=== PATIENT | female | born 1985 | race Caucasian/White ===

== ENCOUNTER 2020-08-17 20:10 | Emergency (ER) | payer SELFPAY ==
[2020-08-17 22:09] LABS: Absolute Lymphocytes (CBC) 2.4 K/uL (0.7-4.9); Hematocrit 37.5 % (36.0-45.0); Lymphocytes % 22.6 % (15.3-44.8); RBC Red Blood Cell Count 4.44 M/uL (3.86-4.86)
[2020-08-17] MEDS ORDERED: MORPHINE 4 MG/ML SYR ONE (22:12)
[2020-08-17] MEDS ORDERED: ONDANSETRON 4 MG/2 ML VIAL ONE (22:12)
[2020-08-17 22:26] LABS: Potassium 3.6 mmol/L (3.5-5.1)
[2020-08-17] MEDS ORDERED: METHYLPREDNISOLONE 125 MG INJ ONE (23:39)
--- NOTE | 2020-08-18 00:02 | EDPHYS ---
Physician Documentation [facility] Name: Selena Penn Age: 35 yrs Sex: Female : 1985 Arrival Date: 08/17/2020 Time: 20:15 Bed 17 Private MD: ED Physician Sterling Mercado HPI: 08/17 23:38 This 35 yrs old Female presents to ER via Ambulatory with complaints of jr8 forearm nerve pain. 23:38 The complaints affect the dorsal aspect of left forearm. Onset: The symptoms/episode jr8 began/occurred gradually, 2 week(s) ago, and became worse. Modifying factors: The symptoms are alleviated by nothing. the symptoms are aggravated by movement. Associated signs and symptoms: Pertinent positives: erythema, pain, swelling, warmth. Severity of symptoms: At their worst the symptoms were moderate, in the emergency department the symptoms are unchanged. The patient has not experienced similar symptoms in the past. The patient has not recently seen a physician. 23:58 Patient stated that she has had on/off pain and swelling to left forearm for past two jr8 weeks. Stated that it now is getting more constant. Hypersensitive to touch and feels like pins and needles. Stated that it will get mildly red but without specific rash or lesions . 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 - Social history:: Smoking status: Patient denies any tobacco usage or history of. ROS: 23:38 Eyes: Negative for injury, pain, redness, and discharge, ENT: Negative for injury, jr8 pain, and discharge, Neck: Negative for injury, pain, and swelling, Cardiovascular: Negative for chest pain, palpitations, and edema, Respiratory: Negative for shortness of breath, cough, wheezing, and pleuritic chest pain, Abdomen/GI: Negative for abdominal pain, nausea, vomiting, diarrhea, and constipation, Back: Negative for injury and pain, MS/Extremity: Negative for injury and deformity, Neuro: Negative for headache, weakness, numbness, tingling, and seizure. 23:38 Skin: Positive for erythema, swelling, of the dorsal aspect of left forearm. Exam: 23:38 Eyes: Pupils equal round and reactive to light, extra-ocular motions intact. Lids and jr8 lashes normal. Conjunctiva and sclera are non-icteric and not injected. Cornea within normal limits. Periorbital areas with no swelling, redness, or edema. ENT: Nares patent. No nasal discharge, no septal abnormalities noted. Tympanic membranes are normal and external auditory canals are clear. Oropharynx with no redness, swelling, or masses, exudates, or evidence of obstruction, uvula midline. Mucous membranes moist. Neck: Trachea midline, no thyromegaly or masses palpated, and no cervical lymphadenopathy. Supple, full range of motion without nuchal rigidity, or vertebral point tenderness. No Meningismus. Cardiovascular: Regular rate and rhythm with a normal S1 and S2. No gallops, murmurs, or rubs. Normal PMI, no JVD. No pulse deficits. Respiratory: Lungs have equal breath sounds bilaterally, clear to auscultation and percussion. No rales, rhonchi or wheezes noted. No increased work of breathing, no retractions or nasal flaring. Abdomen/GI: Soft, non-tender, with normal bowel sounds. No distension or tympany. No guarding or rebound. No evidence of tenderness throughout. Back: No spinal tenderness. No costovertebral tenderness. Full range of motion. Skin: Warm, dry with normal turgor. Neuro: Awake and alert, GCS 15, oriented to person, place, time, and situation. Cranial nerves II-XII grossly intact. Motor strength 5/5 in all extremities. Sensory grossly intact. Cerebellar exam normal. Normal gait. 23:38 Musculoskeletal/extremity: Extremities: grossly normal except: noted in the dorsal aspect of left forearm: Patient has mild swelling noted to dorsal forearm with mild redness and moderate tenderness to the arm with both light and moderate touch , ROM: intact in all extremities, Circulation is intact in all extremities. Sensation intact. Vital Signs: 20:23 BP 158 / 109; Pulse 93; Resp 16 S; Temp 99.4(O); Pulse Ox 99% on R/A; Weight 90.72 kg jd3 (R); Height 5 ft. 0 in. (152.40 cm) (R); Pain 6/10; 22:00 BP 144 / 100; Pulse 79; Resp 18; Pulse Ox 99% on R/A; wh 23:45 BP 164 / 96; Pulse 67; Resp 18; Pulse Ox 100% on R/A; Pain 1/10; wh 20:23 Body Mass Index 39.06 (90.72 kg, 152.40 cm) jd3 MDM: 20:44 Patient medically screened. jr8 23:58 Data reviewed: vital signs, nurses notes, lab test result(s). Data interpreted: Pulse jr8 oximetry: on room air is 100 %. Interpretation: normal. Counseling: I had a detailed discussion with the patient and/or guardian regarding: the historical points, exam findings, and any diagnostic results supporting the discharge/admit diagnosis, lab results, the need for outpatient follow up, a family practitioner, to return to the emergency department if symptoms worsen or persist or if there are any questions or concerns that arise at home. Response to treatment: the patient's symptoms have markedly improved after treatment. ED course: Color and pain decreased in arm. Patient feeling better. Discussed with patient that this seems to be inflammatory in nature and not infectious at this time. Could also be atypical shingles presentation. Will treat as such. If worse or does not subside to come back or f/u with PCP. Patient good with this . 08/17 21:42 Order name: CBC with Diff; Complete Time: 22:46 jr8 08/17 21:42 Order name: Basic Metabolic Panel; Complete Time: 22:46 jr8 08/17 21:42 Order name: ESR; Complete Time: 22:46 jr8 08/17 21:42 Order name: CRP; Complete Time: 22:46 jr8 08/17 21:42 Order name: Procalcitonin; Complete Time: 23:17 jr8 08/17 21:42 Order name: Blood Culture Adult (2) jr8 08/17 21:42 Order name: IV; Complete Time: 21:57 jr8 08/17 21:42 Order name: CK; Complete Time: 22:46 jr8 Administered Medications: 22:08 Drug: morphine 4 mg {Note: RASS 0.} Route: IVP; Site: right antecubital; 23:20 Follow up: Response: No adverse reaction; Pain is decreased; RASS: Alert and Calm (0) 22:10 Drug: Zofran (Ondansetron) 4 mg Route: IVP; Site: right antecubital; 23:20 Follow up: Response: No adverse reaction; Nausea is decreased 23:36 Drug: SOLU-Medrol 125 mg Route: IVP; Site: right antecubital; 08/18 00:13 Follow up: Response: No adverse reaction 08/17 23:38 Drug: Cefepime 2 grams Route: IVPB; Rate: 200 ml/hr; Infused Over: 30 mins; Site: right antecubital; 08/18 00:13 Follow up: Response: No adverse reaction; IV Status: Completed infusion Disposition: 08/18/20 00:01 Discharged to Home. Impression: Rash and other nonspecific skin eruption, Pain in left forearm. - Condition is Stable. - Discharge Instructions: Shingles. - Prescriptions for Prednisone 20 mg Oral Tablet - take 3 tablet by ORAL route once daily for 5 days; 15 tablet. Acyclovir 800 mg Oral Tablet - take 1 tablet by ORAL route 5 times per day for 7 days; 35 tablet. - Medication Reconciliation Form, Thank You Letter, Antibiotic Education, Prescription Opioid Use form. - Follow up: Private Physician; When: 1 week; Reason: Recheck today's complaints, Continuance of care, Re-evaluation by your physician. - Problem is new. - Symptoms have improved. Addendum: 08/20/2020 01:28 Addendum: Patient called the ER and reports symptoms of body aches along with nausea as p m1 she takes each dose of acyclovir. She has taken prednisone in the past without any issues. Called in a prescription to her pharmacy [facility] in [place] for Valtrex 1 gram PO Q8 for 7 days, dispense #21. 07:10 Co-signature as Attending Physician, Sterling Mercado MD I agree with the assessment and c spencer plan of care. Signatures: Dispatcher [employer] Sterling Mccarthy MD MD cha Roszak, Josh, RAHEL PA jr8 [place], ACUTE CARE NURSE PRACTITIONER ACUTE CARE NURSE PRACTITIONER pm1 Phuc Kang Alexandr Swanson RN RN jd3 Corrections: (The following items were deleted from the chart) 08/18 00:13 00:01 08/18/2020 00:01 Discharged to Home. Impression: Rash and other nonspecific skin wh eruption; Pain in left forearm. Condition is Stable. Forms are Medication Reconciliation Form, Thank You Letter, Antibiotic Education, Prescription Opioid Use. Follow up: Private Physician; When: 1 week; Reason: Recheck today's complaints, Continuance of care, Re-evaluation by your physician. Problem is new. Symptoms have improved. jr8
--- NOTE | 2020-08-18 00:02 | ER ---
Nurse's Notes [facility] Name: Selena Penn Age: 35 yrs Sex: Female : 1985 Arrival Date: 08/17/2020 Time: 20:15 Bed 17 Private MD: Diagnosis: Rash and other nonspecific skin eruption;Pain in left forearm Presentation: 08/17 20:18 Chief complaint: Patient states: "it started accouple of weeks ago. but i have been jd3 having this on and off rash on my left forearm. regardless of the rash, i am having this burning nerve pain that is starting to spread.". Coronavirus screen: At this time, the client does not indicate any symptoms associated with coronavirus-19. Ebola Screen: Patient negative for fever greater than or equal to 101.5 degrees Fahrenheit, and additional compatible Ebola Virus Disease symptoms. Initial Sepsis Screen: Does the patient meet any 2 criteria? No. Patient's initial sepsis screen is negative. Does the patient have a suspected source of infection? No. Patient's initial sepsis screen is negative. Risk Assessment: Do you want to hurt yourself or someone else? Patient reports no desire to harm self or others. Onset of symptoms was August 17, 2020. 20:18 Method Of Arrival: Ambulatory jd3 20:18 Acuity: SAMSON 3 jd3 20:26 Note Tylenol last taken at about 1200. 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 - Social history:: Smoking status: Patient denies any tobacco usage or history of. Screenin:00 Abuse screen: Denies threats or abuse. Denies injuries from another. Nutritional wh screening: No deficits noted. Tuberculosis screening: No symptoms or risk factors identified. Fall Risk None identified. Assessment: 20:50 General: Appears in no apparent distress. Behavior is calm, cooperative, appropriate wh for age. Pain: Complains of pain in dorsal aspect of left forearm Pain does not radiate. Pain currently is 6 out of 10 on a pain scale. Quality of pain is described as tingling, stinging. Neuro: Level of Consciousness is awake, alert, obeys commands, Oriented to person, place, time, situation, Appropriate for age Reports paresthesias. Cardiovascular: Capillary refill < 3 seconds. Respiratory: Airway is patent Respiratory effort is even, unlabored, Respiratory pattern is regular, symmetrical. GI: Abdomen is flat, non-distended. : No signs and/or symptoms were reported regarding the genitourinary system. EENT: No signs and/or symptoms were reported regarding the EENT system. Derm: Skin is intact, is healthy with good turgor, Skin is pink, warm \\T\\ dry. normal. Musculoskeletal: Circulation, motion, and sensation intact. 22:30 Reassessment: Patient appears in no apparent distress at this time. No changes from previously documented assessment. Patient and/or family updated on plan of care and expected duration. Pain level reassessed. Patient is alert, oriented x 3, equal unlabored respirations, skin warm/dry/pink. 23:54 Reassessment: Patient appears in no apparent distress at this time. Patient and/or family updated on plan of care and expected duration. Pain level reassessed. Patient is alert, oriented x 3, equal unlabored respirations, skin warm/dry/pink. Patient states feeling better. Patient states symptoms have improved. Vital Signs: 20:23 BP 158 / 109; Pulse 93; Resp 16 S; Temp 99.4(O); Pulse Ox 99% on R/A; Weight 90.72 kg jd3 (R); Height 5 ft. 0 in. (152.40 cm) (R); Pain 6/10; 22:00 BP 144 / 100; Pulse 79; Resp 18; Pulse Ox 99% on R/A; wh 23:45 BP 164 / 96; Pulse 67; Resp 18; Pulse Ox 100% on R/A; Pain 1/10; wh 20:23 Body Mass Index 39.06 (90.72 kg, 152.40 cm) jd3 ED Course: 20:15 Patient arrived in ED. am2 20:20 Triage completed. jd3 20:22 Arm band placed on. jd3 20:31 Phuc Kang is Primary Nurse. 20:43 Alejandro Stover PA is PHCP. jr8 20:43 Sterling Mercado MD is Attending Physician. jr8 21:00 Patient has correct armband on for positive identification. Bed in low position. Call light in reach. Side rails up X 1. Pulse ox on. NIBP on. 21:00 Inserted saline lock: 20 gauge in right antecubital area, using aseptic technique. Blood collected. 08/18 00:12 No provider procedures requiring assistance completed. IV discontinued, intact, bleeding controlled, No redness/swelling at site. Administered Medications: 08/17 22:08 Drug: morphine 4 mg {Note: RASS 0.} Route: IVP; Site: right antecubital; 23:20 Follow up: Response: No adverse reaction; Pain is decreased; RASS: Alert and Calm (0) 22:10 Drug: Zofran (Ondansetron) 4 mg Route: IVP; Site: right antecubital; 23:20 Follow up: Response: No adverse reaction; Nausea is decreased 23:36 Drug: SOLU-Medrol 125 mg Route: IVP; Site: right antecubital; 08/18 00:13 Follow up: Response: No adverse reaction 08/17 23:38 Drug: Cefepime 2 grams Route: IVPB; Rate: 200 ml/hr; Infused Over: 30 mins; Site: right antecubital; 08/18 00:13 Follow up: Response: No adverse reaction; IV Status: Completed infusion Outcome: 00:01 Discharge ordered by . jr8 00:13 Discharged to home ambulatory. 00:13 Condition: stable 00:13 Discharge instructions given to patient, Instructed on discharge instructions, follow up and referral plans. medication usage, POC Demonstrated understanding of instructions, follow-up care, medications, POC Prescriptions given X 2. 00:13 Patient left the ED. Signatures: Alejandro Stover PA PA jr8 Meena Good Winsy Alexandr Swanson, RN RN jd3 Corrections: (The following items were deleted from the chart) 08/17 20:26 20:23 Pulse 93bpm; Resp 16bpm; Spontaneous; Pulse Ox 99% RA; Temp 99.4F Oral; 90.72 kg jd3 Reported; Height 5 ft. 0 in. Reported; BMI: 39.0; Pain 6/10; jd3 23:55 23:45 BP 164 / 96; Pulse 67bpm; Resp 18bpm; Pulse Ox 100% RA; wh wh
[2020-08-18 00:26] VITALS: TEMP 99.4
[2020-08-18 00:29] VITALS: BP 164/96; O2SAT 100
== END 2020-08-18 00:13 | disposition home or self-care (01) ==
LOC: ER 20:10
DX: R21 Rash and other nonspecific skin eruption (principal); Z91.040 Latex allergy status; Z91.013 Allergy to seafood; Z91.048 Other nonmedicinal substance allergy status
CPT/HCPCS: 36415; 80048; 82550; 84145; 85025; 85652; 86140; 87040; 96365; 96375; 99284; J2405; J2930

== ENCOUNTER 2020-11-19 12:28 | Emergency (ER) | payer OTHER, SELFPAY ==
[2020-11-19 16:42] LABS: SARS-COV-2 RT PCR NEGATIVE (NEGATIVE)
--- NOTE | 2020-11-19 16:54 | EDPHYS ---
Physician Documentation 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 0 in. (152.40 cm); 17:10 BP 130 / 78; Pulse 111; Resp 22; Pulse Ox 99% on R/A; sv 13:02 Body Mass Index 39.06 (90.72 kg, 152.40 cm) sv MDM: 16:54 Patient medically screened. snw 11/19 12:33 Order name: Strep; Complete Time: 15:49 snw 11/19 14:57 Order name: Throat Culture EDMS 11/19 16:42 Order name: COVID-19/FLU A+B; Complete Time: 16:53 EDMS 11/19 16:55 Order name: Recheck VS snw Administered Medications: No medications were administered Disposition: 11/19/20 16:54 Discharged to Home. Impression: Acute upper respiratory infection, unspecified, Acute bronchitis, Acute laryngitis. - Condition is Stable. - Discharge Instructions: Acute Bronchitis, Adult, Laryngitis, Upper Respiratory Infection, Adult. - Prescriptions for promethazine 25 mg Oral Tablet - take 1 tablet by ORAL route every 6 hours As needed; 20 tablet. Prednisone 20 mg Oral Tablet - take 2 tablet by ORAL route once daily for 5 days; 10 tablet. Albuterol Sulfate 90 mcg/actuation - inhale 1-2 puff by INHALATION route every 4-6 hours; 1 Inhaler. Zithromax 500 mg Oral Tablet - take 1 tablet by ORAL route once daily for 5 days; 5 tablet. - Work release form, Medication Reconciliation Form, Thank You Letter, Antibiotic Education, Prescription Opioid Use form. - Follow up: Emergency Department; When: As needed; Reason: Worsening of condition, Recheck today's complaints. Follow up: Private Physician; When: 2 - 3 days; Reason: Recheck today's complaints, Continuance of care, Re-evaluation by your physician. Addendum: 11/29/2020 08:38 Addendum: Pt states she has been hoarse, tired, coughing, with bilateral ear pain since s nw 11/08/20. Low grade, subjective fever. Some occasional streaks of blood with sputum. Skin w/d, afebrile. Hoarse, TM normal bilaterally, pharynx with mild erythema, nose clear. Heart with reg, rate, rhythm with mild tachycardia. Lungs with rhonchi bilaterally and wheeze on forced exhalation. Abd soft, NT, ND, BS x 4 quads positive. Pulses present and equal upper and lower. . 11/30/2020 05:43 Co-signature as Attending Physician, Sterling Mercado MD I agree with the assessment and c spencer plan of care. Signatures: Dispatcher [employer] [facility] [place] Karol Lisa, Sterling Rodríguez RN, MD MD cha Waters, Shelly, MICROFILM EQUIPMENT INSPECTOR-C MICROFILM EQUIPMENT INSPECTOR-Csnw Corrections: (The following items were deleted from the chart) 11/19 15:32 12:34 CORONAVIRUS+ ordered. [facility] 17:11 16:54 11/19/2020 16:54 Discharged to Home. Impression: Acute upper respiratory snw infection, unspecified. Condition is Stable. Forms are Medication Reconciliation Form, Thank You Letter, Antibiotic Education, Prescription Opioid Use. Follow up: Emergency Department; When: As needed; Reason: Worsening of condition, Recheck today's complaints. Follow up: Private Physician; When: 2 - 3 days; Reason: Recheck today's complaints, Continuance of care, Re-evaluation by your physician. snw 17:16 17:11 11/19/2020 16:54 Discharged to Home. Impression: Acute upper respiratory sv infection, unspecified; Acute bronchitis; Acute laryngitis. Condition is Stable. Discharge Instructions: Upper Respiratory Infection, Adult. Prescriptions for promethazine 25 mg Oral Tablet - take 1 tablet by ORAL route every 6 hours As needed; 20 tablet. and Forms are Medication Reconciliation Form, Thank You Letter, Antibiotic Education, Prescription Opioid Use. Follow up: Emergency Department; When: As needed; Reason: Worsening of condition, Recheck today's complaints. Follow up: Private Physician; When: 2 - 3 days; Reason: Recheck today's complaints, Continuance of care, Re-evaluation by your physician. snw
--- NOTE | 2020-11-19 16:54 | ER ---
Nurse's Notes [facility] Name: Selena Penn Age: 35 yrs Sex: Female : 1985 Arrival Date: 11/19/2020 Time: 12:31 Bed Waiting Private MD: Diagnosis: Acute upper respiratory infection, unspecified;Acute bronchitis;Acute laryngitis Presentation: 11/19 13:00 Chief complaint: Patient states: cough, hoarse voice, vomiting with coughing streaked sv blood, sandra ear pain, and dizziness since 11/08/20. Coronavirus screen: Client denies travel out of the [place] in the last 14 days. Client presents with at least one sign or symptom that may indicate coronavirus-19. Standard/surgical mask placed on the client. Provider contacted for isolation considerations. Ebola Screen: No symptoms or risks identified at this time. Risk Assessment: Do you want to hurt yourself or someone else? Patient reports no desire to harm self or others. Onset of symptoms was November 08, 2020. 13:00 Method Of Arrival: Ambulatory sv 13:00 Acuity: SAMSON 3 sv 13:02 Initial Sepsis Screen: Does the patient meet any 2 criteria? No. Patient's initial sv sepsis screen is negative. Does the patient have a suspected source of infection? No. Patient's initial sepsis screen is negative. Triage Assessment: 13:04 General: Appears in no apparent distress. uncomfortable, Behavior is calm, cooperative, sv appropriate for age. Neuro: Level of Consciousness is awake, alert, obeys commands, Oriented to person, place, time, situation, Gait is steady. Respiratory: Respiratory effort is even, unlabored. 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 Denies injuries from another. Nutritional sv screening: No deficits noted. Tuberculosis screening: No symptoms or risk factors identified. Fall Risk None identified. Assessment: 17:10 Reassessment: Patient appears in no apparent distress at this time. No changes from sv previously documented assessment. Patient and/or family updated on plan of care and expected duration. Pain level reassessed. Patient is alert, oriented x 3, equal unlabored respirations, skin warm/dry/pink. See triage assessment. Vital Signs: 13:02 BP 135 / 92; Pulse 108; Resp 20; Temp 98.1; Pulse Ox 98% ; Weight 90.72 kg; Height 5 sv ft. 0 in. (152.40 cm); 17:10 BP 130 / 78; Pulse 111; Resp 22; Pulse Ox 99% on R/A; sv 13:02 Body Mass Index 39.06 (90.72 kg, 152.40 cm) sv ED Course: 12:31 Patient arrived in ED. rg4 13:02 Triage completed. sv 13:02 Arm band placed on. sv 14:20 COVID swab sent to lab. Flu and/or RSV swab sent to lab. Strep swab sent to lab. sv 14:59 Throat Culture Sent. sv 15:50 Rad[facility] Dean [facility]C [facility]. snw 15:50 Sterling Mercado MD is Attending Physician. snw 17:09 Nurse Practitioner and/or Physician Kineseologist to see patient. sv 17:10 Patient has correct armband on for positive identification. sv 17:10 No provider procedures requiring assistance completed. Patient did not have IV access sv during this emergency room visit. 17:13 Karol Lisa RN is Primary Nurse. sv Administered Medications: No medications were administered Outcome: 16:54 Discharge ordered by . snw 17:15 Discharged to home ambulatory. sv 17:15 Condition: stable 17:15 Discharge instructions given to patient, Instructed on discharge instructions, follow up and referral plans. no drinking with medication, no driving heavy equipment, medication usage, Demonstrated understanding of instructions, follow-up care, medications, Prescriptions given X 4. 17:16 Patient left the ED. sv Signatures: Karol Lisa RN RN sv Radha Dean FNP-C FNP-Bcw Zakia Galan rg4 Corrections: (The following items were deleted from the chart) 13:04 13:00 Chief complaint: Patient states: cough, hoarse voice, vomiting with coughing sv streaked blood, and dizziness since 11/08/20. sv 13:05 13:02 Pulse 108bpm; Resp 20bpm; Pulse Ox 98%; Temp 98.1F; 90.72 kg; Height 5 ft. 0 in.; sv BMI: 39.0; sv 17:14 13:02 BP 151 / 123; Pulse 108bpm; Resp 20bpm; Pulse Ox 98%; Temp 98.1F; 90.72 kg; sv Height 5 ft. 0 in.; BMI: 39.0; sv 19:56 17:10 Pulse 111bpm; Resp 22bpm; Pulse Ox 99% RA; sv sv
[2020-11-19 17:40] VITALS: BP 135/92; TEMP 98.1
[2020-11-19 17:42] VITALS: O2SAT 99
== END 2020-11-19 17:16 | disposition home or self-care (01) ==
LOC: ER 12:28
DX: J20.9 Acute bronchitis, unspecified (principal); J04.0 Acute laryngitis; J06.9 Acute upper respiratory infection, unspecified; Z20.822 Contact with and (suspected) exposure to COVID-19; Z91.013 Allergy to seafood; Z91.040 Latex allergy status; Z91.048 Other nonmedicinal substance allergy status
CPT/HCPCS: 87070; 87081; 0240U; 99283

== ENCOUNTER 2021-02-04 21:37 | Emergency (ER) | payer OTHER ==
[2021-02-05] MEDS ORDERED: HYDROCODONE/APAP 10/325 TAB ONE
[2021-02-05] MEDS ORDERED: CYCLOBENZAPRINE 10 MG TAB ONE
[2021-02-05] MEDS ORDERED: LIDOCAINE 4% PATCH ONE (00:01)
[2021-02-05 00:16] LABS: Urine Blood NEGATIVE (NEG); Urine Glucose NEGATIVE (NEG); Urine Protein NEGATIVE (NEG); Urine Specific Gravity 1.025 (1.005-1.030)
--- NOTE | 2021-02-05 00:52 | EDPHYS ---
Physician Documentation [facility] Name: Selena Penn Age: 36 yrs Sex: Female : 1985 Arrival Date: 02/04/2021 Time: 21:40 Bed 17 Private MD: ED Physician Scott Soto HPI: 02/04 23:22 This 36 yrs old Female presents to ER via Ambulatory with complaints of Low pm1 Back Pain. 23:22 The patient presents with pain that is acute. The symptoms are located in the low back. pm1 The pain radiates to the right leg and left leg. The problem was sustained sitting on wooden chair for extended period of time and then when she tried to get up she started experiencing low back pain with radiation to bilateral hamstring area. Onset: The symptoms/episode began/occurred 1 week(s) ago. Modifying factors: The patient symptoms are alleviated by specific position, lying down, the patient symptoms are aggravated by movement, occasionally with walking. Associated signs and symptoms: Pertinent negatives: abdominal pain, dysuria, fever, incontinence, numbness, tingling. Severity of symptoms: in the emergency department the symptoms are actually worse, a " 8" out of "10". The patient has experienced similar episodes in the past, several times, and the symptoms today are exactly the same, to previous sciatica. The patient has not recently seen a physician. 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 - Social history:: Smoking status: Patient denies any tobacco usage or history of. ROS: 23:25 Constitutional: Negative for fever, chills, and weight loss. pm1 23:25 : Negative for injury, bleeding, discharge, and swelling, MS/Extremity: Negative for injury and deformity, Skin: Negative for injury, rash, and discoloration. 23:25 Cardiovascular: Negative for chest pain, palpitations, and edema, Respiratory: Negative for shortness of breath, cough, wheezing, and pleuritic chest pain, Abdomen/GI: Negative for abdominal pain, nausea, vomiting, diarrhea, and constipation. 23:25 Back: Positive for pain with movement, radiated pain, of the low back area, Negative for injury or acute deformity. 23:25 Neuro: Negative for numbness, tingling, weakness. Exam: 23:25 Constitutional: This is a well developed, well nourished patient who is awake, alert, pm1 and in no acute distress. Head/Face: Normocephalic, atraumatic. Neck: Trachea midline, no thyromegaly or masses palpated, and no cervical lymphadenopathy. Supple, full range of motion without nuchal rigidity, or vertebral point tenderness. No Meningismus. 23:25 Cardiovascular: Exam negative for acute changes, Rate: normal, Rhythm: regular, Pulses: no pulse deficits are appreciated. 23:25 Respiratory: Exam negative for acute changes, respiratory distress, shortness of breath. 23:25 Abdomen/GI: Inspection: obese Palpation: abdomen is soft and non-tender, in all quadrants. 23:25 Back: normal spinal alignment noted, muscle spasm, is appreciated in the left low back and right low back, Straight leg raises: right lower extremity does not illicit pain, left lower extremity illicits pain, at 30 degrees. 23:25 Skin: Warm, dry with normal turgor. Normal color with no rashes, no lesions, and no pm1 evidence of cellulitis. MS/ Extremity: Pulses equal, no cyanosis. Neurovascular intact. Full, normal range of motion. 23:25 Neuro: Orientation: is normal, Mentation: is normal, Motor: moves all fours, strength is 5/5 in all extremities, strength is 5/5 in the dorsi and plantar flexion of bilateral great toes, Sensation: is normal, no obvious gross deficits. Vital Signs: 21:47 BP 156 / 103; Pulse 96; Resp 17; Temp 98.9; Pulse Ox 99% ; Weight 92.99 kg; Height 5 ll1 ft. 0 in. (152.40 cm); Pain 9/10; 21:47 Body Mass Index 40.04 (92.99 kg, 152.40 cm) ll1 MDM: 23:10 Patient medically screened. pm1 02/05 00:43 Data reviewed: vital signs. Data interpreted: Pulse oximetry: on room air is 99 %. pm1 Interpretation: normal. Counseling: I had a detailed discussion with the patient and/or guardian regarding: the historical points, exam findings, and any diagnostic results supporting the discharge/admit diagnosis, the need for outpatient follow up, a family practitioner, a neurosurgeon, MRI, to return to the emergency department if symptoms worsen or persist or if there are any questions or concerns that arise at home. 01:09 ED course: Patient reports improvement in symptoms post massage to lower back spasms. pm1 02/04 23:45 Order name: Urine Dipstick--Ancillary (enter results) mw2 02/04 23:45 Order name: Urine --Ancillary (enter results) mw2 02/04 23:45 Order name: Urine Dipstick-Ancillary; Complete Time: 00:22 EDMS 02/04 23:45 Order name: Urine --Ancillary; Complete Time: 00:22 EDMS 02/04 23:19 Order name: Urine Dipstick-Ancillary (obtain specimen); Complete Time: 23:29 pm1 02/04 23:19 Order name: Urine Test (obtain specimen); Complete Time: 23:29 pm1 Administered Medications: 02/04 23:46 Drug: Lidoderm 5 % (700 mg/patch) 1 patches Route: Topical; Site: affected area; sf 02/05 00:53 Follow up: Response: No adverse reaction; Pain is decreased sf 02/04 23:46 Drug: [place] 10 mg-325 mg 1 tabs Route: PO; sf 02/05 00:53 Follow up: Response: No adverse reaction; Pain is decreased sf 02/04 23:46 Drug: Flexeril (cyclobenzaprine) 10 mg Route: PO; sf 02/05 00:53 Follow up: Response: No adverse reaction; Pain is decreased sf 01:00 Drug: Decadron 10 mg Route: IM; Site: left ventrogluteal; sf 01:20 Follow up: Response: No adverse reaction sf Disposition: 06:31 Co-signature as Attending Physician, Scott Soto MD. ma2 Disposition: 02/05/21 00:51 Discharged to Home. Impression: Low back pain. - Condition is Stable. - Discharge Instructions: Back Pain, Adult, Sciatica. - Prescriptions for Lidoderm 5 % Topical adhesive patch,medicated - apply 1 patch by TRANSDERMAL route once daily As needed 12 hours on and 12 hours off in a 24 hour period; 30 Transdermal Patch. Tylenol- Codeine #3 300-30 mg Oral Tablet - take 2 tablets by ORAL route every 4-6 hours As needed; 20 tablet. Cyclobenzaprine 10 mg Oral Tablet - take 1 tablet by ORAL route every 8 hours As needed; 30 tablet. Medrol (Ezra) 4 mg Oral Tablets, Dose Pack - take 1 tablet by ORAL route as directed - follow package instructions; 1 packet. - Medication Reconciliation Form, Thank You Letter, Antibiotic Education, Prescription Opioid Use form. - Follow up: Emergency Department; When: As needed; Reason: Worsening of condition. Follow up: Private Physician; When: 2 - 3 days; Reason: Recheck today's complaints, Continuance of care, Re-evaluation by your physician. - Problem is new. - Symptoms have improved. 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 Impression: Low back pain. Condition is sf Stable. Discharge Instructions: Back Pain, Adult, Sciatica. Prescriptions for Lidoderm 5 % Topical adhesive patch,medicated - apply 1 patch by TRANSDERMAL route once daily As needed 12 hours on and 12 hours off in a 24 hour period; 30 Transdermal Patch, Tylenol-Codeine #3 300-30 mg Oral Tablet - take 2 tablet by ORAL route every 4-6 hours As needed; 30 tablet, Cyclobenzaprine 10 mg Oral Tablet - take 1 tablet by ORAL route every 8 hours As needed; 30 tablet. and Forms are Medication Reconciliation Form, Thank You Letter, Antibiotic Education, Prescription Opioid Use. Follow up: Emergency Department; When: As needed; Reason: Worsening of condition. Follow up: Private Physician; When: 2 - 3 days; Reason: Recheck today's complaints, Continuance of care, Re-evaluation by your physician. Problem is new. Symptoms have improved. pm1
--- NOTE | 2021-02-05 00:52 | ER ---
Nurse's Notes [facility] Name[facility] Selena Penn Age: 36 yrs Sex: Female : 1985 Arrival Date: 02/04/2021 Time: 21:40 Bed 17 Private MD: Diagnosis: Low back pain Presentation: 02/04 21:47 Chief complaint: Patient states: Low back pain for 2 weeks. Pain radiates into both ll1 legs at times. Left lower back pain is worse than R side today. No MVC or trauma. Coronavirus screen: Client denies travel out of the [place] in the last 14 days. At this time, the client does not indicate any symptoms associated with coronavirus-19. Ebola Screen: Patient denies travel to an Ebola-affected area in the 21 days before illness onset. Initial Sepsis Screen: Does the patient meet any 2 criteria? HR > 90 bpm. No. Patient's initial sepsis screen is negative. Does the patient have a suspected source of infection? Yes: Bone or joint infection. Risk Assessment: Do you want to hurt yourself or someone else? Patient reports no desire to harm self or others. Onset of symptoms was January 21, 2021. 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 - Social history:: Smoking status: Patient denies any tobacco usage or history of. Screenin:15 Abuse screen: Denies threats or abuse. Denies injuries from another. Nutritional sf screening: No deficits noted. Tuberculosis screening: No symptoms or risk factors identified. Never had TB. Possible symptoms: None Risk factors: None. Fall Risk None identified. No fall in past 12 months (0 pts). No secondary diagnosis (0 pts). No IV (0 pts). Ambulatory Aid- None/Bed Rest/Nurse Assist (0 pts). Gait- Impaired (20 pts.). Mental Status- Oriented to own ability (0 pts). Total Hill Fall Scale indicates No Risk (0-24 pts). Assessment: 23:11 General: Appears in no apparent distress. uncomfortable, Behavior is calm, cooperative, sf appropriate for age. Pain: Complains of pain in lumbar area, left low back and right low back Pain radiates to right leg and left leg Pain currently is 9 out of 10 on a pain scale. Neuro: No deficits noted. Level of Consciousness is awake, alert, Oriented to person, place, time, situation. Cardiovascular: No deficits noted. Patient's skin is warm and dry. Respiratory: No deficits noted. Airway is patent Respiratory effort is even, unlabored, Respiratory pattern is regular, symmetrical. GI: No signs and/or symptoms were reported involving the gastrointestinal system. : No signs and/or symptoms were reported regarding the genitourinary system. EENT: No signs and/or symptoms were reported regarding the EENT system. Derm: No signs and/or symptoms reported regarding the dermatologic system. Musculoskeletal: Tenderness present in back Reports pain in back, right leg and left leg Denies weakness in right leg and left leg. Vital Signs: 21:47 BP 156 / 103; Pulse 96; Resp 17; Temp 98.9; Pulse Ox 99% ; Weight 92.99 kg; Height 5 ll1 ft. 0 in. (152.40 cm); Pain 9/10; 21:47 Body Mass Index 40.04 (92.99 kg, 152.40 cm) ll1 ED Course: 21:40 Patient arrived in ED. cl3 21:49 Triage completed. ll1 21:51 Arm band placed on. ll1 23:01 Reynold Francisco RN is Primary Nurse. sf 23:03 Can Bush NP is PHCP. pm1 23:03 Scott Soto MD is Attending Physician. pm1 23:15 Patient has correct armband on for positive identification. Placed in gown. Bed in low sf position. Call light in reach. Side rails up X 1. Door closed. Noise minimized. Visitors limited. Lights dimmed. Verbal reassurance given. 02/05 00:53 Urine --Ancillary (enter results) Sent. sf 00:53 Urine Dipstick--Ancillary (enter results) Sent. sf 01:20 No provider procedures requiring assistance completed. Patient did not have IV access sf during this emergency room visit. Administered Medications: 02/04 23:46 Drug: Lidoderm 5 % (700 mg/patch) 1 patches Route: Topical; Site: affected area; sf 02/05 00:53 Follow up: Response: No adverse reaction; Pain is decreased sf 02/04 23:46 Drug: [place] 10 mg-325 mg 1 tabs Route: PO; sf 02/05 00:53 Follow up: Response: No adverse reaction; Pain is decreased sf 02/04 23:46 Drug: Flexeril (cyclobenzaprine) 10 mg Route: PO; sf 02/05 00:53 Follow up: Response: No adverse reaction; Pain is decreased sf 01:00 Drug: Decadron 10 mg Route: IM; Site: left ventrogluteal; sf 01:20 Follow up: Response: No adverse reaction sf Outcome: 00:51 Discharge ordered by MD. pm1 01:20 Discharged to home ambulatory. sf 01:20 Condition: stable 01:20 Discharge instructions given to patient, Instructed on discharge instructions, follow up and referral plans. medication usage, Demonstrated understanding of instructions, follow-up care, medications, Prescriptions given X 4. 01:21 Patient left the ED. sf Signatures: Can Bush NP SUPERVISOR GRADING pm1 Dustin Burgess cl3 Anaya Burgess RN RN ll1 Reynold Francisco RN RN sf Corrections: (The following items were deleted from the chart) 02/04 23: 21:50 Allergies: Latex, Natural Rubber; ll1 sf 23:15 21:50 Allergies: SHELLFISH; ll1 sf
[2021-02-05] MEDS ORDERED: dexAMETHasone 10 MG/ML VIAL ONE (01:12)
[2021-02-05 01:35] VITALS: BP 156/103; TEMP 98.9; O2SAT 99
== END 2021-02-05 01:21 | disposition home or self-care (01) ==
LOC: ER 21:37
DX: M54.5 Low back pain (principal); Z91.013 Allergy to seafood; Z91.040 Latex allergy status; Z91.048 Other nonmedicinal substance allergy status
CPT/HCPCS: 81025; 81003; J1100; 96372; 99283

== ENCOUNTER 2021-03-12 19:49 | Emergency (ER) | payer OTHER ==
[2021-03-12 21:13] LABS: Urine Blood Trace-intact (Negative); Urine Glucose Negative (Negative); Urine Protein Negative (Negative); Urine Specific Gravity 1.025 (1.005-1.030)
[2021-03-12 21:42] LABS: Basophils % 0.6 % (0-1.3); Hematocrit 37.2 % (36.0-45.0); Lymphocytes % 26.1 % (15.3-44.8); MPV 8.3 fL (7.6-11.3); RBC Red Blood Cell Count 4.45 M/uL (3.86-4.86)
[2021-03-12 21:58] LABS: Urine Specific Gravity/Preg 1.025 (1.005-1.030)
[2021-03-12 22:00] LABS: Albumin 3.6 g/dL (3.4-5.0); Bilirubin Direct 0.2 mg/dL (0-0.2); Bilirubin Total 0.8 mg/dL (0.2-1.0); Potassium 3.4 mmol/L (3.5-5.1); Protein, Total 7.8 g/dL (6.4-8.2)
[2021-03-12] MEDS ORDERED: MAGNES/ALUMIN/SIMET 30ML UCUP ONE (22:07)
[2021-03-12] MEDS ORDERED: ONDANSETRON 4 MG/2 ML VIAL ONE (22:07)
[2021-03-12] MEDS ORDERED: LIDOCAINE VISCOUS 2% SOLN 15 ML UDC ONE (22:07)
--- NOTE | 2021-03-12 23:00 | ER ---
Nurse's Notes [facility] Name: Selena Penn Age: 36 yrs Sex: Female : 1985 Arrival Date: 03/12/2021 Time: 20:02 Bed 17 Private MD: Diagnosis: Gastritis, unspecified Presentation: 03/12 20:28 Chief complaint: Patient states: Epigastric pain x 3 x 4 days, aggravated with eating ca1 and drinking fluids. +nausea. Coronavirus screen: Client denies travel out of the [place] in the last 14 days. nausea, Client presents with at least one sign or symptom that may indicate coronavirus-19. Standard/surgical mask placed on the client. Provider contacted for isolation considerations. Ebola Screen: Patient negative for fever greater than or equal to 101.5 degrees Fahrenheit, and additional compatible Ebola Virus Disease symptoms Patient denies exposure to infectious person. Patient denies travel to an Ebola-affected area in the 21 days before illness onset. No symptoms or risks identified at this time. Initial Sepsis Screen: Does the patient meet any 2 criteria? No. Patient's initial sepsis screen is negative. Does the patient have a suspected source of infection? No. Patient's initial sepsis screen is negative. Risk Assessment: Do you want to hurt yourself or someone else? Patient reports no desire to harm self or others. Onset of symptoms was March 12, 2021. 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 - Social history:: Smoking status: Patient denies any tobacco usage or history of. Screenin:00 Abuse screen: Denies threats or abuse. Denies injuries from another. Nutritional rr5 screening: No deficits noted. Tuberculosis screening: No symptoms or risk factors identified. Fall Risk IV access (20 points). Total Hill Fall Scale indicates No Risk (0-24 pts). Assessment: 21:00 General: Appears in no apparent distress. uncomfortable, Behavior is calm, cooperative, rr5 appropriate for age. 21:00 Pain: Complains of pain in epigastric area Pain currently is 6 out of 10 on a pain rr5 scale. Quality of pain is described as aching, Pain began gradually, Is intermittent. Neuro: Level of Consciousness is awake, alert, obeys commands, Oriented to person, place, time, situation. Cardiovascular: Capillary refill < 3 seconds Patient's skin is warm and dry. Respiratory: Airway is patent Respiratory effort is even, unlabored, Respiratory pattern is regular, symmetrical. GI: Abdomen is round obese, Abd is soft and non tender X 4 quads. Reports upper abdominal pain, nausea. : No signs and/or symptoms were reported regarding the genitourinary system. EENT: No signs and/or symptoms were reported regarding the EENT system. Derm: No signs and/or symptoms reported regarding the dermatologic system. Musculoskeletal: Capillary refill < 3 seconds. 22:10 Reassessment: Patient appears in no apparent distress at this time. Patient is alert, rr5 oriented x 3, equal unlabored respirations, skin warm/dry/pink. awaiting for results. 23:21 Reassessment: Patient appears in no apparent distress at this time. Patient is alert, rr5 oriented x 3, equal unlabored respirations, skin warm/dry/pink. discharge instruction given and explained without complaints made. Vital Signs: 20:28 Pulse 100; Resp 18 S; Temp 98.2(O); Pulse Ox 100% on R/A; Weight 90.72 kg (R); Height 5 ca1 ft. 0 in. (152.40 cm) (R); Pain 6/10; 20:32 BP 152 / 93; ca1 22:20 BP 155 / 107; Pulse 95; Resp 16; Pulse Ox 99% ; rr5 23:22 BP 147 / 99; Pulse 85; Resp 17; Pulse Ox 99% ; rr5 20:28 Body Mass Index 39.06 (90.72 kg, 152.40 cm) ca1 ED Course: 20:02 Patient arrived in ED. ag3 20:32 Triage completed. ca1 20:32 Arm band placed on right wrist. ca1 21:00 Patient has correct armband on for positive identification. Placed in gown. Bed in low rr5 position. Call light in reach. Pulse ox on. NIBP on. 21:03 Alejandro Stover PA is PHCP. jr8 21:03 Reinier Arreola MD is Attending Physician. jr8 21:07 Vitaly Monroy, RN is Primary Nurse. rr5 21:27 Inserted saline lock: 20 gauge in right forearm, using aseptic technique. Blood rr5 collected. 22:58 Wily Chacon MD is Referral Physician. jr8 23:21 No provider procedures requiring assistance completed. IV discontinued, intact, rr5 bleeding controlled, No redness/swelling at site. Pressure dressing applied. Administered Medications: 21:53 Drug: Zofran (Ondansetron) 4 mg Route: IVP; Site: right forearm; rr5 23:24 Follow up: Response: No adverse reaction rr5 22:21 Drug: GI Cocktail without - (Maalox Suspension 30 ml, Lidocaine Liquid 2 % 15 rr5 ml) Route: PO; 23:24 Follow up: Response: No adverse reaction; Pain is decreased rr5 Outcome: 22:59 Discharge ordered by . jr8 23:21 Discharged to home ambulatory. rr5 23:21 Condition: stable 23:21 Discharge instructions given to patient, Instructed on discharge instructions, follow up and referral plans. medication usage, Demonstrated understanding of instructions, follow-up care, medications, Prescriptions given X 2. 23:25 Patient left the ED. rr5 Signatures: Alejandro Stover PA PA jr8 Che Dorman ag3 Vitaly oMnroy, RASHAAD RN rr5 Sona Merino RN RN ca1
--- NOTE | 2021-03-12 23:00 | EDPHYS ---
Physician Documentation [facility] Name: Selena Penn Age: 36 yrs Sex: Female : 1985 Arrival Date: 03/12/2021 Time: 20:02 Bed 17 Private MD: ED Physician Reinier Arreola HPI: 03/12 21:53 This 36 yrs old Female presents to ER via Ambulatory with complaints of Abd jr8 Pain > 50 y/o. 21:53 The patient presents with abdominal pain in the epigastric area. Onset: The jr8 symptoms/episode began/occurred gradually, 3 day(s) ago. The symptoms do not radiate. Associated signs and symptoms: Pertinent positives: nausea. The symptoms are described as crampy, sharp. Modifying factors: The symptoms are alleviated by nothing, the symptoms are aggravated by food, certain liquids. Severity of pain: At its worst the pain was moderate in the emergency department the pain is unchanged. The patient has not experienced similar symptoms in the past. The patient has not recently seen a physician. 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 - Social history:: Smoking status: Patient denies any tobacco usage or history of. ROS: 21:53 Eyes: Negative for injury, pain, redness, and discharge, ENT: Negative for injury, jr8 pain, and discharge, Neck: Negative for injury, pain, and swelling, Cardiovascular: Negative for chest pain, palpitations, and edema, Respiratory: Negative for shortness of breath, cough, wheezing, and pleuritic chest pain, Back: Negative for injury and pain, MS/Extremity: Negative for injury and deformity, Skin: Negative for injury, rash, and discoloration, Neuro: Negative for headache, weakness, numbness, tingling, and seizure. 21:53 Abdomen/GI: Positive for abdominal pain, nausea, Negative for vomiting, constipation, abdominal distension, hematemesis. Exam: 21:53 Constitutional: This is a well developed, well nourished patient who is awake, alert, jr8 and in no acute distress. Cardiovascular: Regular rate and rhythm with a normal S1 and S2. No gallops, murmurs, or rubs. Normal PMI, no JVD. No pulse deficits. Respiratory: Lungs have equal breath sounds bilaterally, clear to auscultation and percussion. No rales, rhonchi or wheezes noted. No increased work of breathing, no retractions or nasal flaring. Back: No spinal tenderness. No costovertebral tenderness. Full range of motion. Skin: Warm, dry with normal turgor. Normal color with no rashes, no lesions, and no evidence of cellulitis. MS/ Extremity: Pulses equal, no cyanosis. Neurovascular intact. Full, normal range of motion. Neuro: Awake and alert, GCS 15, oriented to person, place, time, and situation. Cranial nerves II-XII grossly intact. Motor strength 5/5 in all extremities. Sensory grossly intact. Cerebellar exam normal. Normal gait. 21:53 Abdomen/GI: Inspection: obese Bowel sounds: active, all quadrants, Palpation: soft, in all quadrants, moderate abdominal tenderness, in the epigastric area, mass, is not appreciated, rebound tenderness, is not appreciated, voluntary guarding, is not appreciated, involuntary guarding, is not appreciated, no appreciated organomegaly, Indicators: McBurney's point is not tender, Blackman's sign is negative, Rovsing's sign is negative, Liver: tenderness, is not appreciated. Vital Signs: 20:28 Pulse 100; Resp 18 S; Temp 98.2(O); Pulse Ox 100% on R/A; Weight 90.72 kg (R); Height 5 ca1 ft. 0 in. (152.40 cm) (R); Pain 6/10; 20:32 BP 152 / 93; ca1 22:20 BP 155 / 107; Pulse 95; Resp 16; Pulse Ox 99% ; rr5 23:22 BP 147 / 99; Pulse 85; Resp 17; Pulse Ox 99% ; rr5 20:28 Body Mass Index 39.06 (90.72 kg, 152.40 cm) ca1 MDM: 21:12 Patient medically screened. jr8 22:57 Data reviewed: vital signs, nurses notes, lab test result(s), and as a result, I will jr8 discharge patient. Data interpreted: Pulse oximetry: on room air is 100 %. Interpretation: normal. 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 Response to treatment: the patient's symptoms have markedly improved after treatment. ED course: Discussed with patient that she needs endoscopy. Differential would be stricture vs PUD vs gastritis and esophagitis. Will start on meds as well. Knows to come back if symptoms were to worsen or new symptoms were to arise. Patient pleased with disposition . 03/12 21:14 Order name: Urine Dipstick-Ancillary; Complete Time: 21:15 EDMS 03/12 21:18 Order name: Urine --Ancillary (enter results) mw2 03/12 21:19 Order name: Urine --Ancillary; Complete Time: 22:00 EDMS 03/12 21:20 Order name: Basic Metabolic Panel rr5 03/12 21:20 Order name: CBC with Diff rr5 03/12 21:20 Order name: Hepatic Function rr5 03/12 21:20 Order name: Lipase; Complete Time: 22:02 rr5 03/12 21:20 Order name: IV Saline Lock; Complete Time: 21:27 rr5 03/12 21:20 Order name: Labs collected and sent; Complete Time: 21:27 rr5 03/12 21:20 Order name: Basic Metabolic Panel; Complete Time: 22:02 EDMS 03/12 21:20 Order name: CBC with Automated Diff; Complete Time: 21:55 EDMS 03/12 21:20 Order name: Liver (Hepatic) Function; Complete Time: 22:02 EDMS Administered Medications: 21:53 Drug: Zofran (Ondansetron) 4 mg Route: IVP; Site: right forearm; rr5 23:24 Follow up: Response: No adverse reaction rr5 22:21 Drug: GI Cocktail without - (Maalox Suspension 30 ml, Lidocaine Liquid 2 % 15 rr5 ml) Route: PO; 23:24 Follow up: Response: No adverse reaction; Pain is decreased rr5 Disposition: 03/13 01:07 Co-signature as Attending Physician, Reinier Arreola MD. rn Disposition: 03/12/21 22:59 Discharged to Home. Impression: Gastritis, unspecified. - Condition is Stable. - Discharge Instructions: Gastritis, Adult. - Prescriptions for omeprazole 40 mg Oral capsule,delayed release(DR/EC) - take 1 capsule by ORAL route once daily before a meal; 30 capsule. sucralfate 1 gram Oral tablet - take 1 tablet by ORAL route 4 times per day on an empty stomach 1 hour before meals and at bedtime; 120 tablet. - Medication Reconciliation Form, Thank You Letter, Antibiotic Education, Prescription Opioid Use form. - Follow up: Wily Chacon MD; When: 2 - 3 days; Reason: Recheck today's complaints, Continuance of care, Re-evaluation by your physician. - Problem is new. - Symptoms have improved. Signatures: Dispatcher [employer] EDMS Reinier Arreola MD MD rn Roszak, Josh, PA PA jr8 Vitaly Monroy RN RN rr5 Sona Merino RN RN ca1 Corrections: (The following items were deleted from the chart) 03/12 23:25 22:59 03/12/2021 22:59 Discharged to Home. Impression: Gastritis, unspecified. rr5 Condition is Stable. Forms are Medication Reconciliation Form, Thank You Letter, Antibiotic Education, Prescription Opioid Use. Follow up: Wily Chacon; When: 2 - 3 days; Reason: Recheck today's complaints, Continuance of care, Re-evaluation by your physician. Problem is new. Symptoms have improved. jr8
[2021-03-12 23:37] VITALS: TEMP 98.2
[2021-03-12 23:40] VITALS: O2SAT 99
[2021-03-12 23:41] VITALS: BP 147/99
== END 2021-03-12 23:25 | disposition home or self-care (01) ==
LOC: ER 19:49
DX: K29.70 Gastritis, unspecified, without bleeding (principal); K21.9 Gastro-esophageal reflux disease without esophagitis
CPT/HCPCS: 85025; 80048; 36415; 81025; 80076; 81003; 83690; 96374; 99284; J2405

== ENCOUNTER 2021-06-20 12:24 | Emergency (ER) | payer OTHER ==
--- NOTE | 2021-06-20 13:03 | ER ---
Nurse's Notes [facility] Name: Selena Penn Age: 36 yrs Sex: Female : 1985 Arrival Date: 06/20/2021 Time: 12:26 Bed Waiting Private MD: Diagnosis: Presentation: 06/20 13:02 Note Pt states, "I got an appointment. I am just going, I know y'all are busy and I ca1 don't want to waste your time". ED Course: 12:26 Patient arrived in ED. rg4 Administered Medications: No medications were administered Outcome: 13:03 Patient left the ED. ca1 Signatures: Zakia Galan rg4 Sona Merino RN RN ca1
== END 2021-06-20 13:03 | disposition left against medical advice (07) ==
LOC: ER 12:24
DX: Z02.9 Encounter for administrative examinations, unspecified (principal)

== ENCOUNTER 2021-09-17 19:30 | Emergency (ER) | payer OTHER ==
--- NOTE | 2021-09-17 21:01 | RAD REPORT ---
EXAM DESCRIPTION: RAD - Chest Single View - 09/17/2021 8:50 pm CLINICAL HISTORY: COUGH Chest pain. COMPARISON: No comparisons FINDINGS: Portable technique limits examination quality. Prominent interstitial lung markings are present which may represent a viral infection. The heart is normal in size. No displaced fractures.
[2021-09-17 22:18] LABS: SARS-COV-2 RT PCR NEGATIVE (NEGATIVE)
--- NOTE | 2021-09-17 22:26 | ER ---
Nurse's Notes [facility] Name: Selena Penn Age: 36 yrs Sex: Female : 1985 Arrival Date: 09/17/2021 Time: 19:35 Bed 9 Private MD: Diagnosis: Allergic rhinitis, unspecified Presentation: 09/17 19:56 Chief complaint: Patient states: I have been coughing up green sputum \T\ my throat is ld1 sore for four days. My muscles are sore from coughing so much. Denies SOB or Chest pain. Coronavirus screen: Client presents with at least one sign or symptom that may indicate coronavirus-19. Coronavirus screen: Client presents with at least one sign or symptom that may indicate coronavirus-19. Standard/surgical mask placed on the client. Ebola Screen: No symptoms or risks identified at this time. Initial Sepsis Screen: Does the patient meet any 2 criteria? No. Patient's initial sepsis screen is negative. Does the patient have a suspected source of infection? No. Patient's initial sepsis screen is negative. Risk Assessment: Do you want to hurt yourself or someone else? Patient reports no desire to harm self or others. Onset of symptoms was September 17, 2021. 19:56 Method Of Arrival: Ambulatory ld1 19:56 Acuity: SAMSON 4 ld1 Triage Assessment: 19:59 General: Appears in no apparent distress. comfortable, Behavior is calm, cooperative, ld1 appropriate for age. Pain: Denies pain. Neuro: Level of Consciousness is awake, alert, obeys commands, Oriented to person, place, time, situation. Cardiovascular: Capillary refill < 3 seconds Patient's skin is warm and dry. Cardiovascular:. Respiratory: Reports cough that is productive, Airway is patent Respiratory effort is even, unlabored, Respiratory pattern is regular, symmetrical, Breath sounds are clear bilaterally. GI: Abdomen is round non-distended. Musculoskeletal:. 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 Patient/guardian denies using alcohol. Screenin:15 Abuse screen: Denies threats or abuse. Nutritional screening: No deficits noted. ja3 Tuberculosis screening: No symptoms or risk factors identified. Fall Risk None identified. Assessment: 21:13 General: Appears in no apparent distress. Behavior is calm, cooperative, appropriate ja3 for age. Pain: Complains of pain in throat Pain does not radiate. Pain currently is 3 out of 10 on a pain scale. Cardiovascular: Denies chest pain, shortness of breath. Respiratory: Reports cough that is productive, Respiratory effort is even, unlabored, Respiratory pattern is regular. GI: No signs and/or symptoms were reported involving the gastrointestinal system. : No signs and/or symptoms were reported regarding the genitourinary system. EENT: Reports pain in throat hoarseness of voice. 21:18 Reassessment: No changes from previously documented assessment. Patient is alert, ja3 oriented x 3, equal unlabored respirations, skin warm/dry/pink. 22:48 Reassessment: Provider notified on patient high blood pressure. Patient instructed to fu go her PCP. Vital Signs: 19:56 BP 171 / 101; Pulse 107; Resp 18; Temp 98.7(TE); Pulse Ox 98% on R/A; Weight 97.52 kg; ld1 Height 5 ft. 0 in. (152.40 cm); Pain 0/10; 22:35 BP 176 / 96; Pulse 72; Resp 19; Temp 98.4(O); Pulse Ox 99% on R/A; Pain 0/10; fu 19:56 Body Mass Index 41.99 (97.52 kg, 152.40 cm) ld1 ED Course: 19:35 Patient arrived in ED. ja2 19:59 Triage completed. ld1 19:59 Arm band placed on right wrist. ld1 20:19 Dara Llamas FNP-C is PHCP. kb 20:19 Parrish Perkins MD is Attending Physician. kb 20:50 Chest Single View XRAY In Process Unspecified. EDMS 21:00 Vicente Gilbert RN is Primary Nurse. ja3 21:15 No provider procedures requiring assistance completed. ja3 21:17 COVID swab sent to lab. Strep swab sent to lab. 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 ja3 22:45 Patient has correct armband on for positive identification. Bed in low position. Call fu light in reach. 22:49 Patient did not have IV access during this emergency room visit. fu Administered Medications: No medications were administered Outcome: 22:25 Discharge ordered by . john 22:49 Discharged to home ambulatory. fu 22:49 Condition: good 22:49 Discharge instructions given to patient, Instructed on discharge instructions, follow up and referral plans. Demonstrated understanding of instructions, follow-up care, Prescriptions given X 0 22:50 Patient left the ED. fu Signatures: Dispatcher [employer] EDMS Dara Llamas, WEI-[place] CARVAJAL-Josué Metcalf RN RN Angela Keenan RN RN ld1 Fabiola Gonzalez ja2 Vicente Gilbert RN RN ja3 Corrections: (The following items were deleted from the chart) 21:17 21:13 EENT: Reports pain in throat ja3 ja3
--- NOTE | 2021-09-17 22:26 | EDPHYS ---
Physician Documentation [facility] Name: Selena Penn Age: 36 yrs Sex: Female : 1985 Arrival Date: 09/17/2021 Time: 19:35 Bed 9 Private MD: ED Physician Parrish Perkins HPI: 09/17 22:24 This 36 yrs old Female presents to ER via Ambulatory with complaints of kb Cough, Congestion, Sore Throat. 22:24 The patient or guardian reports cough, that is intermittent, described as moderate, kb hoarse voice. Onset: The symptoms/episode began/occurred 1 week(s) ago. Severity of symptoms: At their worst the symptoms were moderate, in the emergency department the symptoms are unchanged. Modifying factors: The symptoms are alleviated by nothing, the symptoms are aggravated by nothing. Associated signs and symptoms: Pertinent positives: rhinorrhea, sore throat, Pertinent negatives: chest pain, diarrhea, ear ache, fever, nausea, vomiting. The patient has not experienced similar symptoms in the past. The patient has not recently seen a physician. Pt reports sore throat, cough and congestion for a week. Today was coughing up green mucous so she came to get evaluated. 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 Patient/guardian denies using alcohol. ROS: 22:24 Constitutional: Negative for fever, chills, and weight loss. kb 22:24 ENT: Positive for rhinorrhea, sinus congestion, sore throat. 22:24 Respiratory: Positive for cough, Negative for dyspnea on exertion, hemoptysis, orthopnea, pleurisy, shortness of breath, sputum production, wheezing. 22:24 All other systems are negative. Exam: 22:24 Constitutional: This is a well developed, well nourished patient who is awake, alert, kb and in no acute distress. Head/Face: Normocephalic, atraumatic. ENT: Moist Mucous membranes Cardiovascular: Regular rate and rhythm with a normal S1 and S2. No gallops, murmurs, or rubs. No pulse deficits. Respiratory: Respirations even and unlabored. No increased work of breathing, no retractions or nasal flaring. Skin: Warm, dry with normal turgor. Normal color. MS/ Extremity: Pulses equal, no cyanosis. Neurovascular intact. Full, normal range of motion. Neuro: Awake and alert, GCS 15, oriented to person, place, time, and situation. Moves all extremities. Normal gait. Psych: Awake, alert, with orientation to person, place and time. Behavior, mood, and affect are within normal limits. Vital Signs: 19:56 BP 171 / 101; Pulse 107; Resp 18; Temp 98.7(TE); Pulse Ox 98% on R/A; Weight 97.52 kg; ld1 Height 5 ft. 0 in. (152.40 cm); Pain 0/10; 22:35 BP 176 / 96; Pulse 72; Resp 19; Temp 98.4(O); Pulse Ox 99% on R/A; Pain 0/10; fu 19:56 Body Mass Index 41.99 (97.52 kg, 152.40 cm) ld1 MDM: 20:27 Patient medically screened. kb 22:23 Data reviewed: vital signs, nurses notes. Data interpreted: Pulse oximetry: on room air kb is 98 %. Interpretation: normal. Counseling: I had a detailed discussion with the patient and/or guardian regarding: the historical points, exam findings, and any diagnostic results supporting the discharge/admit diagnosis, lab results, radiology results, the need for outpatient follow up, a family practitioner, to return to the emergency department if symptoms worsen or persist or if there are any questions or concerns that arise at home. 22:46 ED course: Pt asymptomatic of bp. . kb 09/17 20:19 Order name: Strep; Complete Time: 22:02 kb 09/17 20:19 Order name: Chest Single View XRAY; Complete Time: 21:05 kb 09/17 21:15 Order name: COVID-19/FLU A+B; Complete Time: 22:19 EDMS 09/17 22:00 Order name: Throat Culture EDMS Administered Medications: No medications were administered Disposition: 23:23 Co-signature as Attending Physician, Parrish Perkins MD. [email or web address] Disposition Summary: 09/17/21 22:25 Discharge Ordered Location: Home kb Condition: Stable kb Diagnosis - Allergic rhinitis, unspecified kb Followup: kb - With: Emergency Department - When: As needed - Reason: Worsening of condition Followup: kb - With: Private Physician - When: 2 - 3 days - Reason: Recheck today's complaints, Continuance of care, Re-evaluation by your physician Discharge Instructions: - Discharge Summary Sheet kb - Allergic Rhinitis, Adult, [id number] kb Forms: - Medication Reconciliation Form kb - Thank You Letter kb - Antibiotic Education kb - Prescription Opioid Use kb Signatures: Dispatcher [employer] EDMS Dara Llamas, MERCHANDISE STOCKER-C MERCHANDISE STOCKER-Parrish Marie MD MD [email or web address] Angela Patrick RN RN ld1 Corrections: (The following items were deleted from the chart) 21:15 20:20 SARS-COV-2 RT PCR+MOL.LAB.BRZ ordered. EDMS EDMS 21:16 20:20 Influenza Screen (A \T\ B)+BA.LAB.BRZ ordered. EDMS EDMS
[2021-09-18 00:35] VITALS: BP 176/96; TEMP 98.4; O2SAT 99
== END 2021-09-17 22:50 | disposition home or self-care (01) ==
LOC: ER 19:30
DX: J30.9 Allergic rhinitis, unspecified (principal); Z91.013 Allergy to seafood; Z91.040 Latex allergy status; Z91.048 Other nonmedicinal substance allergy status
CPT/HCPCS: 87070; 87081; 0240U; 71045; 99283

== ENCOUNTER 2021-10-30 19:58 | Emergency (ER) | payer OTHER ==
[2021-10-30 21:47] LABS: SARS-COV-2 RT PCR NEGATIVE (NEGATIVE)
--- NOTE | 2021-10-30 21:59 | ER ---
Nurse's Notes [facility] Name: Selena Penn Age: 36 yrs Sex: Female : 1985 Arrival Date: 10/30/2021 Time: 20:03 Bed 19 Private MD: Diagnosis: Acute pharyngitis, unspecified-Bacterial Presentation: 10/30 20:12 Chief complaint: Patient states: body aches, sore throat since yesterday. Coronavirus [facility] screen: Vaccine status: Patient reports being unvaccinated. Client denies travel out of the [place] in the last 14 days. Ebola Screen: Patient negative for fever greater than or equal to 101.5 degrees Fahrenheit, and additional compatible Ebola Virus Disease symptoms Patient denies exposure to infectious person. Patient denies travel to an Ebola-affected area in the 21 days before illness onset. Initial Sepsis Screen: Does the patient meet any 2 criteria? No. Patient's initial sepsis screen is negative. Does the patient have a suspected source of infection? No. Patient's initial sepsis screen is negative. Risk Assessment: Do you want to hurt yourself or someone else? Patient reports no desire to harm self or others. Onset of symptoms was October 29, 2021. 20:12 Method Of Arrival: Ambulatory [facility] 20:12 Acuity: SAMSON 4 5 Triage Assessment: 20:17 General: Appears in no apparent distress. uncomfortable, well developed, well jh5 nourished, Behavior is calm, cooperative, appropriate for age. Pain: Complains of pain in head. EENT: Reports nasal congestion nasal discharge pain in throat. Historical: - Allergies: 20:17 Latex, Natural Rubber (Hives); 5 20:17 SHELLFISH (Anaphylaxis); jh5 - PMHx: 20:17 ectopic ; Gastric Reflux; Migraines; sciatica; UTI; 5 - PSHx: 20:17 section; 5 - Immunization history:: Adult Immunizations up to date. - Social history:: Smoking status: Patient denies any tobacco usage or history of. Vital Signs: 20:12 BP 149 / 110; Pulse 113; Resp 16; Temp 98.7; Pulse Ox 100% ; Weight 90.72 kg; Height 5 5 ft. 0 in. (152.40 cm); 20:12 Body Mass Index 39.06 (90.72 kg, 152.40 cm) 5 ED Course: 20:03 Patient arrived in ED. ja2 20:17 Triage completed. jh5 21:29 Alejandro Stover PA is PHCP. jr8 21:29 Tenzin Isaacs MD is Attending Physician. jr8 22:15 Angela Patrick, RN is Primary Nurse. ld1 22:15 No provider procedures requiring assistance completed. Patient did not have IV access ld1 during this emergency room visit. Administered Medications: No medications were administered Outcome: 21:58 Discharge ordered by . jr8 22:15 Discharged to home ambulatory. ld1 22:15 Condition: stable 22:15 Discharge instructions given to patient, Instructed on discharge instructions, follow up and referral plans. medication usage, Demonstrated understanding of instructions, follow-up care, medications, Prescriptions given X 1. 22:16 Patient left the ED. ld1 Signatures: Alejandro Stover PA PA 8 Angela Patrick, RN RN ld1 Fabiola Gonzalez 2 Fabiola Wheatley, RN RN 5
--- NOTE | 2021-10-30 21:59 | EDPHYS ---
Physician Documentation [facility] Name: Selena Penn Age: 36 yrs Sex: Female : 1985 Arrival Date: 10/30/2021 Time: 20:03 Bed 19 Private MD: ED Physician Tenzin Isaacs HPI: 10/30 21:55 This 36 yrs old Female presents to ER via Ambulatory with complaints of Sore Throat, jr8 Fever, Cough, BODY ACHES. 21:55 Severity of symptoms: At their worst the symptoms were mild, in the emergency jr8 department the symptoms are unchanged. The patient has not experienced similar symptoms in the past. The patient has not recently seen a physician. 36-year-old female presents with headache sore throat and body aches onset yesterday. Patient denies chest pain or shortness of breath.. Historical: - Allergies: 20:17 Latex, Natural Rubber (Hives); 5 20:17 SHELLFISH (Anaphylaxis); 5 - PMHx: 20:17 ectopic ; Gastric Reflux; Migraines; sciatica; UTI; 5 - PSHx: 20:17 section; 5 - Immunization history:: Adult Immunizations up to date. - Social history:: Smoking status: Patient denies any tobacco usage or history of. ROS: 21:55 Eyes: Negative for injury, pain, redness, and discharge, Neck: Negative for injury, jr8 pain, and swelling, Cardiovascular: Negative for chest pain, palpitations, and edema, Respiratory: Negative for shortness of breath, cough, wheezing, and pleuritic chest pain, Abdomen/GI: Negative for abdominal pain, nausea, vomiting, diarrhea, and constipation, Back: Negative for injury and pain, MS/Extremity: Negative for injury and deformity, Skin: Negative for injury, rash, and discoloration, Neuro: Negative for weakness, numbness, tingling, and seizure. Positive for headache 21:55 Constitutional: Positive for fever. 21:55 ENT: Positive for sore throat. Exam: 21:55 Eyes: Pupils equal round and reactive to light, extra-ocular motions intact. Lids and jr8 lashes normal. Conjunctiva and sclera are non-icteric and not injected. Cornea within normal limits. Periorbital areas with no swelling, redness, or edema. 21:55 Cardiovascular: Regular rate and rhythm with a normal S1 and S2. No gallops, murmurs, or rubs. Normal PMI, no JVD. No pulse deficits. Respiratory: Lungs have equal breath sounds bilaterally, clear to auscultation and percussion. No rales, rhonchi or wheezes noted. No increased work of breathing, no retractions or nasal flaring. Abdomen/GI: Soft, non-tender, with normal bowel sounds. No distension or tympany. No guarding or rebound. No evidence of tenderness throughout. Skin: Warm, dry with normal turgor. Normal color with no rashes, no lesions, and no evidence of cellulitis. MS/ Extremity: Pulses equal, no cyanosis. Neurovascular intact. Full, normal range of motion. Neuro: Awake and alert, GCS 15, oriented to person, place, time, and situation. Cranial nerves II-XII grossly intact. Motor strength 5/5 in all extremities. Sensory grossly intact. 21:55 ENT: Exam is negative for earache, ear discharge, TM abnormalities, nasal discharge, Posterior pharynx: Airway: patent, Tonsils: with erythema, with exudate, no ulcerations, Uvula: midline, non-edematous, no erythema, swelling, is not appreciated, erythema, that is mild. 21:55 Neck: External neck: is normal, Thyroid: appears normal, Trachea: is midline with no obvious abnormalities, ROM/movement: is normal, Lymph nodes: lymphadenopathy is appreciated, anterior cervical nodes. Vital Signs: 20:12 BP 149 / 110; Pulse 113; Resp 16; Temp 98.7; Pulse Ox 100% ; Weight 90.72 kg; Height 5 5 ft. 0 in. (152.40 cm); 20:12 Body Mass Index 39.06 (90.72 kg, 152.40 cm) [facility] MDM: 21:29 Patient medically screened. [facility] 21:55 Data reviewed: vital signs, nurses notes, lab test result(s). Data interpreted: Pulse [facility] oximetry: on room air is 100 %. Interpretation: normal. Counseling: I had a detailed discussion with the patient and/or guardian regarding: the historical points, exam findings, and any diagnostic results supporting the discharge/admit diagnosis, lab results, the need for outpatient follow up, a family practitioner, to return to the emergency department if symptoms worsen or persist or if there are any questions or concerns that arise at home. 10/30 20:25 Order name: Strep; Complete Time: 21:55 jr8 10/30 20:26 Order name: Group A Streptococcus Rapid Sc; Complete Time: 21:58 EDMS 10/30 21:57 Order name: Throat Culture EDMS Administered Medications: No medications were administered Disposition: 10/31 19:43 Co-signature as Attending Physician, Tenzin Isaacs MD I agree with the assessment and sp3 plan of care. Disposition Summary: 10/30/21 21:58 Discharge Ordered Location: Home jr8 Problem: new jr8 Symptoms: have improved jr8 Condition: Stable jr8 Diagnosis - Acute pharyngitis, unspecified - Bacterial jr8 Followup: jr8 - With: Private Physician - When: 1 week - Reason: Recheck today's complaints, Continuance of care, Re-evaluation by your physician Discharge Instructions: - Discharge Summary Sheet jr8 - Pharyngitis jr8 Forms: - Medication Reconciliation Form jr8 - Thank You Letter jr8 - Antibiotic Education jr8 - Prescription Opioid Use jr8 Prescriptions: - Augmentin 875-125 mg Oral Tablet - take 1 tablet by ORAL route every 12 hours for 10 days; 20 tablet; Refills: 0, jr8 Product Selection Permitted Signatures: Dispatcher [employer] EDMS Alejandro Stover PA PA jr8 Tenzin Isaacs MD MD sp3 Fabiola Wheatley, RN RN jh5
[2021-10-30 22:28] VITALS: BP 149/110; TEMP 98.7; O2SAT 100
== END 2021-10-30 22:16 | disposition home or self-care (01) ==
LOC: ER 19:58
DX: J02.9 Acute pharyngitis, unspecified (principal); N39.0 Urinary tract infection, site not specified; K21.9 Gastro-esophageal reflux disease without esophagitis; G43.909 Migraine, unspecified, not intractable, without status migrainosus; M54.30 Sciatica, unspecified side
CPT/HCPCS: 87070; 87081; 0240U; 99282

== ENCOUNTER 2022-10-07 19:23 | Emergency (ER) | payer OTHER, SELFPAY ==
--- OUTSIDE RECORDS SUMMARY | 2022-10-07 19:27 | XMS REPORT | Continuity of Care Document ---
:1985 Author Organization [facility] t Address [address] [place] [address] Care Team Providers Name Role Phone Magy Hendrickson MD Primary Care Physician Magy Hendrickson Attending Clinician Unavailable LYNDA BONE Attending Clinician Unavailable Lynda Bone DO Attending Clinician Doctor Unassigned, [place] Attending Clinician Unavailable HALEIGH STOKES Attending Clinician Unavailable Haleigh Kiser Attending Clinician Jovana Rogers Attending Clinician Unavailable ANIBAL PARSONS Attending Clinician Unavailable Anibal Aponte Attending Clinician KHURRAM RED Admitting Clinician Unavailable Payers Payer Name Policy Type Policy Number Effective Date Expiration Date S derek LOPEZ FROM [id number] 2021 [facility][NOTE 3] 00:00:00 Problems Condition Condition Condition Status Onset Resolution Last Treating Co mments Source Name Details Category Date Date Treatment Clinician Date No known No known Disease Unive rs active active ity of problems problems [facility] [id number] Migraine Problem Comm on without Spirit aura and - [facility] migrainosu Medica l s, not Center intractabl e [id number] Essential Problem Comm on (primary) Spirit hypertensi - [facility] on [facility] [id number] Mild major Problem Com mon depression Spirit - [facility] [id number] Mixed Problem Common hyperlipid Spirit emia - [facility] [id number] Body mass Problem Com mon index Spirit [BMI] - [facility] 40.0-44.9, [facility] [id number] Morbid Problem Commo n 9104 (severe) [facility] obesity - [facility] due to [facility] Allergies, Adverse Reactions, Alerts Allergy Allergy Status Severity Reaction(s) Onset Inactive Treating Comm ents Source Name Type Date Date Clinician LATEX DRUG Active Rash Univers INGREDI - ity of 00:00: [place] [facility] SHELLFIS DRUG Active SOB Univers H INGREDI 05-22 ity of DERIVED 00:00: [place] [facility] Latex Propensi Active Rash Univers ty to 707 ity of adverse 00:00: [place] reaction [facility] Shellfis Propensi Active Shortness of Univers h ty to Breath 05-22 ity of Derived adverse 00:00: [place] reaction 00 [facility] Shellfis Shellfis Active Unknown Commo n h h Spirit - [facility] Latex Latex Active Unknown Common [facility] NO KNOWN Drug Active Univers ALLERGIE Class ity of [facility] Social History Social Habit Start Date Stop Date Quantity Comments Source History of Tobacco Common [facility] - [facility] Use [facility] Exposure to 2022-06-25 2022-07-05 Not sure [facility] SARS-CoV-2 (event) 00:00:00 20:02:00 Medica l Branch Sex Assigned At [birth year] [facility] Medical 00:00:00 00:00:00 Center Smoking Status Start Date Stop Date Source Tobacco smoking consumption [facility] Never Smoker Common [facility] Medications Ordered Filled Start Stop Current Ordering Indication Dosage Frequency Signature Comments Components Source Medication Medication Date Date Medication? Clinician (SIG) Name Name diazePAM 5mg 5 mg, Univers (VALIUM) 07-06 Oral, ity of tablet 5 mg 01:15[place] 01[place]12 [place] On Medical Sat Branch 07/05/22 at 2014, DARIAN dexamethaso 2021- No 10mg 10 mg, Uni vers ne sod phos 07-06 Oral, ity of PF 01:15: 01:11 ONCE, 1 [place] injection 00 :00 dose, On Medica l 10 mg Sat Branch 07/05/22 at 2014, 1 mL HYDROcodone 2021- No 1{tbl} 1 tablet, Univers -acetaminop 07-06 Oral, ity of hen (NORCO 01:15: 01:12 ONCE, 1 [place] 5) 5-325 mg 00 :00 dose, On Medi mike tablet 1 Sat Branch tablet 07/05/22 at 2014, DARIAN Gabapentin Gabapentin 2021-0 No 1{capsu BID Gabapentin 100 MG 100 MG 06-05 le} 100 MG 00:00: 00 Gabapentin Gabapentin 2021-0 No 1{capsu BID Gabapentin 100 MG 100 MG 06-05 le} 100 MG 00:00: 00 Gabapentin Gabapentin 2021-0 No 1{capsu BID Gabapentin 100 MG 100 MG 06-05 le} 100 MG 00:00: 00 Gabapentin Gabapentin 2021-0 No 1{capsu BID Gabapentin 100 MG 100 MG 06-05 le} 100 MG 00:00: 00 Methocarbam Methocarbam 2021- No 1{table Methocarba ol 500 MG ol 500 MG 06-05 t} mol 500 MG 00:00: 00:00 00 :00 diazePAM 2021-0 2021- No 5mg 5 mg, Univers (VALIUM) 05-22 Oral, ity of tablet 5 mg 23:45: 00:03 [place] dose, On Medical Naomi 05/22/22 Branch at 1845, DARIAN ketorolac 0 2021- No 30mg 30 mg, Unive rs (TORADOL) 05-22- Intramuscu ity of injection 23:45: 00:05 lar, ONCE, [place] 30 mg 00 :00 1 dose, On Medical Naomi 05/22/22 Branch at 1845, DARIAN naproxen 2021-0 Yes [id number] 500mg Take 1 U nivers 500 mg 05-22 tablet by ity of tablet 00:00: mouth 2 [place] 00 (two) Medical times Branch daily with meals. methocarbam 2022-0 Yes [id number] 500mg Take 1 Univers oL 500 mg 7-07 tablet by ity o f tablet 00:00: mouth (four) Medical times Branch daily as needed (muscle pain). naproxen 2-0 Yes [id number] 500mg Take 1 U nivers 500 mg 7-07 tablet by ity of tablet 00:00: mouth (two) Medical times Branch daily with meals. methocarbam 2-0 Yes [id number] 500mg Take 1 Univers oL 500 mg 7-07 tablet by ity o f tablet 00:00: mouth (four) Medical times Branch daily as needed (muscle pain). naproxen 2021-0 Yes [id number] 500mg Take 1 U nivers 500 mg 7-07 tablet by ity of tablet 00:00: mouth (two) Medical times Branch daily with meals. methocarbam 2021-0 Yes [id number] 500mg Take 1 Univers oL 500 mg 7-07 tablet by ity o f tablet 00:00: mouth (four) Medical times Branch daily as needed (muscle pain). traMADoL 50 2021-0 2021- No [id number] 50mg Take 1 Uni vers mg tablet 05-22-15 tablet by ity of 00:00: 04:59 mouth [place] 00 :00 every 6 Medical (six) Branch hours as needed for Pain (scale 7-10) for up to 7 days. Indication s: acute pain predniSONE 2-0 2- No [id number] 20mg Take 1 Univers 20 mg 05-22-12 tablet by ity of tablet 00:00: 04:59 mouth 2 [place] 00 :00 (two) Medical times Branch daily for 4 days. Ondansetron Ondansetron 2021-0 No 1{table Ondansetro HCl 4 MG HCl 4 MG 5-25 t} n HCl 4 MG 00:00: 00 Ondansetron Ondansetron 2021-0 No 1{table Ondansetro HCl 4 MG HCl 4 MG 5-25 t} n HCl 4 MG 00:00: 00 Ondansetron Ondansetron 2021-0 No 1{table Ondansetro HCl 4 MG HCl 4 MG 5-25 t} n HCl 4 MG 00:00: 00 Ondansetron Ondansetron 2-0 No 1{table Ondansetro HCl 4 MG HCl 4 MG 5-25 t} n HCl 4 MG 00:00: 00 Ondansetron Ondansetron 2-0 No 1{table Ondansetro HCl 4 MG HCl 4 MG 5-25 t} n HCl 4 MG 00:00: 00 Ondansetron Ondansetron 2-0 No 1{table Ondansetro HCl 4 MG HCl 4 MG 5-25 t} n HCl 4 MG 00:00: 00 Ondansetron Ondansetron 2-0 No 1{table Ondansetro HCl 4 MG HCl 4 MG 5-25 t} n HCl 4 MG 00:00: 00 DULoxetine DULoxetine 2-0 No 1{capsu QD DULoxetine HCl 40 MG HCl 40 MG 4-27 le} HCl 40 MG 00:00: 00 SUMAtriptan SUMAtriptan 2-0 No BID SUMAtripta Succinate Succinate 4-04 n 50 MG 50 MG 00:00: Succinate 00 50 MG SUMAtriptan SUMAtriptan 2-0 No BID SUMAtripta Succinate Succinate 4-04 n 50 MG 50 MG 00:00: Succinate 00 50 MG SUMAtriptan SUMAtriptan 2-0 No BID SUMAtripta Succinate Succinate 4-04 n 50 MG 50 MG 00:00: Succinate 00 50 MG SUMAtriptan SUMAtriptan 2-0 No BID SUMAtripta Succinate Succinate 4-04 n 50 MG 50 MG 00:00: Succinate 00 50 MG Lisinopril Lisinopril 2-0 No 1{table QD Lisinopril 5 MG 5 MG 4-04 t} 5 MG 00:00: 00 SUMAtriptan SUMAtriptan 2-0 No BID SUMAtripta Succinate Succinate 4-04 n 50 MG 50 MG 00:00: Succinate 00 50 MG Lisinopril Lisinopril 2-0 No 1{table QD Lisinopril 5 MG 5 MG 4-04 t} 5 MG 00:00: 00 SUMAtriptan SUMAtriptan 2-0 No BID SUMAtripta Succinate Succinate 4-04 n 50 MG 50 MG 00:00: Succinate 00 50 MG SUMAtriptan SUMAtriptan No BID SUMAtripta Succinate Succinate 4-04 n 50 MG 50 MG 00:00: Succinate 00 50 MG SUMAtriptan SUMAtriptan 0 No BID SUMAtripta Succinate Succinate 4-04 n 50 MG 50 MG 00:00: Succinate 00 50 MG SUMAtriptan SUMAtriptan 0 No BID SUMAtripta Succinate Succinate 4-04 n 50 MG 50 MG 00:00: Succinate 00 50 MG HYDROcodone 2021- No 1{tbl} 1 tablet, Univers -acetaminop 12-08 Oral, ity of hen (NORCO 23:15: 22:11 ONCE, 1 [place] 5) 5-325 mg 00 :00 dose, On Medi mike tablet 1 Sun Branch tablet 12/08/21 at 1715, DARIAN naproxen No 500mg 500 mg, Univ ers (NAPROSYN) 12-08 Oral, ity of tablet 500 23:15: 22:12 ONCE, 1 [place] mg 00 :00 dose, On Medical Sun Branch 12/08/21 at 1715, Routine traMADoL 50 0 Yes [id number] 50mg Take 1 Univ ers mg tablet 12-08 tablet by ity o f 00:00: mouth [place] 00 every 6 Medical (six) Branch hours as needed for Pain (scale 7-10). Indication s: acute pain naproxen Yes [id number] 500mg Take 1 Univers (NAPROSYN) 12-08 [id number] tablet by it y of 500 mg 00:00: mouth 2 [place] tablet 00 (two) Medical times Branch daily with meals. traMADoL 50 2021-0 Yes [id number] 50mg Take 1 Univ ers mg tablet 12-08 tablet by ity o f 00:00: mouth [place] 00 every 6 Medical (six) Branch hours as needed for Pain (scale 7-10). Indication s: acute pain naproxen 2021-0 Yes [id number] 500mg Take 1 Univers (NAPROSYN) 12-08 [id number] tablet by it y of 500 mg 00:00: mouth 2 [place] tablet 00 (two) Medical times Branch daily with meals. traMADoL 50 2021-0 Yes [id number] 50mg Take 1 Univ ers mg tablet 1-23 tablet by ity o f 00:00: mouth [place] 00 every 6 Medical (six) Branch hours as needed for Pain (scale 7-10). Indication s: acute pain naproxen Yes [id number] 500mg Take 1 Univers (NAPROSYN) 12-08 [id number] tablet by it y of 500 mg 00:00: mouth 2 [place] tablet 00 (two) Medical times Branch daily with meals. traMADoL 50 Yes [id number] 50mg Take 1 Univ ers mg tablet -23 tablet by ity o f 00:00: mouth [place] 00 every 6 Medical (six) Branch hours as needed for Pain (scale 7-10). Indication s: acute pain naproxen Yes [id number] 500mg Take 1 Univers (NAPROSYN) 12-08 [id number] tablet by it y of 500 mg 00:00: mouth 2 [place] tablet 00 (two) Medical times Branch daily with meals. DULoxetine DULoxetine No 1{capsu QD DULoxetine HCl 40 MG HCl 40 MG le} HCl 40 MG Lisinopril Lisinopril No 1{table QD Lisinopril 5 MG 5 MG t} 5 MG Lisinopril Lisinopril No 1{table QD Lisinopril 5 MG 5 MG t} 5 MG DULoxetine DULoxetine No 1{capsu QD DULoxetine HCl 40 MG HCl 40 MG le} HCl 40 MG Methocarbam Methocarbam No 1.5{tab TID Methocarba ol 500 MG ol 500 MG lets} mol 500 MG DULoxetine DULoxetine No 1{capsu QD DULoxetine HCl 40 MG HCl 40 MG le} HCl 40 MG Lisinopril Lisinopril No 1{table QD Lisinopril 5 MG 5 MG t} 5 MG DULoxetine DULoxetine No 1{capsu QD DULoxetine HCl 40 MG HCl 40 MG le} HCl 40 MG Methocarbam Methocarbam No 1.5{tab TID Methocarba ol 500 MG ol 500 MG lets} mol 500 MG Lisinopril Lisinopril No 1{table QD Lisinopril 5 MG 5 MG t} 5 MG DULoxetine DULoxetine No 1{capsu QD DULoxetine HCl 20 MG HCl 20 MG le} HCl 20 MG DULoxetine DULoxetine No 1{capsu QD DULoxetine HCl 40 MG HCl 40 MG le} HCl 40 MG Lisinopril Lisinopril No 1{table QD Lisinopril 5 MG 5 MG t} 5 MG DULoxetine DULoxetine No 1{capsu QD DULoxetine HCl 40 MG HCl 40 MG le} HCl 40 MG Lisinopril Lisinopril No 1{table QD Lisinopril 5 MG 5 MG t} 5 MG DULoxetine DULoxetine No 1{capsu QD DULoxetine HCl 40 MG HCl 40 MG le} HCl 40 MG Lisinopril Lisinopril No 1{table QD Lisinopril 5 MG 5 MG t} 5 MG Vital Signs Vital Name Observation Time Observation Value Comments Source height 2022-07-10 11:20:00 60 [in_i] [facility] weight 2022-07-10 11:20:00 233.6 [lb_av] [facility] temperature 2022-07-10 11:20:00 97.8 [degF] [facility] bmi 2022-07-10 11:20:00 45.62 kg/m2 [facility] oximetry 2022-07-10 11:20:00 99 % [facility] respiratory rate 2022-07-10 11:20:00 17 /min Comm on [facility] blood pressure 2022-07-10 11:20:00 132 mm[Hg] [facility] - systolic [facility] blood pressure 2022-07-10 11:20:00 84 mm[Hg] [facility] - diastolic [facility] Systolic blood 2022-07-06 00:59:00 129 mm[Hg] Univer [facility] Diastolic blood 2022-07-06 00:59:00 83 mm[Hg] Unive [facility] Heart rate 2022-07-06 00:59:00 116 /min [facility] Body temperature 2022-07-06 00:59:[address] Respiratory rate 2022-07-06 00:59:00 16 /min [facility] Body height 2022-07-06 00:59:00 152.4 cm [facility] Body weight 2022-07-06 00:59:00 99.791 kg Universi ty of [facility] BMI 2022-07-06 00:59:00 42.97 kg/m2 Universi ty [facility] Oxygen saturation in 2022-07-06 00:59:00 99 /min University of Arterial blood by [place] [facility] Pulse oximetry Branch height 2022-06-05 09:40:00 60 [in_i] [facility] weight 2022-06-05 09:40:00 227 [lb_av] [facility] temperature 2022-06-05 09:40:00 98.5 [degF] [facility] bmi 2022-06-05 09:40:00 44.33 kg/m2 [facility] oximetry 2022-06-05 09:40:00 98 % [facility] respiratory rate 2022-06-05 09:40:00 17 /min Comm on [facility] blood pressure 2022-06-05 09:40:00 134 mm[Hg] [facility] - systolic [facility] blood pressure 2022-06-05 09:40:00 76 mm[Hg] [facility] - diastolic [facility] Systolic blood 2022-05-23 00:00:00 142 mm[Hg] Univer [facility] Diastolic blood 2022-05-23 00:00:00 107 mm[Hg] Unive rsity [facility] [place] [facility] Heart rate 2022-05-23 00:00:00 99 /min Universi ty of [facility] Body temperature 2022-05-23 00:00:00 36.56 Neeru Univ ersity [facility] Respiratory rate 2022-05-23 00:00:00 16 /min [facility] Oxygen saturation in 2022-05-23 00:00:00 99 /min University of Arterial blood by [place] [facility] Pulse oximetry Branch Body height 2022-05-22 22:49:00 152.4 cm Universi ty of [facility] Body weight 2022-05-22 22:49:00 99.791 kg [facility] BMI 2022-05-22 22:49:00 42.97 kg/m2 [facility] height 2022-04-09 16:20:00 60 [in_i] Common [facility] weight 2022-04-09 16:20:00 222.8 [lb_av] Common [facility] temperature 2022-04-09 16:20:00 97.9 [degF] Common [facility] bmi 2022-04-09 16:20:00 43.51 kg/m2 Common [facility] oximetry 2022-04-09 16:20:00 98 % Common [facility] respiratory rate 2022-04-09 16:20:00 18 /min Comm on [facility] blood pressure 2022-04-09 16:20:00 136 mm[Hg] Common [facility] - systolic [facility] blood pressure 2022-04-09 16:20:00 84 mm[Hg] Common [facility] - diastolic [facility] height 2022-03-12 14:40:00 60 [in_i] Common [facility] weight 2022-03-12 14:40:00 222.2 [lb_av] [facility] temperature 2022-03-12 14:40:00 97.5 [degF] Common [facility] bmi 2022-03-12 14:40:00 43.39 kg/m2 Common [facility] oximetry 2022-03-12 14:40:00 99 % Common [facility] respiratory rate 2022-03-12 14:40:00 18 /min Comm on [facility] blood pressure 2022-03-12 14:40:00 128 mm[Hg] Common [facility] - systolic [facility] blood pressure 2022-03-12 14:40:00 74 mm[Hg] Common [facility] - diastolic [facility] height 2022-02-17 09:00:00 60 [in_i] [facility] weight 2022-02-17 09:00:00 224.6 [lb_av] [facility] temperature 2022-02-17 09:00:00 98.3 [degF] [facility] bmi 2022-02-17 09:00:00 43.86 kg/m2 [facility] oximetry 2022-02-17 09:00:00 100 % [facility] respiratory rate 2022-02-17 09:00:00 18 /min Comm on [facility] blood pressure 2022-02-17 09:00:00 140 mm[Hg] [facility] systolic [facility] blood pressure 2022-02-17 09:00:00 80 mm[Hg] [facility] diastolic [facility] Systolic blood 2021-12-08 20:05:00 149 mm[Hg] Univer sity [facility] [place] [facility] Diastolic blood 2021-12-08 20:05:00 107 mm[Hg] Unive rsity [facility] [place] [facility] Heart rate 2021-12-08 20:05:00 103 /min [facility] Body temperature 2021-12-08 20:05:00 36.72 Neeru [facility] Respiratory rate 2021-12-08 20:05:00 18 /min [facility] Body weight 2021-12-08 20:05:00 97.523 kg [facility] Oxygen saturation in 2021-12-08 20:05:00 98 /min [facility] Arterial blood by [place] [facility] Pulse oximetry Branch Procedures Procedure Date / Time Performed Performing Clinician [facility] e CONSENT/REFUSAL FOR 2022-07-06 00:52:30 Doctor Unassigned, [facility] AND Name [facility] TREATMENT REFERRAL- 2022-06-05 05:01:00 [facility] Name [facility] POCT TEST 2022-05-23 00:04:00 Haleigh Stokes [facility] XR KNEE 3 VW RIGHT 2021-12-08 20:55:[address] [facility] NOTICE OF PRIVACY 2021-12-08 19:59:53 Doctor Unassigned, No Univ [facility] [place] [facility] Name [facility] CONSENT/REFUSAL FOR 2021-12-08 19:59:39 Doctor Unassigned, No [facility] DIAGNOSIS AND Name [facility] TREATMENT Plan of Care Planned Activity Planned Date Details Comments Source Future Scheduled 2022-07-[address] [facility] Test 00:00:00 (#1) [code = Medical Center INFLUENZA VACCINE (#1)] Future Scheduled 2021-11-[address] [facility] Test 00:00:00 (12+) [code = Medical Center DEPRESSION SCREENING (12+)] Future Scheduled [address] [facility] Test 00:00:00 malignant neoplasm of Medica Center cervix (procedure) [code = 893234356] Future Scheduled 2004 DTAP/TDAP/TD VACCINES [facility] Test 00:00:00 (1 - Tdap) [code = Medical C enter DTAP/TDAP/TD VACCINES (1 - Tdap)] Future Scheduled 2003 HEPATITIS C SCREENING [facility] Test 00:00:00 [code = HEPATITIS C Medical Center SCREENING] Future Scheduled [address] [facility] Test 00:00:00 Counseling and Medical Cente r Screening (12+) [code = Tobacco Cessation Counseling and Screening (12+)] Future Scheduled 1985 COVID-19 VACCINE (#1) [facility] Test 00:00:00 [code = COVID-[address] VACCINE (#1)] Encounters Start End Encounter Admission Attending Care Care Encounter Source Date/Time Date/Time Type Type Clinicians Facility Department ID 2022-07-14 Out[facility] [id number] Common 10:34:02 Magy [facility] 2022-07-[address] [facility] [id number] Common 14:03:03 Magy [facility] 2022-06-03 [facility] [id number] Common 15:09:02 Magy [facility] 2022-02-17 Outpatient Hendrickson, STLMLC STLMLC [id number] Common 08:48:03 Magy [facility] 2022-09-09 2022-09-09 (TEL) STLMLC STLMLC [id number] Co mmon 00:00:00 00:00:00 [facility] 2022-07-10 2022-07-10 OFFICE STLMLC STLMLC [id number] Co mmon 00:00:00 00:00:00 VISIT EST Spir it PT LEVEL 3 [facility] 2022-07-05 2022-07-05 Emergency X [facility] ERT [id number] Univers 19:58:00 21:17:00 LYNDA kramer [facility] 2022-07-05 2022-07-05 Emergency [facility] [id number] Univers 19:58:00 21:17:00 Lynda MCCULLOUGH [id number] ity [facility] [id number] [facility] [id number] [facility] 084 Branch 2022-07-02 2022-07-02 (TEL) STLMLC STLMLC [id number] Co mmon 00:00:00 00:00:00 [facility] 2022-06-05 2022-06-05 OFFICE STLMLC STLMLC [id number] Co mmon 00:00:00 00:00:00 VISIT EST Spir it PT LEVEL 3 [facility] 2022-06-05 2022-06-05 Orders Doctor RAMOS [id number] Univers 00:00:00 00:00:00 Only Unassigned, ОЛЬГА [id number] ity of [facility] [id number] [facility] [id number] [facility] 009 Branch 2022-05-22 2022-05-[address] [facility] ERT [id number] Univers 17:51:00 19:27:00 HALEIGH kramer [facility] 2022-05-22 2022-05-22 Emergency [facility] [id number] Univers 17:51:00 19:27:00 Haleigh Zavala JAMEL [id number] i ty of [place] [id number] [facility] [id number] [place] [address] Branch 2022-04-18 2022-04-18 Telephone Ken [facility] [id number] 00:[facility]00 00:00:00 [facility] 2022-04-16 2022-04-16 (TEL) STLMLC STLMLC [id number] Co mmon 00:00:00 00:00:00 [facility] 2022-04-15 2022-04-15 (TEL) STLMLC STLMLC [id number] Co mmon 00:00:00 00:00:[address] [facility] 2022-04-09 2022-04-09 OFFICE STLMLC STLMLC [id number] Co mmon 00:00:00 00:00:00 VISIT Spirit ESTAB PT - CHI LEVEL 4 [facility] 2022-03-12 2022-03-12 OFFICE STLMLC STLMLC [id number] Co mmon 00:00:00 00:00:00 VISIT Spirit ESTAB PT - CHI LEVEL 4 [facility] 2022-02-17 2022-02-17 OFFICE STLMLC STLMLC [id number] Co mmon 00:00:00 00:00:00 VISIT NEW Spir it PT LEVEL 4 - CHI [facility] 2021-12-08 2021-12-08 [facility] [id number] Univers 14:10:00 16:49:00 ANIBAL ity of [facility] 2021-12-08 2021-12-08 Emergency [facility] [id number] Univers 14:10:00 16:49:00 Anibal Long ANDREEAKENRICK [id number] i ty of [place] [id number] [facility] [id number] [address] Results Test Description Test Time Test Comments Results Result Comments Source POCT TEST 2022-05-23 00:04:00 Test Item Value Reference Range Interpretation Comme nts POCT PREG (test code = 1605) Negative On board controls acceptable with C Line (test code = 3574) Positiv e POCT PREG LOT # (test code = 3575) [id number] POCT PREG TEST DATE (test code = 3576) 09/15/2023 Lab Interpretation (test code = 29207-7) [facility] 11:39:27SPECIMEN NUMBER: [id number] CULTURE, URINE SPECIMEN NUMBER: [id number] SPECIMEN COMMENT: URINE SOURCE: URINE REPORT STATUS: FINAL ISOLATE NUMBER 1: ORGANISM: 01/25/2022 <10,000 CFU/ML YEAST UNLESS OTHERWISE INDICATED, ALL TESTING PERFORMED [facility] [address] [place] [address] [id number] MILKING SYSTEM INSTALLER: VICTORINO SPIVEY M.D. CLIA NUMBER [id number] [place] [id number]
--- NOTE | 2022-10-07 20:49 | RAD REPORT ---
EXAM DESCRIPTION: US - Abdomen Exam Limited - 10/07/2022 8:34 pm CLINICAL HISTORY: ABD PAIN COMPARISON: No comparisons FINDINGS: The gallbladder demonstrates no gallstones. No pericholecystic fluid or gallbladder wall t hickening. The common bile duct is normal measuring 3 mm. The liver demonstrates increased echogenicity consistent hepatic steatosis . IMPRESSION: Negative for cholelithiasis or acute cholecystitis. Hepatic steatosis .
[2022-10-07 21:05] LABS: Urine Blood 2+ (Negative); Urine Glucose Negative (Negative); Urine Protein Trace (Negative); Urine Specific Gravity 1.025 (1.005-1.030)
[2022-10-07 21:17] LABS: Urine Crystals Unidentified Few /HPF (None Seen); Urine Mucus 1+ /HPF (None Seen)
[2022-10-07 21:24] LABS: Absolute Lymphocytes (CBC) 2.1 K/uL (0.7-4.9); Hematocrit 37.4 % (36.0-45.0); Lymphocytes % 16.3 % (15.3-44.8); MCV 82.5 fL (80-100); RBC Red Blood Cell Count 4.53 M/uL (3.86-4.86)
[2022-10-07 21:31] LABS: Albumin 3.6 g/dL (3.4-5.0); Bilirubin Total 0.9 mg/dL (0.2-1.0); Magnesium 2.1 mg/dL (1.8-2.4); Potassium 3.9 mmol/L (3.5-5.1); Protein, Total 8.5 g/dL (6.4-8.2)
[2022-10-07 22:01] LABS: SARS-COV-2 RT PCR NEGATIVE (NEGATIVE)
--- NOTE | 2022-10-07 22:29 | RAD REPORT ---
EXAM DESCRIPTION: CTAbdomen Pelvis W Contrast - 10/07/2022 10:13 pm CLINICAL HISTORY: upper abdomen pain COMPARISON: No comparisons TECHNIQUE: CT of the abdomen and pelvis was performed. All CT scans are performed using dose optimization technique as appropriate and may include automated exposure control or mA/KV adjustment according to patient size. FINDINGS: Lower chest: No acute abnormality. Liver: Hepatic steatosis . Biliary: No biliary ductal dilatation. Stomach: No significant focal abnormality. Duodenum: No significant focal abnormality. Pancreas: No significant abnormality. Spleen: No significant abnormality. Adrenal: No suspicious lesions. Kidney/ureter: No hydronephrosis. No renal calculi. Retroperitoneum: No retroperitoneal adenopathy. Vascular: No aneurysm. Bowel: Small air-fluid levels in the ascending colon. Mild wall thickening and mesenteric edema invol ving the distal and terminal ileum. No bowel obstruction. No appendicitis.. Peritoneum: No ascites or free air. Tiny fat containing umbilical hernia. Bladder: Grossly unremarkable. Reproductive: No adnexal masses. Bones: No acute fracture. Other: n/a IMPRESSION: Question mild enteritis. No other acute abnormality identified.
[2022-10-07] MEDS ORDERED: KETOROLAC 30 MG/ML INJ ONE (22:55)
[2022-10-07] MEDS ORDERED: DICYCLOMINE HCL 20 MG/2 ML AMP IM ONE (22:56)
[2022-10-07] MEDS ORDERED: NA CHLORIDE 0.9% 1,000 ML ONE (22:56)
[2022-10-07] MEDS ORDERED: Levofloxacin 750mg IV 750 MG/150 ML BAG IV ONE (22:56)
--- NOTE | 2022-10-07 23:36 | ER ---
Nurse's Notes [facility] Name: Selena Penn Age: 37 yrs Sex: Female : 1985 Arrival Date: 10/07/2022 Time: 19:27 Bed 23 Private MD: Diagnosis: Nausea with vomiting, unspecified;Diarrhea, unspecified Presentation: 10/07 19:30 Chief complaint: Patient states: Abdominal pain, nausea, dizziness X 2 days. ld1 Coronavirus screen: At this time, the client does not indicate any symptoms associated with coronavirus-19. Ebola Screen: No symptoms or risks identified at this time. Initial Sepsis Screen: Does the patient meet any 2 criteria? No. Patient's initial sepsis screen is negative. Does the patient have a suspected source of infection? No. Patient's initial sepsis screen is negative. Risk Assessment: Do you want to hurt yourself or someone else? Patient reports no desire to harm self or others. Onset of symptoms was October 07, 2022. 19:30 Method Of Arrival: Ambulatory ld1 19:30 Acuity: SAMSON 3 ld1 Triage Assessment: 19:30 General: Appears in no apparent distress. comfortable, Behavior is calm, cooperative, ld1 appropriate for age. Pain: Complains of pain in abdomen Pain does not radiate. Pain currently is 8 out of 10 on a pain scale. EENT: No signs and/or symptoms were reported regarding the EENT system. Neuro: Level of Consciousness is awake, alert, obeys commands, Oriented to person, place, time, situation. Cardiovascular: Capillary refill < 3 seconds Patient's skin is warm and dry. Respiratory: Airway is patent Respiratory effort is even, unlabored. GI: Abdomen is round non-distended. : No signs and/or symptoms were reported regarding the genitourinary system. Derm: No signs and/or symptoms reported regarding the dermatologic system. Musculoskeletal: No signs and/or symptoms reported regarding the musculoskeletal system. 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 - Social history:: Smoking status: Patient denies any tobacco usage or history of. Patient/guardian denies using alcohol. Screenin:33 Abuse screen: Denies threats or abuse. Denies injuries from another. Nutritional eh3 screening: No deficits noted. Tuberculosis screening: No symptoms or risk factors identified. Fall Risk None identified. Assessment: 19:33 General: Appears in no apparent distress. uncomfortable, Behavior is calm, cooperative, eh3 appropriate for age. Pain: Complains of pain in epigastric area Pain radiates to right upper quadrant and left upper quadrant Pain currently is 8 out of 10 on a pain scale. Quality of pain is described as burning, sharp, Pain began 2-3 days ago. Is continuous, Alleviated by nothing. Aggravated by eating, drinking, Noted to be guarding. Neuro: Level of Consciousness is awake, alert, obeys commands, Oriented to person, place, time, situation. Cardiovascular: Capillary refill < 3 seconds Patient's skin is warm and dry. Respiratory: Airway is patent Respiratory effort is even, unlabored, Respiratory pattern is regular, symmetrical. GI: Abdomen is round non-distended, Bowel sounds present X 4 quads. Abdomen is tender to palpation in right upper quadrant and left upper quadrant Reports upper abdominal pain, diarrhea, intolerance of fluids, intolerance of food, nausea. : No signs and/or symptoms were reported regarding the genitourinary system. EENT: No signs and/or symptoms were reported regarding the EENT system. Derm: No signs and/or symptoms reported regarding the dermatologic system. Musculoskeletal: No signs and/or symptoms reported regarding the musculoskeletal system. Circulation, motion, and sensation intact. Range of motion: intact in all extremities. 20:30 Reassessment: Patient appears in no apparent distress at this time. Patient and/or eh3 family updated on plan of care and expected duration. Pain level reassessed. Patient is alert, oriented x 3, equal unlabored respirations, skin warm/dry/pink. 21:30 Reassessment: Patient appears in no apparent distress at this time. Patient and/or eh3 family updated on plan of care and expected duration. Pain level reassessed. Patient is alert, oriented x 3, equal unlabored respirations, skin warm/dry/pink. 22:30 Reassessment: Patient appears in no apparent distress at this time. Patient and/or 3 family updated on plan of care and expected duration. Pain level reassessed. Patient is alert, oriented x 3, equal unlabored respirations, skin warm/dry/pink. 23:30 Reassessment: Patient appears in no apparent distress at this time. Patient and/or eh3 family updated on plan of care and expected duration. Pain level reassessed. Patient is alert, oriented x 3, equal unlabored respirations, skin warm/dry/pink. Patient states symptoms have improved. Vital Signs: 19:30 BP 112 / 87; Pulse 128; Resp 20; Temp 99.7(O); Pulse Ox 98% on R/A; eh3 20:30 BP 107 / 76; Pulse 115; Resp 18; Pulse Ox 98% on R/A; eh3 21:30 BP 120 / 87; Pulse 111; Resp 18; Pulse Ox 99% on R/A; eh3 22:30 BP 104 / 66; Pulse 114; Resp 18; Pulse Ox 99% on R/A; eh3 23:30 BP 137 / 89; Pulse 102; Resp 14; Pulse Ox 99% on R/A; eh3 ED Course: 19:27 Patient arrived in ED. ag3 19:30 Triage completed. ld1 19:30 Arm band placed on right wrist. ld1 19:31 Sterling Ortiz PA is PHCP. cp 19:31 Sterling Mercado MD is Attending Physician. cp 19:33 Patient has correct armband on for positive identification. Bed in low position. Call eh3 light in reach. Side rails up X2. Pulse ox on. NIBP on. Door closed. Noise minimized. Lights dimmed. Warm blanket given. 19:45 Rosa Maria Cisse, RN is Primary Nurse. eh3 20:35 US Abdomen Limited In Process Unspecified. EDMS 22:15 CT Abd/Pelvis - IV Contrast Only In Process Unspecified. EDMS 23:32 Diet: Patient given water. Tolerated well. eh3 23:34 No provider procedures requiring assistance completed. eh3 23:59 IV discontinued, intact, bleeding controlled, No redness/swelling at site. Pressure eh3 dressing applied. Administered Medications: 20:20 Drug: Zofran (Ondansetron) 4 mg Route: IVP; Site: right antecubital; eh3 21:49 Follow up: Response: Nausea unchanged eh3 20:22 Drug: Pepcid (famotidine) 20 mg Route: IVP; Site: right antecubital; eh3 21:49 Follow up: Response: No adverse reaction eh3 20:24 Drug: NS 0.9% 1000 ml Route: IV; Rate: 1 bolus; Site: right antecubital; eh3 20:24 Drug: morphine 4 mg Route: IVP; Infused Over: 4 mins; Site: right antecubital; eh3 21:49 Follow up: Response: Pain is unchanged, physician notified eh3 23:00 Drug: Dicyclomine 20 mg Route: IM; Site: left ventrogluteal; 3 23:33 Follow up: Response: No adverse reaction eh3 23:00 Drug: Ketorolac 15 mg Route: IVP; Site: right antecubital; eh3 23:33 Follow up: Response: Pain is decreased eh3 23:00 Drug: NS 0.9% 1000 ml Route: IV; Rate: 1 bolus; Site: right antecubital; eh3 10/08 00:22 Follow up: IV Status: IV converted to saline lock; IV Intake: 500ml eh3 Medication: 10/07 23:33 VIS not applicable for this client. eh3 Intake: 10/08 00:22 IV: 500ml; Total: 500ml. eh3 Outcome: 10/07 23:36 Discharge ordered by . brendon 10/08 00:21 Discharged to home ambulatory, with family. eh3 Condition: stable Discharge instructions given to patient, Instructed on discharge instructions, follow up and referral plans. medication usage, Demonstrated understanding of instructions, follow-up care, medications, Prescriptions given X 2. 00:21 Patient left the ED. eh3 Signatures: Dispatcher [employer] EDMS Sterling Ortiz PA PA cp Gomez, Alice 3 Angela Patrick RN RN ld1 Rosa Maria Cisse RN RN eh3 Corrections: (The following items were deleted from the chart) 10/07 19:58 19:30 BP 112 / 87; Pulse 128bpm; Resp 20bpm; Pulse Ox 98% RA; eh3 eh3
--- NOTE | 2022-10-07 23:36 | EDPHYS ---
Physician Documentation [facility] Name: Selena Penn Age: 37 yrs Sex: Female : 1985 Arrival Date: 10/07/2022 Time: 19:27 Bed 23 Private MD: ED Physician Sterling Mercado HPI: 10/07 20:05 This 37 yrs old Female presents to ER via Ambulatory with complaints of Abdominal Pain, cp Nausea, Dizziness. 20:05 The patient presents with abdominal pain in the epigastric area, in the upper abdomen. cp 20:05 Onset: The symptoms/episode began/occurred 2 day(s) ago. cp 20:05 Associated signs and symptoms: Pertinent positives: diarrhea, dizziness, Pertinent cp negatives: blood in stools, constipation, dysuria, fever, headache, vomiting. 20:05 Severity of pain: in the emergency department the pain is unchanged despite home cp interventions. 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 - Social history:: Smoking status: Patient denies any tobacco usage or history of. Patient/guardian denies using alcohol. ROS: 20:10 Constitutional: Positive for poor PO intake, Negative for fever. cp 20:10 Eyes: Negative for injury, pain, redness, and discharge. cp 20:10 ENT: Negative for drainage from ear(s), ear pain, sore throat, difficulty swallowing, difficulty handling secretions. 20:10 Cardiovascular: Negative for chest pain. 20:10 Respiratory: Negative for cough, shortness of breath, wheezing. 20:10 Abdomen/GI: Positive for abdominal pain, nausea, diarrhea, Negative for constipation, black/tarry stool, rectal bleeding. 20:10 Back: Negative for radiated pain. 20:10 Neuro: Positive for dizziness, Negative for altered mental status, headache, weakness. 20:10 All other systems are negative. Exam: 20:15 Constitutional: The patient appears in no acute distress, alert, awake, cp non-diaphoretic, non-toxic, well developed, well nourished, obese, uncomfortable. 20:15 Head/Face: Normocephalic, atraumatic. cp 20:15 Eyes: Periorbital structures: appear normal, Conjunctiva: normal, no exudate, no injection, Sclera: no appreciated abnormality, Lids and lashes: appear normal, bilaterally. 20:15 ENT: External ear(s): are unremarkable, Nose: is normal, Mouth: Lips: moist, Oral mucosa: pink and intact, moist, Posterior pharynx: Airway: no evidence of obstruction, patent, Tonsils: are normal in appearance, erythema, is not appreciated, exudate, is not appreciated. 20:15 Chest/axilla: Inspection: normal. 20:15 Cardiovascular: Rate: tachycardic, Rhythm: regular, Edema: is not appreciated, JVD: is not appreciated. 20:15 Respiratory: the patient does not display signs of respiratory distress, Respirations: normal, no use of accessory muscles, no retractions, labored breathing, is not present, Breath sounds: are clear throughout, no decreased breath sounds, no stridor, no wheezing. 20:15 Abdomen/GI: Inspection: obese Bowel sounds: active, all quadrants, Palpation: soft, in all quadrants, moderate abdominal tenderness, in the epigastric area, right upper quadrant and left upper quadrant, rebound tenderness, is not appreciated, involuntary guarding, is not appreciated. 20:15 Back: pain, is absent, ROM is normal. 20:15 Neuro: Orientation: to person, place \T\ time. Mentation: is normal, Motor: moves all fours, strength is normal, Sensation: is normal. 20:22 ECG was reviewed by the Attending Physician. cp Vital Signs: 19:30 BP 112 / 87; Pulse 128; Resp 20; Temp 99.7(O); Pulse Ox 98% on R/A; eh3 20:30 BP 107 / 76; Pulse 115; Resp 18; Pulse Ox 98% on R/A; eh3 21:30 BP 120 / 87; Pulse 111; Resp 18; Pulse Ox 99% on R/A; eh3 22:30 BP 104 / 66; Pulse 114; Resp 18; Pulse Ox 99% on R/A; eh3 23:30 BP 137 / 89; Pulse 102; Resp 14; Pulse Ox 99% on R/A; eh3 MDM: 19:42 Patient medically screened. omar 20:30 Differential diagnosis: bowel obstruction, cholecystitis, Cholelithiasis, gastritis, cp non-specific abd pain, pancreatitis, Peptic Ulcer Disease, Perf. Duodenal Ulcer, Perf. Gastric Ulcer, Pyelonephritis, Ureterolithiasis, urinary tract infection. 23:35 Data reviewed: vital signs, nurses notes, lab test result(s), EKG, radiologic studies, cp CT scan, ultrasound. 23:35 Test interpretation: by ED physician or midlevel provider: ECG. Counseling: I had a cp detailed discussion with the patient and/or guardian regarding: the historical points, exam findings, and any diagnostic results supporting the discharge/admit diagnosis, lab results, radiology results, to return to the emergency department if symptoms worsen or persist or if there are any questions or concerns that arise at home. Response to treatment: the patient's symptoms have markedly improved after treatment, patient is well hydrated. Pain and nausea improved. Will discharge to home for continued monitoring. Special discussion: Based on the patient's Hx, exam, and Dx evaluation, there is no indication for emergent surgery or inpatient Tx. It is understood by the patient/guardian that if the Sx's persist or worsen they need to return immediately for re-evaluation. 10/07 19:59 Order name: CBC with Diff; Complete Time: 22:38 10/07 22:38 Interpretation: Normal except: WBC 12.70; PLT 450; BRAYDON% 77.5; NEUT A 9.8. 10/07 19:59 Order name: CMP; Complete Time: 22:38 10/07 22:38 Interpretation: Normal except: NA 135; GLUC 112; GFR 84; AST 14; TP 8.5; GLOB 4.9; A/G cp 0.7. 10/07 19:59 Order name: Lipase; Complete Time: 22:38 10/07 19:59 Order name: Urine Microscopic Only; Complete Time: 22:38 cp 10/07 22:38 Interpretation: Normal except: URBC 5-10; SQEPI >50. 10/07 19:59 Order name: COVID-19/FLU A+B; Complete Time: 22:38 10/07 22:38 Interpretation: Reviewed. 10/07 19:59 Order name: Magnesium; Complete Time: 22:38 cp 10/07 19:59 Order name: US Abdomen Limited; Complete Time: 21:06 cp 10/07 22:40 Interpretation: Report reviewed. 10/07 20:35 Order name: CT Abd/Pelvis - IV Contrast Only; Complete Time: 22:38 cp 10/07 23:11 Interpretation: Report reviewed. 10/07 21:06 Order name: Urine Dipstick-Ancillary; Complete Time: 21:06 EDMS 10/07 21:06 Interpretation: Normal except: UBLD 2+; UPROT Trace. 10/07 21:10 Order name: Urine --Ancillary (enter results) bb 10/07 19:59 Order name: IV Saline Lock; Complete Time: 20:57 cp 10/07 19:59 Order name: Labs collected and sent; Complete Time: 20:58 cp 10/07 19:59 Order name: Urine Dipstick-Ancillary (obtain specimen); Complete Time: 21:48 cp 10/07 19:59 Order name: Urine Test (obtain specimen); Complete Time: 21:48 cp 10/07 19:59 Order name: NPO; Complete Time: 20:07 cp 10/07 19:59 Order name: EKG - Nurse/Tech; Complete Time: 20:22 cp 10/07 23:12 Order name: PO challenge; Complete Time: 23:32 cp EC: Rate is 114 beats/min. Rhythm is regular. ID interval is normal. QRS interval is cp normal. QT interval is normal. T waves are Inverted in lead aVR. Interpreted by me. Reviewed by me. Administered Medications: 20:20 Drug: Zofran (Ondansetron) 4 mg Route: IVP; Site: right antecubital; eh3 21:49 Follow up: Response: Nausea unchanged eh3 20:22 Drug: Pepcid (famotidine) 20 mg Route: IVP; Site: right antecubital; eh3 21:49 Follow up: Response: No adverse reaction eh3 20:24 Drug: NS 0.9% 1000 ml Route: IV; Rate: 1 bolus; Site: right antecubital; eh3 20:24 Drug: morphine 4 mg Route: IVP; Infused Over: 4 mins; Site: right antecubital; eh3 21:49 Follow up: Response: Pain is unchanged, physician notified 3 23:00 Drug: Dicyclomine 20 mg Route: IM; Site: left ventrogluteal; 3 23:33 Follow up: Response: No adverse reaction 3 23:00 Drug: Ketorolac 15 mg Route: IVP; Site: right antecubital; 3 23:33 Follow up: Response: Pain is decreased 3 23:00 Drug: NS 0.9% 1000 ml Route: IV; Rate: 1 bolus; Site: right antecubital; [facility] 10/08 00:22 Follow up: IV Status: IV converted to saline lock; IV Intake: 500ml [facility] Disposition Summary: 10/07/22 23:36 Discharge Ordered Location: Home cp Problem: new cp Symptoms: have improved cp Condition: Stable cp Diagnosis - Nausea with vomiting, unspecified cp - Diarrhea, unspecified cp Followup: cp - With: Private Physician - When: 1 - 2 days - Reason: Worsening of condition Discharge Instructions: - Discharge Summary Sheet cp - Diarrhea, Adult cp - Nausea and Vomiting, Adult cp - Viral Gastroenteritis, Adult cp Forms: - Medication Reconciliation Form cp - Thank You Letter cp - Antibiotic Education cp - Prescription Opioid Use cp Prescriptions: - Zofran 4 mg Oral Tablet - take 1 tablet by ORAL route every 12 hours As needed; 20 tablet; Refills: 0, cp Product Selection Permitted - dicyclomine 20 mg Oral Tablet - take 1 tablet by ORAL route 4 times per day; 30 tablet; Refills: 0, Product cp Selection Permitted Signatures: Dispatcher [employer] Sterling Mccarthy MD MD cha Page, Corey, PA PA cp Angela Patrick, RASHAAD RN ld1 Rosa Maria Cisse RN RN eh3
[2022-10-08 00:26] VITALS: TEMP 99.7
[2022-10-08 00:29] VITALS: O2SAT 99
[2022-10-08 00:31] VITALS: BP 137/89
[2022-10-08 00:41] LABS: Urine Specific Gravity/Preg 1.025 (1.005-1.030)
--- NOTE | 2022-10-13 13:01 | EKG ---
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
== END 2022-10-08 00:21 | disposition home or self-care (01) ==
LOC: ER 19:23
DX: R11.2 Nausea with vomiting, unspecified (principal); R19.7 Diarrhea, unspecified; Z20.822 Contact with and (suspected) exposure to COVID-19
CPT/HCPCS: 0240U; 36415; 74177; 76705; 80053; 81003; 81015; 81025; 83690; 83735; 85025; 93005; 96361; 96372; 96374; 96375; 99284; J0500; J7030; Q9967

== ENCOUNTER 2022-10-13 19:08 | Emergency (ER) | payer SELFPAY ==
--- OUTSIDE RECORDS SUMMARY | 2022-10-13 19:13 | XMS REPORT | Continuity of Care Document ---
:1985 Author Organization [facility] t Address [address] [place] [address] [address] [place] [address] Care Team Providers Name Role Phone Magy Hendrickson Primary Care Physician Unavailable Magy Hendrickson Attending Clinician Unavailable LYNDA BONE Attending Clinician Unavailable Lynda Bone DO Attending Clinician Doctor Unassigned, [place] Attending Clinician Unavailable HALEIGH STOKES Attending Clinician Unavailable Haleigh Kiser Attending Clinician Jovana Rogers Attending Clinician Unavailable ANIBAL PARSONS Attending Clinician Unavailable Anibal Aponte Attending Clinician KHURRAM RED Admitting Clinician Unavailable Payers Payer Name Policy Type Policy Number Effective Date Expiration Date S derek LOPEZ FROM [id number] [address] [facility] 00:00:00 Problems Condition Condition Condition Status Onset Resolution Last Treating Co mments Source Name Details Category Date Date Treatment Clinician Date No known No known Disease Unive rs active active ity of problems problems [facility] [id number] Migraine Problem Comm on without Spirit aura and - [facility] without [facility] status Luchi [facility] migrainosu Medica l s, not Center intractabl e [id number] Essential Problem Comm on (primary) Spirit hypertensi - [facility] on [facility] [id number] Mild major Problem Com mon depression Spirit - [facility] [id number] Mixed Problem Common hyperlipid Spirit emia [facility] [id number] Body mass Problem Com mon index [facility] [BMI] - [facility] 40.0-44.9, [facility] [id number] Morbid Problem Commo n 9104 (severe) [facility] obesity - [facility] due to [facility] Allergies, Adverse Reactions, Alerts Allergy Allergy Status Severity Reaction(s) Onset Inactive Treating Comm ents Source Name Type Date Date Clinician LATEX DRUG Active Rash Univers INGREDI 05-22 ity of 00:00: [place] [facility] [place] SHELLFIS DRUG Active SOB Univers H INGREDI 05-22 ity of DERIVED 00:00: Medical [place] Latex Propensi Active Rash Univers ty to 7 ity of adverse 00:00: [place] reaction [facility] Shellfis Propensi Active Shortness of Univers h ty to Breath 05-22 ity of Derived adverse 00:00: [place] reaction 00 [facility] s [place] NO KNOWN Drug Active Univers ALLERGIE Class ity of S [facility] Shellfis Shellfis Active Unknown Commo n h h Spirit [facility] Latex Latex Active Unknown Common [facility] Social History Social Habit Start Date Stop Date Quantity Comments Source History of Tobacco Common [facility] Use [facility] Exposure to 2022-06-25 2022-07-05 Not sure [facility] SARS-CoV-2 (event) 00:00:00 20:02:00 Medica l Branch Sex Assigned At [address] [facility] Medical 00:00:00 00:00:00 Center Smoking Status Start Date Stop Date Source Tobacco smoking consumption Univ [facility] unknown [place] Never Smoker Common [facility] Medications Ordered Filled Start Stop Current Ordering Indication Dosage Frequency Signature Comments Components Source Medication Medication Date Date Medication? Clinician (SIG) Name Name diazePAM 5mg 5 mg, Univers (VALIUM) 07-06 Oral, ity of tablet 5 mg 01:15[place] 01[place]12 [place] On Medical Sat Branch 07/05/22 at 2015, DARIAN dexamethaso 2021- No 10mg 10 mg, Uni vers ne sod phos 07-06 Oral, ity of PF 01:15: 01:11 ONCE, 1 [place] injection 00 :00 dose, On Medica l 10 mg Sat Branch 07/05/22 at 2014, 1 mL HYDROcodone 2021-0 2021- No 1{tbl} 1 tablet, Univers -acetaminop [...] 2021- No 5mg 5 mg, Univers (VALIUM) 05-22- Oral, ity of tablet 5 mg 23:45: 00:03 [place] dose, On Medical Naomi 05/22/22 Branch at 1845, DARIAN ketorolac 2021-0 2021- No 30mg 30 mg, Unive rs (TORADOL) 05-22- Intramuscu ity of injection 23:45: 00:05 lar, ONCE, [place] 30 mg 00 :00 1 dose, On Medical Naomi 05/22/22 Branch at 1845, DARIAN naproxen 2021-0 Yes [id number] 500mg Take 1 U nivers 500 mg 05-22 tablet by ity of tablet 00:00: mouth 2 [place] 00 (two) Medical times Branch daily with meals. methocarbam 2022-0 Yes [id number] 500mg Take 1 Univers oL 500 mg 7-07 tablet by ity o f tablet 00:00: mouth 4 (four) Medical times Branch daily as needed (muscle pain). naproxen 2-0 Yes [id number] 500mg Take 1 U nivers 500 mg 7-07 tablet by ity of tablet 00:00: mouth 2 (two) Medical times Branch daily with meals. methocarbam 2-0 Yes [id number] 500mg Take 1 Univers oL 500 mg 7-07 tablet by ity o f tablet 00:00: mouth 4 (four) Medical times Branch daily as needed (muscle pain). naproxen 2021-0 Yes [id number] 500mg Take 1 U nivers 500 mg 7-07 tablet by ity of tablet 00:00: mouth 2 (two) Medical times Branch daily with meals. methocarbam 2021-0 Yes [id number] 500mg Take 1 Univers oL 500 mg 7-07 tablet by ity o f tablet 00:00: mouth 4 (four) Medical times Branch daily as needed (muscle pain). traMADoL 50 2021-0 2021- No [id number] 50mg Take 1 Uni vers mg tablet 05-22-15 tablet by ity of 00:00: 04:59 mouth [place] 00 :00 every 6 Medical (six) Branch hours as needed for Pain (scale 7-10) for up to 7 days. Indication s: acute pain predniSONE 2021-0 2- No [id number] 20mg Take 1 Univers 20 mg 05-22-12 tablet by ity of tablet 00:00: 04:59 mouth 2 [place] 00 :00 (two) Medical times Branch daily [...] 7-10). Indication s: acute pain naproxen Yes [id number] 500mg Take 1 Univers (NAPROSYN) 12-08 [id number] tablet by it y of 500 mg 00:00: mouth 2 [place] tablet 00 (two) Medical times Branch daily with meals. traMADoL 50 2021-0 Yes [id number] 50mg Take 1 Univ ers mg tablet 12-08 tablet by ity o f 00:00: mouth [place] 00 every 6 Medical (six) Branch hours as needed for Pain (scale 7-10). Indication s: acute pain naproxen Yes [id number] 500mg Take 1 Univers (NAPROSYN) 12-08 [id number] tablet by it y of 500 mg 00:00: mouth 2 [place] tablet 00 (two) Medical times Branch daily with meals. traMADoL 50 2021-0 Yes [id number] 50mg Take 1 Univ ers mg tablet -23 tablet by ity o f 00:00: mouth [place] 00 every 6 Medical (six) Branch hours as needed for Pain (scale 7-10). Indication s: acute pain naproxen Yes [id number] 500mg Take 1 Univers (NAPROSYN) 12-08 [id number] tablet by it y of 500 mg 00:00: mouth 2 [place] tablet 00 (two) Medical times Branch daily with meals. traMADoL 50 Yes [id number] 50mg Take 1 Univ ers mg tablet 23 tablet by ity o f 00:00: mouth [place] 00 every 6 Medical (six) Branch hours as needed for Pain (scale 7-10). Indication s: acute pain naproxen Yes [id number] 500mg Take 1 Univers (NAPROSYN) 12-08 [id number] tablet by it y of 500 mg [...] Comments Source height 2022-07-10 11:20:00 60 [in_i] [facility] weight 2022-07-10 11:20:00 233.6 [lb_av] [facility] temperature 2022-07-10 11:20:00 97.8 [degF] [facility] bmi 2022-07-10 11:20:00 45.62 kg/m2 [facility] oximetry 2022-07-10 11:20:00 99 % [facility] respiratory rate 2022-07-10 11:20:00 17 /min Comm on [facility] blood pressure 2022-07-10 11:20:00 132 mm[Hg] [facility] - systolic [facility] blood pressure 2022-07-10 11:20:00 84 mm[Hg] [facility] - diastolic [facility] Systolic blood 2022-07-06 00:59:00 129 mm[Hg] Univer sity [facility] Diastolic blood 2022-07-06 00:59:00 83 mm[facility]Hg[facility] 2022-07-06 00:59:00 116 /min [facility] Body temperature 2022-07-06 00:59:00 36.89 Neeru [facility] rate 2022-07-06 00:59:00 16 /min [facility] Body height 2022-07-06 00:59:00 152.4 cm [facility] Body weight 2022-07-06 00:59:00 99.791 kg Universi ty [facility] BMI 2022-07-06 00:59:00 42.97 kg/m2 Universi ty [facility] Oxygen saturation in 2022-07-06 00:59:00 99 /min University of Arterial blood by [place] [facility] Pulse oximetry Branch height 2022-06-05 09:40:00 60 [in_i] [facility] weight 2022-06-05 09:40:00 227 [lb_av] [facility] temperature 2022-06-05 09:40:00 98.5 [degF] [facility] bmi 2022-06-05 09:40:00 44.33 kg/m2 [facility] oximetry 2022-06-05 09:40:00 98 % [facility] respiratory rate 2022-06-05 09:40:00 17 /min Comm on [facility] blood pressure 2022-06-05 09:40:00 134 mm[Hg] Common [facility] - systolic [facility] blood pressure 2022-06-05 09:40:00 76 mm[Hg] Common [facility] - diastolic [facility] Systolic blood 2022-05-23 00:00:00 142 mm[Hg] Univer sity [facility] Diastolic blood 2022-05-23 00:00:00 107 mm[Hg] Unive rsity [facility] Heart rate 2022-05-23 00:00:00 99 /min Universi ty [facility] Body temperature 2022-05-23 00:00:00 36.56 Neeru Univ ersity [facility] Respiratory rate 2022-05-23 00:00:00 16 /min [facility] O[facility] in 2022-05-23 00:00:00 99 /min University of Arterial blood by [place] [facility] Pulse oximetry Branch Body height 2022-05-22 22:49:00 152.4 cm Universi ty [facility] Body weight 2022-05-22 22:49:00 99.791 kg [facility] BMI 2022-05-22 22:49:00 42.97 kg/m2 [facility] height 2022-04-09 16:20:00 60 [in_i] Common S [facility] weight 2022-04-09 16:20:00 222.8 [lb_av] [facility] temperature 2022-04-09 16:20:00 97.9 [degF] Common S pirit [facility] bmi 2022-04-09 16:20:00 43.51 kg/m2 Common S [facility] oximetry 2022-04-09 16:20:00 98 % Common S [facility] respiratory rate 2022-04-09 16:20:00 18 /min Comm on [facility] blood pressure 2022-04-09 16:20:00 136 mm[Hg] Common [facility] - systolic [facility] blood pressure 2022-04-09 16:20:00 84 mm[Hg] Common Spirit - diastolic [facility] height 2022-03-12 14:40:00 60 [in_i] Common S [facility] weight 2022-03-12 14:40:00 222.2 [lb_av] [facility] temperature 2022-03-12 14:40:00 97.5 [degF] Common S pirit [facility] bmi 2022-03-12 14:40:00 43.39 kg/m2 Common S pirit [facility] oximetry 2022-03-12 14:40:00 99 % Common S [facility] respiratory rate 2022-03-12 14:40:00 18 /min Comm on [facility] blood pressure 2022-03-12 14:40:00 128 mm[Hg] Common Spirit - systolic [facility] blood pressure 2022-03-12 14:40:00 74 mm[Hg] Common Spirit - diastolic [facility] height 2022-02-17 09:00:00 60 [in_i] [facility] weight 2022-02-17 09:00:00 224.6 [lb_av] [facility] temperature 2022-02-17 09:00:00 98.3 [degF] [facility] bmi 2022-02-17 09:00:00 43.86 kg/m2 [facility] oximetry 2022-02-17 09:00:00 100 % [facility] respiratory rate 2022-02-17 09:00:00 18 /min Comm on [facility] blood pressure 2022-02-17 09:00:00 140 mm[Hg] [facility] systolic [facility] blood pressure 2022-02-17 09:00:00 80 mm[Hg] [facility] diastolic [facility] Systolic blood 2021-12-08 20:05:00 149 mm[Hg] Univer sity [facility] Diastolic blood 2021-12-08 20:05:00 107 mm[Hg] Unive rsity [facility] Heart rate 2021-12-08 20:05:00 103 /min [facility] Body temperature 2021-12-08 20:05:00 36.72 Neeru [facility] Respiratory rate 2021-12-08 20:05:00 18 /min [facility] Body weight 2021-12-08 20:05:00 97.523 kg [facility] Oxygen saturation in 2021-12-08 20:05:00 98 /min [facility] Arterial blood by [facility] Pulse oximetry Branch Procedures Procedure Date / Time Performed Performing Clinician [facility] e CONSENT/REFUSAL FOR 2022-07-06 00:52:30 Doctor Unassigned, [facility] AND Name [facility] TREATMENT REFERRAL- 2022-06-05 05:01:00 Doctor Unassigned, No Univer sity [facility] REQUEST/RESPONSE Name [facility] POCT TEST 2022-05-23 00:04:00 Haleigh Stokes [facility] XR KNEE 3 VW RIGHT 2021-12-08 20:55:09 Khurram Red [facility] NOTICE OF PRIVACY 2021-12-08 19:59:53 Doctor Unassigned, No Univ ersity [facility] PRACTICES Name Medical Branch CONSENT/REFUSAL FOR 2021-12-08 19:59:39 Doctor Unassigned, No [facility] AND Name Medical Branch TREATMENT Plan of Care Planned Activity Planned Date Details Comments Source Future Scheduled 2022-07-[address] [facility] Test 00:00:00 (#1) [code = Medical Center INFLUENZA VACCINE (#1)] Future Scheduled 2022-07-[address] [facility] Test 00:00:00 (#1) [code = Medical Center INFLUENZA VACCINE (#1)] Future Scheduled 2021-11-[address] [facility] Test 00:00:00 (12+) [code = Medical Center DEPRESSION SCREENING (12+)] Future Scheduled 2021-11-[address] [facility] Test 00:00:00 (12+) [code = Medical Center DEPRESSION SCREENING (12+)] Future Scheduled [address] [facility] Test 00:00:00 malignant neoplasm of Medica l Center cervix (procedure) [code = 104925699] Future Scheduled [address] [facility] Test 00:00:00 malignant neoplasm of Medica l Center cervix (procedure) [code = 741658331] Future Scheduled 2004 DTAP/TDAP/TD VACCINES [facility] Test 00:00:00 (1 - Tdap) [code = Medical C enter DTAP/TDAP/TD VACCINES (1 - Tdap)] Future Scheduled 2004 DTAP/TDAP/TD VACCINES [facility] Test 00:00:00 (1 - Tdap) [code = Medical C enter DTAP/TDAP/TD VACCINES (1 - Tdap)] Future Scheduled 2003 HEPATITIS C SCREENING [facility] Test 00:00:00 [code = HEPATITIS C Medical Center SCREENING] Future Scheduled 2003 HEPATITIS C [facility]CRE[facility]ING [facility] Test 00:00:00 [code = HEPATITIS C Medical Center SCREENING] Future Scheduled [address] [facility] Test 00:00:00 Counseling and Medical Cente r Screening (12+) [code = Tobacco Cessation Counseling and Screening (12+)] Future Scheduled [address] [facility] Test 00:00:00 Counseling and Medical Cente r Screening (12+) [code = Tobacco Cessation Counseling and Screening (12+)] Future Scheduled 1985 COVID-19 VACCINE (#1) [facility] Test 00:00:00 [code = COVID-[address] VACCINE (#1)] Future Scheduled 1985 COVID-19 VACCINE (#1) [facility] Test 00:00:00 [code = COVID-[address] VACCINE (#1)] Encounters Start End Encounter Admission Attending Care Care Encounter Source Date/Time Date/Time Type Type Clinicians Facility Department ID 2022-07-14 Outpatient Hendrickson, STLMLC STLMLC [id number] Common 10:34:02 Magy [facility] 2022-07-08 Outpatient Hendrickson, STLMLC STLMLC [id number] Common 14:03:03 Magy [id number] [facility] 2022-06-03 Outpatient Hendrickson, STLMLC STLMLC [id number] Common 15:09:02 Magy [facility] 2022-02-17 Outpatient Hendrickson, STLMLC STLMLC [id number] Common 08:48:03 Magy [id number] [facility] 2022-09-09 2022-09-09 (TEL) STLMLC STLMLC [id number] Co mmon 00:00:00 00:00:00 [facility] 2022-07-10 2022-07-10 OFFICE STLMLC STLMLC [id number] Co mmon 00:00:00 00:00:00 VISIT EST Spir it PT LEVEL 3 [facility] 2022-07-05 2022-07-05 Emergency X MCKAY BONE ERT [id number] Univers 19:58:00 21:17:00 LYNDA kramer [facility] 2022-07-05 2022-07-05 Emergency MCKAY Bone [id number] Univers 19:58:00 21:17:00 Lynda MCCULLOUGH [id number] ity of [place] 4.2.7.2.686 [facility] [id number] [place] [address] Branch 2022-07-02 2022-07-02 (TEL) STLMLC STLMLC [id number] Co mmon 00:00:00 00:00:00 [facility] - [facility] 2022-06-05 2022-06-05 Orders Doctor RACHEL [id number] Univers 00:00:00 00:00:00 Only Unassigned, ОЛЬГА 350.1.13.10 [facility] 4.2.7.2.686 Ji [id number] [place] [address] Branch 2022-06-05 2022-06-05 OFFICE STLC STLMLC [id number] Co mmon 00:00:00 00:00:00 VISIT EST Spir it PT LEVEL 3 - [facility] 2022-05-22 2022-05-22 Emergency X [facility] ERT [id number] Univers 17:51:00 19:27:00 HALEIGH ity of [facility] 2022-05-22 2022-05-22 Emergency [facility] [id number] Univers 17:51:00 19:27:00 Haleigh MCCULLOUGH [id number] i ty of [place] 4.2.7.2.686 [facility] [id number] [place] [address] Branch 2022-04-18 2022-04-18 Telephone SHEILA Rogers [id number] 00:[facility] 00:00[facility]00 [facility] 2022-04-18 2022-04-18 Telephone SHEILA Rogers [id number] 00:00[facility]00 00:00:00 [facility] 2022-04-16 2022-04-16 (TEL) STLMLC STLMLC [id number] Co mmon 00:00:00 00:00:00 [facility] 2022-04-15 2022-04-15 (TEL) STLMLC STLMLC [id number] Co mmon 00:00:00 00:00:00 Spirit - [facility] 2022-04-09 2022-04-09 OFFICE STLMLC STLMLC [id number] Co mmon 00:00:00 00:00:00 VISIT Spirit ESTAB PT - CHI LEVEL 4 [facility] 2022-03-12 2022-03-12 OFFICE STLMLC STLMLC [id number] Co mmon 00:00:00 00:00:00 VISIT Spirit ESTAB PT - CHI LEVEL 4 [facility] 2022-02-17 2022-02-17 OFFICE STLMLC STLMLC [id number] Co mmon 00:00:00 00:00:00 VISIT NEW Spir it PT LEVEL 4 - CHI [facility] 2021-12-08 2021-12-08 Emergency X MCKAY PARSONS ERT [id number] Univers 14:10:00 16:49:00 ANIBAL kramer [facility] 2021-12-08 2021-12-08 Emergency Gualberto [facility] [id number] Univers 14:10:00 16:49:00 Anibal Long [place] 350.1.13.10 i [facility] 4.2.7.2.686 [facility] [id number] [address] Results Test Description Test Time Test Comments Results Result Comments Source POCT TEST 2022-05-23 00:04:00 Test Item Value Reference Range Interpretation Comme nts POCT PREG (test code = 1605) Negative On board controls acceptable with C Line (test code = 3574) Positiv e POCT PREG LOT # (test code = 3575) [id number] POCT PREG TEST DATE (test code = 3576) 09/15/2023 Lab Interpretation (test code = 53151-8) Normal [facility] [id number] 11:39:27SPECIMEN NUMBER: [id number] CULTURE, URINE SPECIMEN NUMBER: [id number] SPECIMEN COMMENT: URINE SOURCE: URINE REPORT STATUS: FINAL ISOLATE NUMBER 1: ORGANISM: 01/25/2022 <10,000 CFU/ML YEAST UNLESS OTHERWISE INDICATED, ALL TESTING PERFORMED [facility] [address] [place], [place] [address] CLOD PULLER: VICTORINO SPIVEY M.D. [place] NUMBER [id number] [facility] ACCREDITATION NO. 2 [id number]
[2022-10-13] MEDS ORDERED: KETOROLAC 30 MG/ML INJ ONE (22:02)
[2022-10-13] MEDS ORDERED: ONDANSETRON 4 MG/2 ML VIAL ONE (22:02)
[2022-10-13] MEDS ORDERED: MAGNES/ALUMIN/SIMET 30ML UCUP ONE (22:02)
[2022-10-13] MEDS ORDERED: NA CHLORIDE 0.9% 1,000 ML ONE (22:03)
[2022-10-13] MEDS ORDERED: DICYCLOMINE HCL 20 MG/2 ML AMP IM ONE (22:03)
[2022-10-13] MEDS ORDERED: LIDOCAINE VISCOUS 2% SOLN 15 ML UDC ONE (22:03)
[2022-10-13 22:39] LABS: Albumin 3.5 g/dL (3.4-5.0); Bilirubin Total 0.7 mg/dL (0.2-1.0); Potassium 3.9 mmol/L (3.5-5.1)
[2022-10-13 22:55] LABS: Absolute Lymphocytes (CBC) 2.5 K/uL (0.7-4.9); Hematocrit 36.4 % (36.0-45.0); Lymphocytes % 21.5 % (15.3-44.8); MCV 83.7 fL (80-100); MPV 7.9 fL (7.6-11.3); RBC Red Blood Cell Count 4.35 M/uL (3.86-4.86)
--- NOTE | 2022-10-13 23:23 | ER ---
Nurse's Notes [facility] Name: Selena Penn Age: 37 yrs Sex: Female : 1985 Arrival Date: 10/13/2022 Time: 19:14 Bed 6 Private MD: Diagnosis: Other viral enteritis Presentation: 10/13 19:40 Chief complaint: Patient states: "I came here the other day and I have some pain in my tw5 stomach. I had some scans and they told me if it got worse to come back. Everything I eat I am throwing up. It hits me like heart lal, then it comes back up.". Coronavirus screen: Vaccine status: Patient reports being unvaccinated. Ebola Screen: Patient negative for fever greater than or equal to 101.5 degrees Fahrenheit, and additional compatible Ebola Virus Disease symptoms Patient denies exposure to infectious person. Patient denies travel to an Ebola-affected area in the 21 days before illness onset. Initial Sepsis Screen: Does the patient meet any 2 criteria? HR > 90 bpm. Does the patient have a suspected source of infection? Yes: Acute abdominal pain. Risk Assessment: Do you want to hurt yourself or someone else? Patient reports no desire to harm self or others. Onset of symptoms is unknown. 19:40 Method Of Arrival: Ambulatory tw5 19:40 Acuity: SAMSON 3 tw5 Triage Assessment: 19:42 General: Appears uncomfortable, obese, Behavior is calm, cooperative, appropriate for tw5 age. Pain: Pain currently is 6 out of 10 on a pain scale. at worst was 10 out of 10 on a pain scale. GI: Reports nausea, vomiting. LEAD BURNER: 19:42 LMP 09/16/2022 tw5 Historical: - Allergies: 19:42 Latex, Natural Rubber (Hives); tw5 19:42 SHELLFISH (Anaphylaxis); tw5 - PMHx: 19:42 ectopic ; Gastric Reflux; Migraines; sciatica; UTI; tw5 - PSHx: 19:42 section; tw5 - Immunization history:: Flu vaccine is not up to date. - Social history:: Smoking status: Patient denies any tobacco usage or history of. - Family history:: not pertinent. Screenin:43 Abuse screen: Denies threats or abuse. Denies injuries from another. Nutritional tw5 screening: No deficits noted. Tuberculosis screening: No symptoms or risk factors identified. Fall Risk None identified. Assessment: 22:14 General: Appears uncomfortable, Behavior is calm, cooperative. Pain: Complains of pain as6 in epigastric area and right upper quadrant Quality of pain is described as crampy, sharp. Neuro: Level of Consciousness is awake, alert, obeys commands, Oriented to person, place, time, situation. Cardiovascular: Capillary refill < 3 seconds JVD is absent. Respiratory: Respiratory effort is even, unlabored. GI: Reports upper abdominal pain, intolerance of food, nausea. Vital Signs: 19:40 BP 128 / 67; Pulse 117; Resp 18; Temp 98.1; Pulse Ox 98% ; Weight 99.79 kg; Height 5 tw5 ft. 0 in. (152.40 cm); Pain 6/10; 22:14 BP 133 / 87; Pulse 88; Resp 18 S; Pulse Ox 98% on R/A; as6 23:35 BP 121 / 60; Pulse 87; Resp 16 S; Pulse Ox 96% on R/A; as6 19:40 Body Mass Index 42.97 (99.79 kg, 152.40 cm) tw5 ED Course: 19:14 Patient arrived in ED. ja2 19:42 Triage completed. tw5 19:42 Arm band placed on right wrist. tw5 19:43 No provider procedures requiring assistance completed. tw5 19:51 Rick Pearce MD is Attending Physician. rt 20:51 Paul Leonardo, RASHAAD is Primary Nurse. as6 22:14 Placed in gown. Bed in low position. Call light in reach. Side rails up X2. as6 22:14 Inserted saline lock: 20 gauge in right antecubital area, using aseptic technique. as6 Blood collected. 23:47 IV discontinued, intact, bleeding controlled, No redness/swelling at site. Pressure as6 dressing applied. Administered Medications: 22:13 Drug: NS 0.9% 1000 ml Route: IV; Rate: 1 bolus; Site: right antecubital; as6 23:46 Follow up: Response: No adverse reaction; IV Status: Completed infusion; IV Intake: as6 1000ml 22:13 Drug: Zofran (Ondansetron) 4 mg Route: IVP; Site: right antecubital; as6 23:46 Follow up: Response: No adverse reaction as6 22:13 Drug: TORadol (ketorolac) 30 mg Route: IVP; Site: right antecubital; as6 23:46 Follow up: Response: No adverse reaction as6 22:13 Drug: Bentyl (dicyclomine) 20 mg Route: IM; Site: right ventrogluteal; as6 23:47 Follow up: Response: No adverse reaction as6 22:13 Drug: GI Cocktail without - (Maalox Suspension 30 ml, Lidocaine Liquid 2 % 15 as6 ml) Route: PO; 23:46 Follow up: Response: No adverse reaction as6 Medication: 22:13 VIS not applicable for this client. as6 Intake: 23:46 IV: 1000ml; Total: 1000ml. as6 Outcome: 23:22 Discharge ordered by . rt 23:35 Condition: stable as6 23:47 Discharged to home ambulatory. as6 23:47 Discharge instructions given to patient, Instructed on discharge instructions, follow up and referral plans. medication usage, Demonstrated understanding of instructions, follow-up care, medications, Prescriptions given X 1. 23:47 Patient left the ED. as6 Signatures: Fabiola Gnozalez Tiffany tw5 Paul Leonardo, RASHAAD RN as6 Rick Pearce MD MD rt
--- NOTE | 2022-10-13 23:23 | EDPHYS ---
Physician Documentation [facility] Name: Selena Penn Age: 37 yrs Sex: Female : 1985 Arrival Date: 10/13/2022 Time: 19:14 Bed 6 Private MD: ED Physician Rick Pearce HPI: 10/13 19:56 This 37 yrs old Female presents to ER via Ambulatory with complaints of Abdominal Pain, rt Nausea. 19:56 The patient presents to the emergency department with nausea, vomiting. Onset: The rt symptoms/episode began/occurred 1 week(s) ago. The symptoms are aggravated by food , The symptoms are alleviated by. Associated signs and symptoms: Pertinent positives: abdominal pain, Pertinent negatives: dysuria. Severity of symptoms: At their worst the symptoms were moderate. Patient was seen in the ED last week for nausea, vomiting. CT scan, ultrasound showed an enteritis, patient had improvement with Zofran. Was discharged on Zofran and Bentyl. Over the past 3 days, the patient has had worsening of her symptoms including nausea, vomiting as well as a crampy left upper abdominal pain. The patient denies other acute complaints at this time, symptoms are moderate severity, no other aggravating or alleviating factors. 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 - Social history:: Smoking status: Patient denies any tobacco usage or history of. - Family history:: not pertinent. ROS: 19:56 Constitutional: Negative for fever, chills, and weight loss, Eyes: Negative for injury, rt pain, redness, and discharge, Neck: Negative for injury, pain, and swelling, Cardiovascular: Negative for chest pain, palpitations, and edema, Respiratory: Negative for shortness of breath, cough, wheezing, and pleuritic chest pain, Back: Negative for injury and pain, MS/Extremity: Negative for injury and deformity, Skin: Negative for injury, rash, and discoloration, Neuro: Negative for headache, weakness, numbness, tingling, and seizure, Psych: Negative for depression, anxiety, suicide ideation, homicidal ideation, and hallucinations. 19:56 Abdomen/GI: Positive for abdominal pain, nausea and vomiting. Exam: 19:56 Constitutional: This is a well developed, well nourished patient who is awake, alert, rt and in no acute distress. Head/Face: Normocephalic, atraumatic. Eyes: Pupils equal round and reactive to light, extra-ocular motions intact. Lids and lashes normal. Conjunctiva and sclera are non-icteric and not injected. Cornea within normal limits. Periorbital areas with no swelling, redness, or edema. ENT: Nares patent. No nasal discharge, no septal abnormalities noted. Tympanic membranes are normal and external auditory canals are clear. Oropharynx with no redness, swelling, or masses, exudates, or evidence of obstruction, uvula midline. Mucous membranes moist. Neck: Trachea midline, no thyromegaly or masses palpated, and no cervical lymphadenopathy. Supple, full range of motion without nuchal rigidity, or vertebral point tenderness. No Meningismus. Chest/axilla: Normal chest wall appearance and motion. Nontender with no deformity. No lesions are appreciated. Cardiovascular: Regular rate and rhythm with a normal S1 and S2. No gallops, murmurs, or rubs. Normal PMI, no JVD. No pulse deficits. Respiratory: Lungs have equal breath sounds bilaterally, clear to auscultation and percussion. No rales, rhonchi or wheezes noted. No increased work of breathing, no retractions or nasal flaring. Skin: Warm, dry with normal turgor. Normal color with no rashes, no lesions, and no evidence of cellulitis. MS/ Extremity: Pulses equal, no cyanosis. Neurovascular intact. Full, normal range of motion. Neuro: Awake and alert, GCS 15, oriented to person, place, time, and situation. Cranial nerves II-XII grossly intact. Motor strength 5/5 in all extremities. Sensory grossly intact. Cerebellar exam normal. Normal gait. Psych: Awake, alert, with orientation to person, place and time. Behavior, mood, and affect are within normal limits. 19:56 Abdomen/GI: Minimal left upper quadrant tenderness without rebound, guarding, distention. Vital Signs: 19:40 BP 128 / 67; Pulse 117; Resp 18; Temp 98.1; Pulse Ox 98% ; Weight 99.79 kg; Height 5 tw5 ft. 0 in. (152.40 cm); Pain 6/10; 22:14 BP 133 / 87; Pulse 88; Resp 18 S; Pulse Ox 98% on R/A; as6 23:35 BP 121 / 60; Pulse 87; Resp 16 S; Pulse Ox 96% on R/A; as6 19:40 Body Mass Index 42.97 (99.79 kg, 152.40 cm) tw5 MDM: 19:55 Patient medically screened. rt 23:24 Differential diagnosis: pancreatitis, appendicitis, viral gastroenteritis, rt gastroenteritis. Data reviewed: vital signs, nurses notes, old medical records, lab test result(s). ED course: Patient was seen in the ED recently, diagnosed with enteritis on CT scan. Her symptoms had improved with Zofran, however, have returned. She has a benign abdominal examination, do not believe that she requires repeat imaging to rule out acute surgical pathology. Her labs are benign, WBCs are improving. Symptoms are improving with treatment in the ED, will prescribe patient Phenergan. Patient to follow-up as an outpatient, return precautions discussed.. 10/13 19:56 Order name: CBC with Diff; Complete Time: 23:12 rt 10/13 19:56 Order name: CMP; Complete Time: 22:50 rt 10/13 19:56 Order name: Lipase; Complete Time: 22:50 rt 10/13 20:00 Order name: Test, Serum; Complete Time: 23:12 rt Administered Medications: 22:13 Drug: NS 0.9% 1000 ml Route: IV; Rate: 1 bolus; Site: right antecubital; as6 23:46 Follow up: Response: No adverse reaction; IV Status: Completed infusion; IV Intake: as6 1000ml 22:13 Drug: Zofran (Ondansetron) 4 mg Route: IVP; Site: right antecubital; as6 23:46 Follow up: Response: No adverse reaction as6 22:13 Drug: TORadol (ketorolac) 30 mg Route: IVP; Site: right antecubital; as6 23:46 Follow up: Response: No adverse reaction as6 22:13 Drug: Bentyl (dicyclomine) 20 mg Route: IM; Site: right ventrogluteal; as6 23:47 Follow up: Response: No adverse reaction as6 22:13 Drug: GI Cocktail without - (Maalox Suspension 30 ml, Lidocaine Liquid 2 % 15 as6 ml) Route: PO; 23:46 Follow up: Response: No adverse reaction as6 Disposition Summary: 10/13/22 23:22 Discharge Ordered Location: Home rt Problem: an ongoing problem rt Symptoms: have improved rt Condition: Stable rt Diagnosis - Other viral enteritis rt Followup: rt - With: Private Physician - When: 2 - 3 days - Reason: Discharge Instructions: - Discharge Summary Sheet rt - Viral Gastroenteritis, Adult rt Forms: - Medication Reconciliation Form rt - Thank You Letter rt - Work release form as6 - Antibiotic Education rt - Prescription Opioid Use rt Prescriptions: - promethazine 25 mg Oral Tablet - take 1 tablet by ORAL route every 6 hours As needed; 20 tablet; Refills: 0, rt Product Selection Permitted Signatures: Dispatcher [employer] Jossy Edwards tw5 Paul Leonardo RN RN as6 Rick Pearce MD MD rt
[2022-10-13 23:59] VITALS: TEMP 98.1
[2022-10-14 00:11] VITALS: BP 121/60; O2SAT 96
== END 2022-10-13 23:47 | disposition home or self-care (01) ==
LOC: ER 19:08
DX: A08.39 Other viral enteritis (principal); Z91.013 Allergy to seafood; Z91.040 Latex allergy status; Z91.048 Other nonmedicinal substance allergy status
CPT/HCPCS: 36415; 80053; 83690; 84703; 85025; 96361; 96372; 96374; 96375; 99284; J0500; J2405; J7030

== ENCOUNTER 2023-04-29 22:43 | Emergency (ER) | payer OTHER, SELFPAY ==
--- OUTSIDE RECORDS SUMMARY | 2023-04-29 22:58 | XMS REPORT | Continuity of Care Document ---
:1985 Author Organization [facility] t Address [address] [place] [address] Care Team Providers Name Role Phone Magy Hendrickson Primary Care Physician Unavailable Mayg Hendrickson Attending Clinician Unavailable LYNDA BONE Attending Clinician Unavailable Lynda Bone DO Attending Clinician Doctor Unassigned, [employer] Attending Clinician Unavailable HALEIGH STOKES Attending Clinician Unavailable Haleigh Kiser Attending Clinician Jovana Rogers Attending Clinician Unavailable ANIBAL PARSONS Attending Clinician Unavailable Anibal Aponte Attending Clinician KHURRAM RED Admitting Clinician Unavailable Payers Payer Name Policy Type Policy Number Effective Date Expiration Date S derek LOPEZ FROM [id number] 2021 [facility] 00:00:00 Problems Condition Condition Condition Status Onset Resolution Last Treating Co mments Source Name Details Category Date Date Treatment Clinician Date No known No known Disease Unive rs active active ity of problems problems [facility] [id number] Migraine Problem Comm on without Spirit aura and - [facility] not Center intractabl e [id number] Essential Problem Comm on (primary) Spirit hypertensi - [facility] on [facility] [id number] Mild major Problem Com mon depression Spirit - [facility] [id number] Mixed Problem Common hyperlipid Spirit emia - [facility] [id number] Body mass Problem Com mon index [facility] [BMI] - [facility] 40.0-44.9, [facility] [id number] Morbid Problem Commo n 9104 (severe) [facility] obesity - [facility] due to [facility] Allergies, Adverse Reactions, Alerts Allergy Allergy Status Severity Reaction(s) Onset Inactive Treating Comm ents Source Name Type Date Date Clinician LATEX DRUG Active Rash Univers INGREDI 05-22 ity of 00:00: [place] [facility] [employer] SHELLFIS DRUG Active SOB Univers H INGREDI 05-22 ity of DERIVED 00:00: [place] [employer] Latex Propensi Active Rash Univers ty to 7 ity of adverse 00:00: [place] reaction [facility] Shellfis Propensi Active Shortness of Univers h ty to Breath 05-22 ity of Derived adverse 00:00: [place] reaction 00 [facility] NO KNOWN Drug Active Univers ALLERGIE Class ity of S [facility] Shellfis Shellfis Active Unknown Commo n h h [facility] Latex Latex Active Unknown Common [facility] Social History Social Habit Start Date Stop Date Quantity Comments Source History of Tobacco Common [facility] Use [facility] Exposure to 2022-06-25 2022-07-05 Not sure [facility] SARS-CoV-2 (event) 00:00:00 20:02:00 Medica l Branch Sex Ass[birth year] At [birth year] [facility] Medical 00:00:00 00:00:00 Center Smoking Status Start Date Stop Date Source Tobacco smoking consumption [facility] Never Smoker Common [facility] Medications Ordered Filled Start Stop Current Ordering Indication Dosage Frequency Signature Comments Components Source Medication Medication Date Date Medication? Clinician (SIG) Name Name diazePAM No 5mg 5 mg, Univers (VALIUM) 07-06 Oral, [...] :00 dose, On Medi mike tablet 1 [facility] Branch tablet 07/05/22 at 2014, DARIAN Gabapentin Gabapentin No 1{capsu BID Gabapentin 100 MG 100 [...] Methocarba ol 500 MG ol 500 MG 06-0531 t} mol 500 MG 00:00: 00:00 00 :00 diazePAM 2021-2021- No 5mg 5 mg, Univers (VALIUM) 05-22 Oral, ity of tablet 5 mg 23:45: 00:03 [place] dose, On Medical Naomi 05/22/22 Branch at 1845, DARIAN ketorolac 2021- No 30mg 30 mg, Unive rs (TORADOL) 05-22- Intramuscu ity of injection 23:45: 00:05 lar, ONCE, [place] 30 mg 00 :00 1 dose, On Medical Naomi 05/22/22 Branch at 1845, DARIAN naproxen 2021-0 Yes [id number] 500mg Take 1 U nivers 500 mg 7-07 tablet by ity of tablet 00:00: mouth 2 (two) Medical times Branch daily with meals. methocarbam 2021-0 Yes [id number] 500mg Take 1 Univers oL 500 mg 7-07 tablet by ity o f tablet 00:00: mouth 4 (four) Medical times Branch daily as needed (muscle pain). naproxen 2021-0 Yes [id number] 500mg Take 1 U nivers 500 mg 7-07 tablet by ity of tablet 00:00: mouth 2 00 (two) Medical times Branch daily with meals. methocarbam 2021-0 Yes [id number] 500mg Take 1 Univers oL 500 mg 7-07 tablet by ity o f tablet 00:00: mouth 4 (four) Medical times Branch daily as needed (muscle pain). naproxen 2021-0 Yes [id number] 500mg Take 1 U nivers 500 mg 7-07 tablet by ity of tablet 00:00: mouth (two) Medical times Branch daily with meals. methocarbam 2021-0 Yes [id number] 500mg Take 1 Univers oL 500 mg [...] days. Indication s: acute pain predniSONE 2021-0 2021- No [id number] 20mg Take 1 Univers 20 mg 7-05 22-12 tablet by ity of tablet 00:00: 04:59 mouth 2 [place] 00 :00 (two) Medical times Branch daily for 4 days. Ondansetron Ondansetron 0 No 1{table Ondansetro HCl 4 MG HCl 4 MG 5-25 t} n HCl 4 MG 00:00: 00 Ondansetron Ondansetron 2021-0 No 1{table Ondansetro HCl 4 MG HCl 4 MG 5-25 t} n HCl 4 MG 00:00: 00 Ondansetron Ondansetron 2022-0 No 1{table Ondansetro HCl 4 MG HCl [...] t} 5 MG 00:00: 00 SUMAtriptan SUMAtriptan No BID SUMAtripta Succinate Succinate 4-04 n 50 MG 50 MG 00:00: Succinate 00 50 MG Lisinopril Lisinopril No 1{table QD Lisinopril 5 MG 5 MG 4-04 t} 5 MG 00:00: 00 SUMAtriptan SUMAtriptan 0 No BID SUMAtripta Succinate [...] Branch 12/08/21 at 1715, Routine traMADoL 50 Yes [id number] 50mg Take 1 Univ ers mg tablet 12-08 tablet by ity o f 00:00: mouth [place] 00 every 6 Medical (six) Branch hours as needed for Pain (scale 7-10). Indication s: acute pain naproxen Yes [id number] 500mg Take 1 Univers (NAPROSYN) 12-08 [id number] tablet by it y of 500 mg 00:00: mouth 2 [place] tablet 00 (two) Medical times Branch daily with meals. traMADoL 50 2021-0 Yes [id number] 50mg Take 1 Univ ers mg tablet 12-08 tablet by ity o f 00:00: mouth [place] 00 every 6 Medical (six) Branch hours as needed for Pain (scale 7-10). Indication s: acute pain naproxen 2021-0 Yes [id number] 500mg Take 1 Univers (NAPROSYN) 1- [id number] tablet by it y of 500 mg 00:00: mouth 2 [place] tablet 00 (two) Medical times Branch daily with meals. traMADoL 50 2021-0 Yes [id number] 50mg Take 1 Univ ers mg tablet 1-23 tablet by ity o f 00:00: mouth [place] 00 every 6 Medical (six) Branch hours as needed for Pain (scale 7-10). Indication s: acute pain naproxen 2021-0 Yes [id number] 500mg Take 1 Univers (NAPROSYN) 1- [id number] tablet by it y of 500 mg 00:00: mouth 2 [place] tablet 00 (two) Medical times Branch daily with meals. traMADoL 50 2021-0 Yes [id number] 50mg Take 1 Univ ers mg tablet 1-23 tablet by ity o f 00:00: mouth [place] 00 every 6 Medical (six) Branch hours as needed for Pain (scale 7-10). Indication s: acute pain naproxen 2021-0 Yes [id number] 500mg Take 1 Univers (NAPROSYN) 1- [id number] tablet by it y of 500 mg [...] Source height 2022-07-10 11:20:00 60 [in_i] [facility] weight 2022-07-10 11:20:00 233.6 [lb_av] Common [facility] temperature 2022-07-10 11:20:00 97.8 [degF] Common [facility] bmi 2022-07-10 11:20:00 45.62 kg/m2 [facility] oximetry 2022-07-10 11:20:00 99 % [facility] respiratory rate 2022-07-10 11:20:00 17 /min Comm on [facility] blood pressure 2022-07-10 11:20:00 132 mm[Hg] Common [facility] blood pressure 2022-07-10 11:20:00 84 mm[Hg] Common Spirit - diastolic [facility] Systolic blood 2022-07-06 00:59:00 129 mm[Hg] Univer sity [facility] Diastolic blood 2022-07-06 00:59:00 83 mm[Hg] [facility] Heart rate 2022-07-06 00:59:00 116 /min [facility] Body temperature 2022-07-06 00:59:00 36.89 Ne[facility]u [facility] Res[facility] rate 2022-07-06 00:59:00 16 /min [facility] Body height 2022-07-06 00:59:00 152.4 cm [facility] Body weight 2022-07-06 00:59:00 99.791 kg [facility] BMI 2022-07-06 00:59:00 42.97 kg/m2 [facility] Oxygen saturation in 2022-07-06 00:59:00 99 /min [facility] blood by [facility] Pulse oximetry Branch height 2022-06-05 09:40:00 60 [in_i] [facility] weight 2022-06-05 09:40:00 227 [lb_av] [facility] temperature 2022-06-05 09:40:00 98.5 [degF] [facility] bmi 2022-06-05 09:40:00 44.33 kg/m2 [facility] oximetry 2022-06-05 09:40:00 98 % [facility] respiratory rate 2022-06-05 09:40:00 17 /min Comm on [facility] blood pressure 2022-06-05 09:40:00 134 mm[Hg] Common [facility] - systolic [facility] blood pressure 2022-06-05 09:40:00 76 mm[Hg] Common [facility] - diastolic [facility] Systolic blood 2022-05-23 00:00:00 142 mm[Hg] Univer sity of [facility] Diastolic blood 2022-05-23 00:00:00 107 mm[Hg] Unive rsity of [facility] Heart rate 2022-05-23 00:00:00 99 /min [facility] Body temperature 2022-05-23 00:00:00 36.56 Neeru [facility] Respiratory rate 2022-05-23 00:00:00 16 /min [facility] Oxygen saturation in 2022-05-23 00:00:00 99 /min [facility] Arterial blood by [facility] Pulse oximetry [facility] Body height 2022-05-22 22:49:00 152.4 cm [facility] Body weight 2022-05-22 22:49:00 99.791 kg [facility] BMI 2022-05-22 22:49:00 42.97 kg/m2 [facility] height 2022-04-09 16:20:00 60 [in_i] Common [facility] weight 2022-04-09 16:20:00 222.8 [lb_av] [facility] temperature 2022-04-09 16:20:00 97.9 [degF] Common [facility] bmi 2022-04-09 16:20:00 43.51 kg/m2 [facility] oximetry 2022-04-09 16:20:00 98 % [facility] respiratory rate 2022-04-09 16:20:00 18 /min Comm on [facility] blood pressure 2022-04-09 16:20:00 136 mm[Hg] Common [facility] - systolic [facility] blood pressure 2022-04-09 16:20:00 84 mm[Hg] Common [facility] - diastolic [facility] height 2022-03-12 14:40:00 60 [in_i] Common [facility] weight 2022-03-12 14:40:00 222.2 [lb_av] Common [facility] temperature 2022-03-12 14:40:00 97.5 [degF] [facility] bmi 2022-03-12 14:40:00 43.39 kg/m2 [facility] oximetry 2022-03-12 14:40:00 99 % [facility] respiratory rate 2022-03-12 14:40:00 18 /min Comm on [facility] blood pressure 2022-03-12 14:40:00 128 mm[Hg] Common [facility] - systolic [facility] blood pressure 2022-03-12 14:40:00 74 mm[Hg] Common [facility] - diastolic [facility] height 2022-02-17 09:00:00 60 [in_i] [facility] weight 2022-02-17 09:00:00 224.6 [lb_av] [facility] temperature 2022-02-17 09:00:00 98.3 [degF] [facility] bmi 2022-02-17 09:00:00 43.86 kg/m2 [facility] oximetry 2022-02-17 09:00:00 100 % [facility] respiratory rate 2022-02-17 09:00:00 18 /min Comm on [facility] blood pressure 2022-02-17 09:00:00 140 mm[Hg] Common [facility] - systolic [facility] blood pressure 2022-02-17 09:00:00 80 mm[Hg] Common [facility] diastolic [facility] Systolic blood 2021-12-08 20:05:00 149 mm[Hg] Univer sity of pressure [facility] Diastolic blood 2021-12-08 20:05:00 107 mm[Hg] Unive rsity of pressure [facility] Heart rate 2021-12-08 20:05:00 103 /min Universi ty [facility] Body temperature 2021-12-08 20:05:00 36.72 Neeru Univ ersity [facility] Respiratory rate 2021-12-08 20:05:00 18 /min [facility] Body weight 2021-12-08 20:05:00 97.523 kg [facility] Oxygen saturation in 2021-12-08 20:05:00 98 /min [facility] Arterial blood by [place] [facility] Pulse oximetry Branch Procedures Procedure Date / Time Performed Performing Clinician Sour e CONSENT/REFUSAL FOR 2022-07-06 00:52:30 Doctor Unassigned, No [facility] DIAGNOSIS AND Name [facility] TREATMENT REFERRAL- 2022-06-05 05:01:00 Doctor Unassigned, No Univer [facility] REQUEST/RESPONSE [facility] POCT TEST 2022-05-23 00:04:00 Haleigh Stokes [facility] XR KNEE 3 VW RIGHT 2021-12-08 20:55:09 Khurarm Red [facility] NOTICE OF PRIVACY 2021-12-08 19:59:53 Doctor Unassigned, No [facility] PRACTICES [facility] CONSENT/REFUSAL FOR 2021-12-08 19:59:39 Doctor Unassigned, [facility] Name [facility] TREATMENT Plan of Care Planned Activity Planned Date Details Comments Source Future Scheduled 2023-07-[address] [facility] Test 00:00:00 (Season Ended) [code Medical Center = Influenza Vaccine (Season Ended)] Future Scheduled 2022-11-[address] [facility] Test 00:00:00 (12+) [code = Medical Center DEPRESSION SCREENING (12+)] Future Scheduled 2022-11-[address] [facility] Test 00:00:00 (12+) [code = Medical Center DEPRESSION SCREENING (12+)] Future Scheduled 2022-11-[address] [facility] Test 00:00:00 (12+) [code = Medical Center DEPRESSION SCREENING (12+)] Future Scheduled 2022-07-[address] [facility] Test 00:00:00 (#1) [code = Medical Center INFLUENZA VACCINE (#1)] Future Scheduled 2022-07-[address] [facility] Test 00:00:00 (#1) [code = Medical Center INFLUENZA VACCINE (#1)] Future Scheduled 2022-07-[address] [facility] Test 00:00:00 (#1) [code = [facility] Center INFLUENZA VACCINE (#1)] Future Scheduled 2022-07-[address] [facility] Test 00:00:00 (#1) [code = [facility] Center INFLUENZA VACCINE (#1)] Future Scheduled 2021-11-[address] [facility] Test 00:00:00 (12+) [code = [facility] Center DEPRESSION SCREENING (12+)] Future Scheduled 2021-11-[address] [facility] Test 00:00:00 (12+) [code = [facility] Center DEPRESSION SCREENING (12+)] Future Scheduled [address] [facility] Test 00:00:00 malignant neoplasm of Medica l Center cervix (procedure) [code = 084410742] Future Scheduled [address] [facility] Test 00:00:00 malignant neoplasm of Medica l Center cervix (procedure) [code = 233540726] Future Scheduled [address] [facility] Test 00:00:00 malignant neoplasm of Medica l Center cervix (procedure) [code = 893231352] Future Scheduled [address] [facility] Test 00:00:00 malignant neoplasm of Medica l Center cervix (procedure) [code = 162642676] Future Scheduled [address] [facility] Test 00:00:00 malignant neoplasm of Medica l Center cervix (procedure) [code = 175126388] Future Scheduled 2004 DTAP/TDAP/TD VACCINES CH I [...] Date/Time Type Type Clinicians Facility Department ID 2023-04-27 Outpatient Hendrickson, STLMLC STLMLC [id number] Common 11:48:00 Magy 23404 [facility] 2023-02-10 Outpatient Hendrickson, STLMLC STLMLC [id number] Common 16:35:05 Magy 11658 [facility] 2023-01-06 Outpatient Hendrickson, STLMLC STLMLC [id number] Common 15:13:02 Magy [facility] 2023-01-05 Outpatient Hendrickson, STLMLC STLMLC [id number] Common 13:10:01 Magy [facility] 2022-12-31 Outpatient Hendrickson, STLMLC STLMLC [id number] Common 13:53:01 Magy [facility] 2022-07-14 Outpatient Hendrickson, STLMLC STLMLC [id number] Common 10:34:02 Magy [facility] 2022-07-08 Outpatient Hendrickson, STLMLC STLMLC [id number] Common 14:03:03 Magy [facility] 2022-06-03 Outpatient Hendrickson, STLMLC STLMLC [id number] Common 15:09:02 Magy [facility] 2022-02-17 Outpatient Hendrickson, STLMLC STLMLC [id number] Common 08:48:03 Magy 89608 [facility] 2022-11-13 2022-11-13 (TEL) STLMLC STLMLC [id number] Co mmon 00:00:00 00:00:00 [facility] 2022-09-09 2022-09-09 (TEL) STLMLC STLMLC [id number] Co mmon 00:00:00 00:00:00 [facility] 2022-07-10 2022-07-10 OFFICE STLMLC STLMLC [id number] Co mmon 00:00:00 00:00:00 VISIT EST Spir it PT LEVEL 3 [facility] 2022-07-05 2022-07-05 Emergency X SMITHA [facility] ERT [id number] Univers 19:58:00 21:17:00 LYNDA kramer of [facility] 2022-07-05 2022-07-05 Emergency [facility] [id number] Univers 19:58:00 21:17:00 Lynda MCCULLOUGH [id number] ity [facility] [id number] [facility] [id number] [facility] 084 Branch 2022-07-02 2022-07-02 (TEL) STLMLC STLMLC [id number] Co mmon 00:00:00 00:00:00 [facility] 2022-06-05 2022-06-05 OFFICE STLMLC STLMLC [id number] Co mmon 00:00:00 00:00:00 VISIT EST Spir it PT LEVEL 3 [facility] 2022-06-05 2022-06-05 Orders Doctor RAMOS [id number] Univers 00:00:00 00:00:00 Only Unassigned, ОЛЬГА [id number] [facility] [id number] [facility] [id number] [facility] 009 Branch 2022-05-22 2022-05-22 Emergency [facility] [id number] Univers 17:51:00 19:27:00 HALEIGH kramer [facility] 2022-05-22 2022-05-22 Emergency [facility] [id number] Univers 17:51:00 19:27:00 Haleigh MCCULLOUGH [id number] i ty of [place] 4.2.7.2.686 [facility] [id number] [place] [address] Branch 2022-04-18 2022-04-[address] [facility] [id number] 00:[facility] 00:00:00 [facility] 2022-04-16 2022-04-16 (TEL) STLC STLMLC [id number] Co mmon 00:00:00 00:00:00 [facility] 2022-04-15 2022-04-15 (TEL) STLMLC STLMLC [id number] Co mmon 00:00:00 00:00:00 Spirit - [facility] 2022-04-09 2022-04-09 OFFICE STLMLC STLMLC [id number] Co mmon 00:00:00 00:00:00 VISIT Spirit ESTAB PT - CHI LEVEL 4 [facility] 2022-03-12 2022-03-12 OFFICE STLMLC STLMLC [id number] Co mmon 00:00:00 00:00:00 VISIT Spirit ESTAB PT - CHI LEVEL 4 [facility] 2022-02-17 2022-02-17 OFFICE STLMLC STLMLC [id number] Co mmon 00:00:00 00:00:00 VISIT NEW [facility] it PT LEVEL 4 - [facility] 2021-12-08 2021-12-08 Emergency [facility] [id number] Univers 14:10:00 16:49:00 ANIBAL kramer [facility] 2021-12-08 2021-12-08 Emergency [facility] [id number] Univers 14:10:00 16:49:00 Anibal MCCULLOUGH [id number] i ty [facility] [id number] [facility] [id number] [facility] 084 Branch Results Test Description Test Time Test Comments Results Result Comments Source POCT TEST 2022-05-23 00:04:00 Test Item Value Reference Range Interpretation Comme nts POCT PREG (test code = 1605) Negative On board controls acceptable with C Line (test code = 3574) Positiv e POCT PREG LOT # (test code = 3575) [id number] POCT PREG TEST DATE (test code = 3576) 09/15/2023 Lab Interpretation (test code = 77966-5) [id number] 11:39:27SPECIMEN NUMBER: [id number] CULTURE, URINE SPECIMEN NUMBER: [id number] SPECIMEN COMMENT: URINE SOURCE:URINE REPORT STATUS: FINAL ISOLATE NUMBER 1: ORGANISM: 01/25/2022 <10,000 CFU/ML YEAST UNLESS OTHERWISE INDICATED, ALL TESTING PERFORMED [facility] [address] [place] [id number] AUTOMATIC PATTERN EDGER: VICTORINO SPIVEY M.D. CLIA NUMBER [id number] [place]. [id number]
--- NOTE | 2023-04-29 23:45 | EDPHYS ---
Physician Documentation [facility] Name: Selena Penn Age: 38 yrs Sex: Female : 1985 Arrival Date: 04/29/2023 Time: 22:43 Bed 19 Private MD: NOEL HICKEY ED Physician Rick Pearce HPI: 04/30 00:37 This 38 yrs old Female presents to ER via Ambulatory with complaints of Knee Pain, rt Bumps behind knee. 00:37 Patient with history of chronic kidney pain presents to the ED with worsening of the rt knee pain for 1 week. The patient noticed today that she had some red bumps at the back of her knee, she attributed this initially to her rolling up pajama pants too tightly. She denies fever, chills, other acute complaints. Pain is aching nature, nonradiating, moderate in severity, no other aggravating alleviating factors.. FINGER WAVER: 04/29 23:09 LMP 04/29/2023 mb9 Historical: - Allergies: 23:08 Latex, Natural Rubber (Hives); mb9 23:08 SHELLFISH (Anaphylaxis); mb9 - Home Meds: 23:08 None [Active]; mb9 - PMHx: 23:08 ectopic ; Gastric Reflux; Migraines; sciatica; UTI; mb9 - PSHx: 23:08 section; mb9 - Immunization history:: Adult Immunizations up to date. - Social history:: Smoking status: Patient denies any tobacco usage or history of. - Family history:: not pertinent. ROS: 04/30 00:37 Constitutional: Negative for fever, chills, and weight loss, Cardiovascular: Negative rt for chest pain, palpitations, and edema, Respiratory: Negative for shortness of breath, cough, wheezing, and pleuritic chest pain, Abdomen/GI: Negative for abdominal pain, nausea, vomiting, diarrhea, and constipation, Neuro: Negative for headache, weakness, numbness, tingling, and seizure, Psych: Negative for depression, anxiety, suicide ideation, homicidal ideation, and hallucinations. MS/extremity: Positive for pain, Negative for injury or acute deformity. Skin: Positive for pustules, Negative for laceration(s). Exam: 00:40 Constitutional: This is a well developed, well nourished patient who is awake, alert, rt and in no acute distress. Head/Face: Normocephalic, atraumatic. Chest/axilla: Normal chest wall appearance and motion. Nontender with no deformity. No lesions are appreciated. Cardiovascular: Regular rate and rhythm with a normal S1 and S2. No gallops, murmurs, or rubs. Normal PMI, no JVD. No pulse deficits. Respiratory: Lungs have equal breath sounds bilaterally, clear to auscultation and percussion. No rales, rhonchi or wheezes noted. No increased work of breathing, no retractions or nasal flaring. Abdomen/GI: Soft, non-tender, with normal bowel sounds. No distension or tympany. No guarding or rebound. No evidence of tenderness throughout. 00:40 Musculoskeletal/extremity: No joint effusion noted, no erythema overlying the joint, patient is able to bend the knee fully. No focal areas of tenderness. There are about 4 small pustules at the back of the leg, consistent with folliculitis. Pulses, motor, sensation intact. Vital Signs: 04/29 23:06 BP 145 / 86; Pulse 105; Resp 20; Temp 98.2; Pulse Ox 100% ; Weight 102.06 kg; Height 5 mb9 ft. 2 in. ; 23:06 Body Mass Index 41.15 (102.06 kg, 157.48 cm) mb9 MDM: 23:21 Patient medically screened. rt 04/30 00:40 Differential diagnosis: Folliculitis, abscess, cellulitis, septic arthritis, rt musculoskeletal pain. Data reviewed: vital signs, nurses notes. I considered the following discharge prescriptions or medication management in the emergency department Medications were administered in the Emergency Department. See MAR. Test considered but Not performed: Labs: Patient's physical exam is not consistent with a septic arthritis, labs to include arthrocentesis are not indicated at this time. Patient was informed of findings consistent with a septic arthritis will return if the symptoms develop. X-ray: No trauma, signs of internal derangement, x-rays not indicated. Counseling: I had a detailed discussion with the patient and/or guardian regarding: the historical points, exam findings, and any diagnostic results supporting the discharge/admit diagnosis, the need for outpatient follow up, to return to the emergency department if symptoms worsen or persist or if there are any questions or concerns that arise at home. Administered Medications: 04/29 23:46 Drug: Ketorolac IM 15 mg Route: IM; Site: right deltoid; rv 23:56 Follow up: Response: Medication administered at discharge. rv Disposition Summary: 04/29/23 23:44 Discharge Ordered Location: Home rt Problem: new rt Symptoms: are unchanged rt Condition: Stable rt Diagnosis - Pain in right knee rt - Folliculitis rt Followup: rt - With: Private Physician - When: 2 - 3 days - Reason: Discharge Instructions: - Discharge Summary Sheet rt - Acute Knee Pain, Adult rt - Folliculitis rt Forms: - Medication Reconciliation Form rt - Thank You Letter rt - Antibiotic Education rt - Prescription Opioid Use rt Prescriptions: - Prednisone 20 mg Oral Tablet - take 1 tablet by ORAL route once daily for 5 days; 5 tablet; Refills: 0, rt Product Selection Permitted - Doxycycline Hyclate 100 mg Oral Tablet - take 1 tablet by ORAL route every 12 hours; 20 tablet; Refills: 0, Product rt Selection Permitted Signatures: Rupert Unger RN RN Betina Strange RN RN mb9 Rick Pearce MD MD rt
--- NOTE | 2023-04-29 23:45 | ER ---
Nurse's Notes [facility] Name: Selena Penn Age: 38 yrs Sex: Female : 1985 Arrival Date: 04/29/2023 Time: 22:43 Bed 19 Private MD: NOEL HICKEY Diagnosis: Pain in right knee;Folliculitis Presentation: 04/29 23:06 Chief complaint: Patient states: "I've been having pain in my right knee but last week mb9 I noticed weird bumps behind my right knee and now there a few of them. It hurts really bad and hurts to walk". Coronavirus screen: Vaccine status: Patient reports receiving the 2nd dose of the covid vaccine. Ebola Screen: No symptoms or risks identified at this time. Initial Sepsis Screen: Does the patient meet any 2 criteria? HR > 90 bpm. Does the patient have a suspected source of infection? No. Patient's initial sepsis screen is negative. Risk Assessment: Do you want to hurt yourself or someone else? Patient reports no desire to harm self or others. Onset of symptoms was April 29, 2023. 23:06 Method Of Arrival: Ambulatory mb9 23:06 Acuity: SAMSON 4 mb9 Triage Assessment: 23:09 General: Appears uncomfortable, Behavior is appropriate for age. Pain: Complains of mb9 pain in right knee Pain radiates to posterior side of right knee Quality of pain is described as aching, throbbing. Neuro: [place] Agitation-Sedation Scale (RASS): 0 - Alert and Calm Level of Consciousness is awake, alert, obeys commands, Oriented to person, place, time, situation, Appropriate for age. Cardiovascular: Patient's skin is warm and dry. Respiratory: Airway is patent Respiratory effort is even, unlabored, Respiratory pattern is regular, symmetrical. Derm: bite to posterior right knee. Musculoskeletal: Range of motion: intact in all extremities. 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 - Social history:: Smoking status: Patient denies any tobacco usage or history of. - Family history:: not pertinent. Screenin:09 [facility] ED Fall Risk Assessment (Adult) History of falling in the last 3 months, mb9 including since admission No falls in past 3 months (0 pts) Confusion or Disorientation No (0 pts) Intoxicated or Sedated No (0 pts) Impaired Gait No (0 pts) Mobility Assist Device Used No (0 pt) Altered Elimination No (0 pt) Score/Fall Risk Level 0 - 2 = Low Risk Oriented to surroundings, Maintained a safe environment, Educated pt \\T\\ family on fall prevention, incl call for assistance when getting out of bed. Abuse screen: Denies threats or abuse. Nutritional screening: No deficits noted. Tuberculosis screening: No symptoms or risk factors identified. Assessment: 23:00 General: Appears uncomfortable, Behavior is calm, cooperative. rv 23:00 Pain: Complains of pain in posterior aspect of right knee. Neuro: Level of rv Consciousness is awake, alert, obeys commands, Oriented to person, place, time, situation. Cardiovascular: Capillary refill < 3 seconds. Respiratory: Airway is patent Respiratory effort is even, unlabored. Vital Signs: 23:06 BP 145 / 86; Pulse 105; Resp 20; Temp 98.2; Pulse Ox 100% ; Weight 102.06 kg; Height 5 mb9 ft. 2 in. ; 23:06 Body Mass Index 41.15 (102.06 kg, 157.48 cm) mb9 ED Course: 22:46 Patient arrived in ED. es 22:51 NOEL HICKEY is Private Physician. es 23:06 Arm band placed on. mb9 23:08 Triage completed. mb9 23:08 Placed in gown. Bed in low position. Call light in reach. Side rails up X 1. Client mb9 placed on continuous cardiac and pulse oximetry monitoring. NIBP monitoring applied. 23:19 Rick Pearce MD is Attending Physician. rt 23:43 Rupert Unger, RASHAAD is Primary Nurse. rv 23:55 No provider procedures requiring assistance completed. Patient did not have IV access rv during this emergency room visit. Administered Medications: 23:46 Drug: Ketorolac IM 15 mg Route: IM; Site: right deltoid; rv 23:56 Follow up: Response: Medication administered at discharge. rv Medication: 23:09 VIS not applicable for this client. mb9 Outcome: 23:44 Discharge ordered by . rt 23:55 Discharged to home ambulatory. rv 23:55 Condition: good 23:55 Discharge instructions given to patient, Instructed on discharge instructions, follow up and referral plans. medication usage, Demonstrated understanding of instructions, follow-up care, medications, Prescriptions given X 2. 23:56 Patient left the ED. rv Signatures: Concepción iMchaud Ronaldo, RN RN rv Betina Strange RN RN mb9 Rick Pearce MD MD rt
[2023-04-29] MEDS ORDERED: KETOROLAC 30 MG/ML INJ ONE (23:52)
[2023-04-30 00:43] VITALS: BP 145/86; TEMP 98.2; O2SAT 100
== END 2023-04-29 23:56 | disposition home or self-care (01) ==
LOC: ER 22:43
DX: M25.561 Pain in right knee (principal); L73.9 Follicular disorder, unspecified
CPT/HCPCS: 96372; 99284

== ENCOUNTER 2023-10-12 20:18 | Emergency (ER) | payer SELFPAY ==
--- OUTSIDE RECORDS SUMMARY | 2023-10-12 20:23 | XMS REPORT | Continuity of Care Document ---
:1985 Author Organization [facility] t Address [address] [facility] [place] [address] Care Team Providers Name Role Phone Magy Hendrickson MD Primary Care Physician Magy Hendrickson Attending Clinician Unavailable [email or web address] Attending Clinician Unavailable Doctor Unassigned, [place] Attending Clinician Unavailable Haseeb Mosher Attending Clinician Chung Wang MD Attending Clinician CHUNG WANG Attending Clinician Unavailable LYNDA BONE Attending Clinician Unavailable Lynda Bone DO Attending Clinician [place] Attending Clinician Unavailable Haleigh Kiser Attending Clinician Jovana Rogers Attending Clinician Unavailable ANIBAL PARSONS Attending Clinician Unavailable Anibal Aponte Attending Clinician [email or web address] Admitting Clinician Unavailable CHUNG WANG Admitting Clinician Unavailable KHURRAM RED Admitting Clinician Unavailable Payers Payer Name Policy Type Policy Number Effective Date Expiration Date S ource Problems Condition Condition Condition Status Onset Resolution Last Treating Co mments Source Name Details Category Date Date Treatment Clinician Date No known No known Disease Unive rs active active ity of problems problems [facility] Allergic Non-season Problem Com mon rhinitis al Spirit [id number] Problem Common (generaliz Spirit ed anxiety - CHI disorder) [facility] [id number] Migraine Problem Comm on without [facility] aura and - CHI without [facility] migrainosu [facility]ica [facility] intractabl e [id number] Essential Problem Comm on (primary) Spirit hypertensi - CHI on [facility] [id number] Mild major Problem Com mon depression Spirit - CHI [facility] [id number] Mixed Problem Common hyperlipid Spirit emia - CHI [facility] [id number] Body mass Problem Com mon index Spirit [BMI] - CHI 40.0-44.9, [facility] [id number] Morbid Problem Commo n 9104 (severe) Spirit obesity - CHI due to [facility] Allergies, Adverse Reactions, Alerts Allergy Allergy Status Severity Reaction(s) Onset Inactive Treating Comm ents Source Name Type Date Date Clinician LATEX DRUG Active Rash Univers INGREDI - ity of 00:00: 00 [facility] SHELLFIS DRUG Active SOB Univers H INGREDI 05-22 ity of DERIVED 00:00: 00 [facility] Latex Propensi Active Rash Univers ty to 05-22 ity of adverse 00:00: [place] reaction 00 [facility] Shellfis Propensi Active Shortness of 2021-0 Univers h ty to Breath 05-22 ity of Derived adverse 00:00: [place] reaction 00 [facility] Shellfis Shellfis Active Unknown Commo n h (FN) h (FN) Spirit - [facility] Latex Latex Active Unknown [facility] - [facility] NO KNOWN Drug Active Univers ALLERGIE Class ity of [facility] Social History Social Habit Start Date Stop Date Quantity Comments Source History of Tobacco Common Spirit - CHI Use [facility] Sexual orientation [facility] Exposure to 2022-06-25 2022-07-05 Not sure [facility] SARS-CoV-2 (event) 00:00:00 20:02:00 [facility] Sex Assigned At [birth year] [facility] 00:00:00 00:00:00 [facility] Smoking Status Start Date Stop Date Source Tobacco smoking consumption [facility] Branch Never Smoker [facility] - [facility] Medications Ordered Filled Start Stop Current Ordering Indication Dosage Frequency Signature Comments Components Source Medication Medication Date Date Medication? Clinician (SIG) Name Name ketorolac 2022- No 60mg 60 mg, Unive rs (TORADOL) 05-01 Intramuscu ity of injection 16:30: 16:28 [place] 60 mg 00 :00 NOW, 1 Medical dose, On Branch Thu05/01/23 at 1130, DARIAN meloxicam 2022-0 Yes [id number] 15mg Take 1 Univers 15 mg 6-16 tablet by ity of tablet 00:00: mouth in [place] 00 the Medical morning. Branch acetaminoph 2022-0 Yes [id number] 650mg Take 1 Univers en (TYLENOL 6-16 tablet by ity of ARTHRITIS 00:00: mouth [place] PAIN) 650 00 every 8 Medical mg CR (eight) Branch tablet hours as needed for Pain. meloxicam 2022-0 Yes [id number] 15mg Take 1 Univers 15 mg 6-16 tablet by ity of tablet 00:00: mouth in [place] 00 the Medical morning. Branch acetaminoph 2022-0 Yes [id number] 650mg Take 1 Univers en (TYLENOL 6-16 tablet by ity of ARTHRITIS 00:00: mouth [place] PAIN) 650 00 every 8 Medical mg CR (eight) Branch tablet hours as needed for Pain. meloxicam 2022-0 Yes [id number] 15mg Take 1 Univers 15 mg 6-16 tablet by ity of tablet 00:00: mouth in [place] 00 the Medical morning. Branch acetaminoph 2022-0 Yes [id number] 650mg Take 1 Univers en (TYLENOL 6-16 tablet by ity of ARTHRITIS 00:00: mouth [place] PAIN) 650 00 every 8 Medical mg CR (eight) Branch tablet hours as needed for Pain. diazePAM 2021- No 5mg 5 mg, Univers (VALIUM) 07-06 [...] le} 100 MG 00:00: 00 Gabapentin Gabapentin 0 No 1{capsu BID Gabapentin 100 MG 100 MG 06-05 le} 100 MG 00:00: 00 Gabapentin Gabapentin 0 No 1{capsu BID Gabapentin 100 MG 100 MG 06-05 le} 100 MG 00:00: 00 Gabapentin Gabapentin 2021-0 No 1{capsu BID Gabapentin 100 MG 100 MG 06-05 le} 100 MG 00:00: 00 Gabapentin Gabapentin 0 No 1{capsu BID Gabapentin 100 MG 100 MG 06-05 le} 100 MG 00:00: 00 Methocarbam Methocarbam 2021- No 1{table Methocarba ol 500 MG ol 500 MG 06-05 t} mol 500 MG 00:00: 00:00 00 :00 diazePAM 2021-2021- No 5mg 5 mg, Univers (VALIUM) 05-22 Oral, ity of tablet 5 mg 23:45: 00:03 ONCE, 1 [place] :[place] dose, On [facility] 05/22/22 Branch at 1845, DARIAN ketorolac 2021- No 30mg 30 mg, Unive rs (TORADOL) 05-22 07-08 Intramuscu ity of injection 23:45: 00:05 lar, ONCE, [place] 30 mg 00 :00 [facility] Branch at 1845, DARIAN naproxen 2-0 Yes [id number] 500mg Take 1 U nivers 500 mg 7-07 tablet by ity of tablet 00:00: mouth (two) Medical times Branch daily with meals. methocarbam 2-0 Yes [id number] 500mg Take 1 Univers oL 500 mg 7-07 tablet by ity o f tablet 00:00: mouth (four) Medical times Branch daily as needed (muscle pain). naproxen 2-0 Yes [id number] 500mg Take 1 U nivers 500 mg 7-07 tablet by ity of tablet 00:00: mouth (two) Medical times Branch daily with meals. methocarbam 2-0 Yes [id number] 500mg Take 1 Univers oL 500 mg 7-07 tablet by ity o f tablet 00:00: mouth (four) Medical times Branch daily as needed (muscle pain). naproxen 2-0 Yes [id number] 500mg Take 1 U nivers 500 mg 7-07 tablet by ity of tablet 00:00: mouth (two) Medical times Branch daily with meals. methocarbam 2-0 Yes [id number] 500mg Take 1 Univers oL 500 mg 7-07 tablet by ity o f tablet 00:00: mouth (four) Medical times Branch daily as needed (muscle pain). naproxen 2-0 Yes [id number] 500mg Take 1 U nivers 500 mg 7-07 tablet by ity of tablet 00:00: mouth (two) Medical times Branch daily with meals. methocarbam 2-0 Yes [id number] 500mg Take 1 Univers oL 500 mg 7-07 tablet by ity o f tablet 00:00: mouth (four) Medical times Branch daily as needed (muscle pain). naproxen 2022-0 Yes [id number] 500mg Take 1 U nivers 500 mg 7-07 tablet by ity of tablet 00:00: mouth (two) Medical times Branch daily with meals. methocarbam 2022-0 Yes [id number] 500mg Take 1 Univers oL 500 mg 7-07 tablet by ity o f tablet 00:00: mouth 4 [place] 00 (four) Medical times Branch daily as needed (muscle pain). naproxen Yes [id number] 500mg Take 1 U nivers 500 mg 7-07 tablet by ity of tablet 00:00: mouth 2 00 (two) Medical times Branch daily with meals. methocarbam Yes [id number] 500mg Take 1 Univers oL 500 mg 7-07 tablet by ity o f tablet 00:00: mouth 4 [place] 00 (four) Medical times Branch daily as needed (muscle pain). traMADoL 50 2021- No [id number] 50mg Take 1 Uni vers mg tablet 05-22-15 tablet by ity of 00:00: 04:59 mouth [place] 00 :00 every 6 Medical (six) Branch hours as needed for Pain (scale 7-10) for up to 7 days. Indication s: acute pain predniSONE 2021-2021- No [id number] 20mg Take 1 Univers 20 mg 05-22-12 tablet by ity of tablet 00:00: 04:59 mouth 2 [place] 00 :00 (two) Medical times Branch daily [...] HCl 4 MG 00:00: 00 DULoxetine DULoxetine 2021-0 No 1{capsu QD DULoxetine HCl 40 MG [...] Branch tablet 12/08/21 at 1715, DARIAN naproxen 2021- No 500mg 500 mg, Univ ers (NAPROSYN) [...] 7-10). Indication s: acute pain naproxen Yes [id number] 500mg Take 1 Univers (NAPROSYN) 12-08 [id number] tablet by it y of 500 mg 00:00: mouth 2 [place] tablet 00 (two) Medical times Branch daily with meals. traMADoL 50 0 Yes [id number] 50mg Take 1 Univ ers mg tablet 12-08 tablet by ity o f 00:00: mouth [place] 00 every 6 Medical (six) Branch hours as needed for Pain (scale 7-10). Indication s: acute pain naproxen 0 Yes [id number] 500mg Take 1 Univers (NAPROSYN) 12-08 [id number] tablet by it y of 500 mg 00:00: mouth 2 [place] tablet 00 (two) Medical times Branch daily with meals. traMADoL 50 2021-0 Yes [id number] 50mg Take 1 Univ ers mg tablet 23 tablet by ity o f 00:00: mouth [place] 00 every 6 Medical (six) Branch hours as needed for Pain (scale 7-10). Indication s: acute pain naproxen 2021-0 Yes [id number] 500mg Take 1 Univers (NAPROSYN) 12-08 [id number] tablet by it y of 500 mg 00:00: mouth 2 [place] tablet 00 (two) Medical times Branch daily with meals. traMADoL 50 2-0 Yes [id number] 50mg Take 1 Univ ers mg tablet 1-23 tablet by ity o f 00:00: mouth [place] 00 every 6 Medical (six) Branch hours as needed for Pain (scale 7-10). Indication s: acute pain naproxen 2022-0 Yes [id number] 500mg Take 1 Univers (NAPROSYN) 1-23 [id number] tablet by it y of 500 mg 00:00: mouth 2 [place] tablet 00 (two) Medical times Branch daily with meals. traMADoL 50 2021-0 Yes [id number] 50mg Take 1 Univ ers mg tablet 1-23 tablet by ity o f 00:00: mouth [place] 00 every 6 Medical (six) Branch hours as needed for Pain (scale 7-10). Indication s: acute pain naproxen 2-0 Yes [id number] 500mg Take 1 Univers (NAPROSYN) 1- [id number] tablet by it y of 500 mg 00:00: mouth 2 [place] tablet 00 (two) Medical times Branch daily with meals. traMADoL 50 2021-0 Yes [id number] 50mg Take 1 Univ ers mg tablet 1-23 tablet by ity o f 00:00: mouth [place] 00 every 6 Medical (six) Branch hours as needed for Pain (scale 7-10). Indication s: acute pain naproxen 2022-0 Yes [id number] 500mg Take 1 Univers (NAPROSYN) 1-23 [id number] tablet by it y of 500 mg 00:00: mouth 2 [place] tablet 00 (two) Medical times Branch daily with meals. traMADoL 50 2-0 Yes [id number] 50mg Take 1 Univ ers mg tablet 1-23 tablet by ity o f 00:00: mouth [place] 00 every 6 Medical (six) Branch hours as needed for Pain (scale 7-10). Indication s: acute pain naproxen 2022-0 Yes [id number] 500mg Take 1 Univers (NAPROSYN) 1-23 [id number] tablet by it y of 500 mg [...] 5 MG 5 MG t} 5 MG Citalopram Citalopram No 1{table QD Citalopram Hydrobromid Hydrobromid t} Hydrobromi e 10 MG e 10 MG de 10 MG busPIRone busPIRone No busPIRone HCl 5 MG HCl 5 MG HCl 5 MG SUMAtriptan SUMAtriptan No BID SUMAtripta Succinate Succinate n 50 MG 50 MG Succinate 50 MG busPIRone busPIRone No busPIRone HCl 5 MG HCl 5 MG HCl 5 MG Lisinopril Lisinopril No 1{table QD Lisinopril 5 MG 5 MG t} 5 MG SUMAtriptan SUMAtriptan No SUMAtripta Succinate Succinate n 50 MG 50 MG Succinate 50 MG Citalopram Citalopram No 1{table QD Citalopram Hydrobromid Hydrobromid t} Hydrobromi e 10 MG e 10 MG de 10 MG busPIRone busPIRone No busPIRone HCl 5 MG HCl 5 MG HCl 5 MG Lisinopril Lisinopril No 1{table QD Lisinopril 5 MG 5 MG t} 5 MG SUMAtriptan SUMAtriptan No SUMAtripta Succinate Succinate n 50 MG 50 MG Succinate 50 MG Citalopram Citalopram No 1{table QD Citalopram Hydrobromid Hydrobromid t} Hydrobromi e 10 MG e 10 MG de 10 MG busPIRone busPIRone No busPIRone HCl 5 MG HCl 5 MG HCl 5 MG Lisinopril Lisinopril No 1{table QD Lisinopril 5 MG 5 MG t} 5 MG SUMAtriptan SUMAtriptan No SUMAtripta Succinate Succinate n 50 MG 50 MG Succinate 50 MG Citalopram Citalopram No 1{table QD Citalopram Hydrobromid Hydrobromid t} Hydrobromi e 10 MG e 10 MG de 10 MG busPIRone busPIRone No busPIRone HCl 5 MG HCl 5 MG HCl 5 MG Lisinopril Lisinopril No 1{table QD Lisinopril 5 MG 5 MG t} 5 MG SUMAtriptan SUMAtriptan No SUMAtripta Succinate Succinate n 50 MG 50 MG Succinate 50 MG Citalopram Citalopram No 1{table QD Citalopram Hydrobromid Hydrobromid t} Hydrobromi e 10 MG e 10 MG de 10 MG Lisinopril Lisinopril No 1{table QD Lisinopril 5 MG 5 MG t} 5 MG Citalopram Citalopram No 1{table QD Citalopram Hydrobromid Hydrobromid t} Hydrobromi e 10 MG e 10 MG de 10 MG SUMAtriptan SUMAtriptan No SUMAtripta Succinate Succinate n 50 MG 50 MG Succinate 50 MG busPIRone busPIRone No busPIRone HCl 5 MG HCl 5 MG HCl 5 MG Lisinopril Lisinopril No 1{table QD Lisinopril 5 MG 5 MG t} 5 MG Citalopram Citalopram No 1{table QD Citalopram Hydrobromid Hydrobromid t} Hydrobromi e 10 MG e 10 MG de 10 MG SUMAtriptan SUMAtriptan No SUMAtripta Succinate Succinate n 50 MG 50 MG Succinate 50 MG busPIRone busPIRone No busPIRone HCl 5 MG HCl 5 MG HCl 5 MG Lisinopril Lisinopril No 1{table QD Lisinopril 5 MG 5 MG t} 5 MG Citalopram Citalopram No 1{table QD Citalopram Hydrobromid Hydrobromid t} Hydrobromi e 10 MG e 10 MG de 10 MG SUMAtriptan SUMAtriptan No SUMAtripta Succinate Succinate n 50 MG 50 MG Succinate 50 MG busPIRone busPIRone No busPIRone HCl 5 MG HCl 5 MG HCl 5 MG Lisinopril Lisinopril No 1{table QD Lisinopril 5 MG 5 MG t} 5 MG Citalopram Citalopram No 1{table QD Citalopram Hydrobromid Hydrobromid t} Hydrobromi e 10 MG e 10 MG de 10 MG SUMAtriptan SUMAtriptan No SUMAtripta Succinate Succinate n 50 MG 50 MG Succinate 50 MG busPIRone busPIRone No busPIRone HCl 5 MG HCl 5 MG HCl 5 MG Lisinopril Lisinopril No 1{table QD Lisinopril 5 MG 5 MG t} 5 MG Citalopram Citalopram No 1{table QD Citalopram Hydrobromid Hydrobromid t} Hydrobromi e 10 MG e 10 MG de 10 MG SUMAtriptan SUMAtriptan No SUMAtripta Succinate Succinate n 50 MG 50 MG Succinate 50 MG busPIRone busPIRone No busPIRone HCl 5 MG HCl 5 MG HCl 5 MG DULoxetine DULoxetine No 1{capsu QD [...] Name Observation Time Observation Value Comments Source Oxygen saturation in 2023-05-01 15:35:00 100 /min [facility] Arterial blood by [facility] Pulse oximetry Branch Systolic blood 2023-05-01 15:35:00 167 mm[Hg] Univer sity of pressure [facility] Diastolic blood 2023-05-01 15:35:00 95 mm[Hg] Unive rsity [facility] Heart rate 2023-05-01 15:35:00 118 /min Universi [facility] Body temperature 2023-05-01 15:35:00 36.72 [facility] 2023-05-01 15:35:00 20 /min [facility] Body height 2023-05-01 15:35:00 152.4 cm [facility] Body weight 2023-05-01 15:35:00 102.059 kg [facility] BMI 2023-05-01 15:35:00 43.94 kg/m2 [facility] height 2023-02-13 10:20:00 60 [in_i] [facility] weight 2023-02-13 10:20:00 229 [lb_av] [facility] temperature 2023-02-13 10:20:00 98.2 [degF] [facility] bmi 2023-02-13 10:20:00 44.72 kg/m2 [facility] oximetry 2023-02-13 10:20:00 100 % [facility] respiratory rate 2023-02-13 10:20:00 18 /min Comm on [facility] blood pressure 2023-02-13 10:20:00 136 mm[Hg] Common [facility] - systolic [facility] blood pressure 2023-02-13 10:20:00 80 mm[Hg] [facility] - diastolic [facility] height 2023-02-06 14:00:00 60 [in_i] Common S pirit [facility] weight 2023-02-06 14:00:00 235 [lb_av] [facility] temperature 2023-02-06 14:00:00 97.5 [degF] [facility] bmi 2023-02-06 14:00:00 45.89 kg[facility]m2 [facility] oximetry 2023-02-06 14:00:00 99 % [facility] respiratory rate 2023-02-06 14:00:00 17 /min Comm on Spirit [facility] blood pressure 2023-02-06 14:00:00 136 mm[Hg] Common [facility] systolic [facility] blood pressure 2023-02-06 14:00:00 80 mm[Hg] Common [facility] diastolic [facility] height 2023-01-09 08:00:00 60 [in_i] [facility] weight 2023-01-09 08:00:00 235 [lb_av] [facility] bmi 2023-01-09 08:00:00 45.89 kg/m2 [facility] height 2023-01-01 08:00:00 60 [in_i] [facility] weight 2023-01-01 08:00:00 235 [lb_av] Common S pirit [facility] bmi 2023-01-01 08:00:00 45.89 kg/m2 [facility] S pirit [facility] height 2022-07-10 11:20:00 60 [in_i] [facility] weight 2022-07-10 11:20:00 233.6 [lb_av] [facility] temperature 2022-07-10 11:20:00 97.8 [degF] [facility] bmi 2022-07-10 11:20:00 45.62 kg/m2 [facility] oximetry 2022-07-10 11:20:00 99 % Common [facility] respiratory rate 2022-07-10 11:20:00 17 /min Comm on [facility] blood pressure 2022-07-10 11:20:00 132 mm[Hg] Common [facility] - systolic [facility] blood pressure 2022-07-10 11:20:00 84 mm[Hg] Common [facility] diastolic [facility] Systolic blood 2022-07-06 00:59:00 129 mm[Hg] Univer sity of [facility] Diastolic blood 2022-07-06 00:59:00 83 mm[Hg] Unive rsity [facility] Heart rate 2022-07-06 00:59:00 116 /min [facility] Body temperature 2022-07-06 00:59:00 36.89 Neeru [facility] 2022-07-06 00:59:00 16 /min Univ [facility] height 2022-07-06 00:59:00 152.4 cm [facility] Body weight 2022-07-06 00:59:00 99.791 kg [facility] BMI 2022-07-06 00:59:00 42.97 kg/m2 [facility] Oxygen saturation in 2022-07-06 00:59:00 99 /min [facility] blood by [facility] Pulse oximetry Branch height 2022-06-05 09:40:00 60 [in_i] [facility] weight 2022-06-05 09:40:00 227 [lb_av] [facility] temperature 2022-06-05 09:40:00 98.5 [degF] Common [facility] bmi 2022-06-05 09:40:00 44.33 kg/m2 [facility] oximetry 2022-06-05 09:40:00 98 % [facility] respiratory rate 2022-06-05 09:40:00 17 /min Comm on [facility] blood pressure 2022-06-05 09:40:00 134 mm[Hg] Common [facility] - systolic [facility] blood pressure 2022-06-05 09:40:00 76 mm[Hg] Common [facility] - diastolic [facility] Systolic blood 2022-05-23 00:00:00 142 mm[Hg] Univer sity of pressure [facility] Diastolic blood 2022-05-23 00:00:00 107 mm[Hg] Unive rsity of [facility] Heart rate 2022-05-23 00:00:00 99 /min Universi ty [facility] Body temperature 2022-05-23 00:00:00 36.56 Neeru [facility] 2022-05-23 00:00:00 16 /min [facility] O[facility] saturation in 2022-05-23 00:00:00 99 /min [facility] blood by [facility] Pulse oximetry Branch Body height 2022-05-22 22:49:00 152.4 cm Universi ty [facility] Body weight 2022-05-22 22:49:00 99.791 kg [facility] BMI 2022-05-22 22:49:00 42.97 kg/m2 [facility] height 2022-04-09 16:20:00 60 [in_i] Common [facility] weight 2022-04-09 16:20:00 222.8 [lb_av] Common [facility] temperature 2022-04-09 16:20:00 97.9 [degF] Common S [facility] bmi 2022-04-09 16:20:00 43.51 kg/m2 Common [facility] oximetry 2022-04-09 16:20:00 98 % Common [facility] respiratory rate 2022-04-09 16:20:00 18 /min Comm on [facility] blood pressure 2022-04-09 16:20:00 136 mm[Hg] Common [facility] - systolic [facility] blood pressure 2022-04-09 16:20:00 84 mm[Hg] Common [facility] - diastolic [facility] height 2022-03-12 14:40:00 60 [in_i] Common S [facility] weight 2022-03-12 14:40:00 222.2 [lb_av] [facility] temperature 2022-03-12 14:40:00 97.5 [degF] [facility] bmi 2022-03-12 14:40:00 43.39 kg/m2 Common S [facility] oximetry 2022-03-12 14:40:00 99 % Common S [facility] respiratory rate 2022-03-12 14:40:00 18 /min Comm on [facility] blood pressure 2022-03-12 14:40:00 128 mm[Hg] Common [facility] - systolic [facility] blood pressure 2022-03-12 14:40:00 74 mm[Hg] Common [facility] - diastolic [facility] height 2022-02-17 09:00:00 60 [in_i] Common [facility] weight 2022-02-17 09:00:00 224.6 [lb_av] [facility] temperature 2022-02-17 09:00:00 98.3 [degF] [facility] bmi 2022-02-17 09:00:00 43.86 kg/m2 Common S [facility] oximetry 2022-02-17 09:00:00 100 % Common S [facility] respiratory rate 2022-02-17 09:00:00 18 /min Comm on [facility] blood pressure 2022-02-17 09:00:00 140 mm[Hg] Common [facility] - systolic [facility] blood pressure 2022-02-17 09:00:00 80 mm[Hg] [facility] - diastolic [facility] Systolic blood 2021-12-08 20:05:00 149 mm[Hg] [place] [facility] Diastolic blood 2021-12-08 20:05:00 107 mm[Hg] Unive rsity of pressure [facility] Heart rate 2021-12-08 20:05:00 103 /min [facility] Body temperature 2021-12-08 20:05:00 36.72 Neeru [facility] Respiratory rate 2021-12-08 20:05:00 18 /min [facility] Body weight 2021-12-08 20:05:00 97.523 kg [facility] Oxygen saturation in 2021-12-08 20:05:00 98 /min [facility] Arterial blood by [facility] Pulse oximetry Branch Procedures Procedure Date / Time Performed Performing Clinician [facility] e ASSIGNMENT OF BENEFITS 2023-05-01 16:55:36 Doctor Unassigned, No [facility] Medical Branch POCT TEST 2023-05-01 16:24:00 Chung Wang [facility] XR KNEE 3 VW RIGHT 2023-05-01 16:02:12 Chung Wang [facility] CONSENT/REFUSAL FOR 2023-05-01 15:29:00 Doctor Unassigned, No [facility] [place] DIAGNOSIS AND Name Medical Branch TREATMENT CONSENT/REFUSAL FOR 2022-07-06 00:52:30 Doctor Unassigned, No [facility] [place] DIAGNOSIS AND Name Medical Branch TREATMENT REFERRAL- 2022-06-05 05:01:00 Doctor Unassigned, No [facility] REQUEST/RESPONSE [facility] POCT TEST 2022-05-23 00:04:00 Haleigh Stokes [facility] XR KNEE 3 VW RIGHT 2021-12-08 20:55:09 Khurram Red [facility] NOTICE OF PRIVACY 2021-12-08 19:59:53 Doctor Unassigned, No Univ [facility] PRACTICES [facility] CONSENT/REFUSAL FOR 2021-12-08 19:59:39 Doctor Unassigned, No [facility] [place] [facility] AND Name [facility] TREATMENT Plan [...] [facility] cervix (procedure) [code = 665168863] Future Scheduled [address] [facility] 00:[facility]:00 malignant neoplasm of [facility] cervix (procedure) [code = 648126991] Future Scheduled [address] [facility] 00:00:00 malignant ne[facility] cervix (procedure) [code = 310667665] Future Scheduled [address] [facility] 00:00:00 malignant neoplasm of [facility] cervix (procedure) [code = 965807658] Future Scheduled [address] [facility] 00:00:00 malignant neoplasm of [facility] cervix (procedure) [code = 426292396] Future Scheduled 2004 DTAP/TDAP/TD VACCINES [facility] I [...] Date/Time Type Type Clinicians Facility Department ID 2023-06-29 [facility] [id number] Common 14:50:00 Magy [id number] [facility] 2023-04-27 Outpatient Hendrickson, [facility] [id number] Common 11:48:00 Magy [id number] [facility] 2023-02-10 Outpatient Hendrickson, [facility] [id number] Common 16:35:05 Magy [id number] [facility] 2023-01-06 Outpatient Hendrickson, STL[facility] [id number] Common 15:13:02 Magy [facility] 2023-01-05 Outpatient Hendrickson, STLMLC ST[facility] [id number] Common 13:10:01 Magy [facility] 2022-12-31 Outpatient Hendrickson, STLMLC ST[facility] [id number] Common 13:53:01 Magy [facility] 2022-07-14 Outpatient Hendrickson, STL[facility]C ST[facility] [id number] Common 10:34:02 Magy [facility] 2022-07-08 Outpatient Hendrickson, STL[facility] ST[facility] [id number] Common 14:03:03 Magy [facility] 2022-06-03 Outpatient Hendrickson, STL[facility]C ST[facility] [id number] Common 15:09:02 Magy [facility] 2022-02-17 Outpatient Hendrickson, STL[facility]C ST[facility] [id number] Common 08:48:03 Magy [facility] 2023-09-12 2023-09-12 Outpatient [id number] PRIV PRIV [id number] [facility] 00:00:00 00:00:00 diyala_S [id number] Medic al 2023-06-03 2023-06-03 Patient Doctor RACHEL [id number] Univers 00:00:00 00:00:00 Secure Msg Unassigned, ОЛЬГА 350.1.13.10 [facility] 4.2.7.2.686 Ji as [id number] [facility] 044 Branch 2023-05-01 2023-05-01 Emergency Haseeb Caceres [facility] 1.2. [id number] [facility] 10:37:00 12:38:00 Chung Wang 350.1.13.10 ity of [place] 4.2.7.2.686 [place] [facility] [id number] [facility] 084 Branch 2023-05-01 2023-05-01 Emergency X FELIPE, [facility] ERT [id number] Univers 10:37:00 12:38:00 CHUNG dheerajmaribel [facility] 2023-05-01 2023-05-01 Patient Doctor RACHEL [id number] Univers 00:00:00 00:00:00 Secure Msg Unassigned, ОЛЬГА 350.1.13.10 [facility] [id number] [facility] [phone] [facility] 019 Branch 2023-03-19 2023-03-19 (TEL) STLMLC STLMLC [id number] Co mmon 00:00:00 00:00:00 Spirit [facility] 2023-03-02 2023-03-02 (TEL) STLMLC STLMLC [id number] Co mmon 00:00:00 00:00:00 Spirit [facility] 2023-02-13 2023-02-13 OFFICE STLMLC STLMLC [id number] Co mmon 00:00:00 00:00:00 VISIT Spirit ESTAB PT - CHI LEVEL 3 [facility] 2023-02-12 2023-02-12 (TEL) STLMLC STLMLC [id number] Co mmon 00:00:00 00:00:00 Spirit - [facility] 2023-02-06 2023-02-06 OFFICE STLMLC STLMLC [id number] Co mmon 00:00:00 00:00:00 VISIT Spirit ESTAB PT - CHI LEVEL 3 [facility] 2023-01-09 2023-01-09 OFFICE STLMLC STLMLC [id number] Co mmon 00:00:00 00:00:00 VISIT Spirit ESTAB PT - CHI LEVEL 3 [facility] 2023-01-08 2023-01-08 (TEL) STLMLC STLMLC [id number] Co mmon 00:00:00 00:00:00 Spirit - [facility] 2023-01-01 2023-01-01 OFFICE STLMLC STLMLC [id number] Co mmon 00:00:00 00:00:00 VISIT Spirit ESTAB PT - CHI LEVEL 4 [facility] 2023-01-01 2023-01-01 (TEL) STLMLC STLMLC [id number] Co mmon 00:00:00 00:00:00 [facility] 2022-12-25 2022-12-25 (TEL) STLMLC STLMLC [id number] Co mmon 00:00:00 00:00:00 [facility] 2022-11-13 2022-11-13 (TEL) STLMLC STLMLC [id number] Co mmon 00:00:00 00:00:00 [facility] 2022-09-09 2022-09-09 (TEL) STLMLC STLMLC [id number] Co mmon 00:00:00 00:00:00 [facility] 2022-07-10 2022-07-10 OFFICE STLMLC STLMLC [id number] Co mmon 00:00:00 00:00:00 VISIT EST Spir it PT LEVEL 3 - [facility] 2022-07-05 2022-07-05 Emergency X [facility] ERT [id number] Univers 19:58:00 21:17:00 LYNDA ity of [facility] 2022-07-05 2022-07-05 Emergency [facility] 1.2.840.114 [id number] Univers 19:58:00 21:17:00 Lynda MCCULLOUGH 350.1.13.10 ity [facility] 4.2.7.2.686 [facility] [id number] [facility] 084 Branch 2022-07-02 2022-07-02 (TEL) STLMLC STLMLC [id number] Co mmon 00:00:00 00:00:00 [facility] 2022-06-05 2022-06-05 Orders Doctor RAMOS [id number] [id number] Univers 00:00:00 00:00:00 Only Unassigned, ОЛЬГА 350.1.13.10 [facility] 4.2.7.2.686 [facility] [id number] [facility] 009 Branch 2022-06-05 2022-06-05 OFFICE STLMLC STLMLC [id number] Co mmon 00:00:00 00:00:00 VISIT EST Spir it PT LEVEL 3 - [facility] 2022-05-22 2022-05-22 Emergency X [facility] ERT [id number] Univers 17:51:00 19:27:00 HALEIGH esquedamaribel [facility] 2022-05-22 2022-05-22 Emergency [facility] [id number] Univers 17:51:00 19:27:00 Haleigh MCCULLOUGH 350.1.13.10 i ty [facility] 4.2.7.2.686 [facility] [phone] [place] [address] Branch 2022-04-18 2022-04-18 Telephone JASWINDER Rogers [id number] 00:00[facility] 00:00:00 [facility] 2022-04-16 2022-04-16 (TEL) STLMLC STLMLC [id number] Co mmon 00:00:00 00:00:00 Spirit - [facility] 2022-04-15 2022-04-15 (TEL) STLMLC STLMLC [id number] Co mmon 00:00:00 00:00:00 Spirit - [facility] 2022-04-09 2022-04-09 OFFICE STLMLC STLMLC [id number] Co mmon 00:00:00 00:00:00 VISIT Spirit ESTAB PT - CHI LEVEL 4 [facility] 2022-03-12 2022-03-12 OFFICE STLMLC STLMLC [id number] Co mmon 00:00:00 00:00:00 VISIT Spirit ESTAB PT - CHI LEVEL 4 [facility] 2022-02-17 2022-02-17 OFFICE STLMLC STLMLC [id number] Co mmon 00:00:00 00:00:00 VISIT NEW Spir it PT LEVEL 4 - [facility] 2021-12-08 2021-12-08 Emergency X [facility] ERT [id number] Univers 14:10:00 16:49:00 ANIBAL kramer [facility] 2021-12-08 2021-12-[address] [facility] [id number] Univers 14:10:00 16:49:00 Anibal MCCULLOUGH 350.1.13.10 i ty braden CONTRERAS 4.2.7.2.686 [facility] [id number] [place] [id number] Branch Results Test Description Test Time Test Comments Results Result Comments Source POCT TEST 2023-05-01 16:24:00 Test Item Value Reference Range Interpretation Comme nts POCT PREG (test code = 1605) Negative On board controls acceptable with C Line (test code = 3574) Yes POCT PREG LOT # (test code = 3575) [id number] POCT PREG TEST DATE (test code = 3576) 08/21/2024 Lab Interpretation (test code = 94436-7) [id number] 00:04:00 Test Item Value Reference Range Interpretation Comments POCT PREG (test code = 1605) Negative On board controls acceptable with Positive C Line (test code = 3574) POCT PREG LOT # (test code = 3575) [id number] POCT PREG TEST DATE (test 09/15/2023 code = 3576) Lab Interpretation (test code = Normal 90975-7) [facility], [id number] 11:39:27SPECIMEN NUMBER: [id number] CULTURE, URINE SPECIMEN NUMBER: [id number] SPECIMEN COMMENT: URINE SOURCE:URINE REPORT STATUS: FINAL ISOLATE NUMBER 1: ORGANISM: 01/25/2022 <10,000 CFU/ML YEAST UNLESS OTHERWISE INDICATED, ALL TESTING PERFORMED [facility] [address] [place] [id number] SENIOR RADIATION PROTECTION TECHNICIAN: VICTORINO SPIVEY M.D. CLIA NUMBER [id number] [place]. [id number]
[2023-10-12] MEDS ORDERED: DIPHENHYDRAMINE 25 MG TAB/CAP ONE (20:57)
[2023-10-12] MEDS ORDERED: ACETAMINOPHEN 500 MG TAB ONE (20:57)
[2023-10-12] MEDS ORDERED: IBUPROFEN 400 MG TAB ONE (20:58)
[2023-10-12] MEDS ORDERED: GUAIFENESIN/DM 5 ML UCUP ONE (20:58)
[2023-10-12] MEDS ORDERED: PROMETHAZINE 25 MG TABLET ONE (20:58)
[2023-10-12 21:36] LABS: SARS-COV-2 RT PCR NEGATIVE (NEGATIVE)
--- NOTE | 2023-10-12 22:06 | EDPHYS ---
Physician Documentation [facility] Name: Selena Penn Age: 38 yrs Sex: Female : 1985 Arrival Date: 10/12/2023 Time: 20:18 Bed IW3 Private MD: ED Physician Deandre Roach HPI: 10/12 20:24 This 38 yrs old Female presents to ER via Unassigned with complaints of sp4 Fever, Flu Symptoms. 20:24 PMH - Allergies: Latex, Natural Rubber (Hives); SHELLFISH (Anaphylaxis) Home Meds: sp4 None; PMHx: Ectopic ; Gastric Reflux; Migraines; sciatica; UTI PSHx: section;. 20:35 Patient is 38-year-old female presents with acute onset of 2 weeks of cough, sore sp4 throat, hoarseness of the voice, posterior drainage in the pharynx, body aches and also vomiting last night. Patient has positive sick contact with influenza.. Patient denied fevers, reported history of left tubal removal and also right tubal ligation. Patient has history of ectopic and left tubal resection. Historical: - Allergies: 20:31 Latex; jb4 20:31 SHELLFISH (Anaphylaxis); jb4 - PMHx: 20:31 ectopic ; Migraines; sciatica; Gastric Reflux; UTI; jb4 - PSHx: 20:31 section; jb4 - Immunization history:: Adult Immunizations up to date. - Social history:: Smoking status: Patient denies any tobacco usage or history of. - Family history:: not pertinent. ROS: 20:35 Constitutional: Negative for fever, chills, and weight loss, positive cough, positive sp4 sore throat, positive body aches, positive posterior nasal drainage, positive nasal drainage, positive vomiting 20:35 All other systems are negative, Exam: 20:35 Constitutional: This is a well developed, well nourished patient who is awake, alert, sp4 and in no acute distress. Head/Face: Normocephalic, atraumatic. Eyes: Pupils equal round and reactive to light, extra-ocular motions intact. Lids and lashes normal. Conjunctiva and sclera are not injected. Cornea within normal limits. Periorbital areas with no swelling, redness, or edema. ENT: Nares patent. No nasal discharge, no septal abnormalities noted. Tympanic membranes are normal and external auditory canals are clear. There is voice hoarseness, there is bilateral tonsillar erythema and enlargement, uvula erythema, bilateral pharyngeal erythema. Neck: Trachea midline, no thyromegaly or masses palpated, and no cervical lymphadenopathy. Supple, full range of motion without nuchal rigidity, or vertebral point tenderness. Chest/axilla: Normal chest wall appearance and motion. Nontender with no deformity. No lesions are appreciated. Cardiovascular: Regular rate and rhythm with a normal S1 and S2. No gallops, murmurs, or rubs. Normal PMI, no JVD. No pulse deficits. Respiratory: Lungs have equal breath sounds bilaterally, clear to auscultation and percussion. No rales, rhonchi or wheezes noted. No increased work of breathing, no retractions or nasal flaring. Abdomen/GI: Soft, non-tender, with normal bowel sounds. No distension or tympany. No guarding or rebound. No evidence of tenderness throughout. Back: No spinal tenderness. No costovertebral tenderness. Skin: Warm, dry with normal turgor. Normal color with no rashes, no lesions, and no evidence of cellulitis. MS/ Extremity: Pulses equal, no cyanosis. Neurovascular intact. Full, normal range of motion. Neuro: Awake and alert, GCS 15, oriented to person, place, time, and situation. Cranial nerves II-XII grossly intact. Motor strength 5/5 in all extremities. Sensory grossly intact. Psych: Awake, alert, with orientation to person, place and time. Behavior, mood, and affect are within normal limits Vital Signs: 20:29 BP 154 / 112; Pulse 101; Resp 18; Temp 98.4(O); Pulse Ox 95% on R/A; Weight 97.52 kg jb4 (R); Height 5 ft. 0 in. (R); 20:29 Body Mass Index 41.99 (97.52 kg, 152.4 cm) jb4 MDM: 21:03 Patient medically screened. sp4 22:08 Differential Diagnosis altered mental status, sepsis, flu. Data reviewed: vital signs, sp4 nurses notes, lab test result(s), Flu: negative. ED course: Negative influenza, negative COVID, negative Strep . 10/12 20:25 Order name: COVID-19/FLU A+B; Complete Time: 22:04 sp4 10/12 20:34 Order name: Strep sp4 10/12 20:51 Order name: Glucose, Ancillary Testing; Complete Time: 22:04 EDMS Administered Medications: 20:47 Drug: Dextromethorphan-Guaifenesin PO Liquid 10 mg-100 mg/5 mL 10 ml PO once Route: PO; jb4 20:47 Drug: Ibuprofen PO 800 mg PO once Route: PO; jb4 20:47 Drug: Acetaminophen PO 1000 mg PO once Route: PO; jb4 20:47 Drug: diphenhydrAMINE PO 25 mg PO once Route: PO; jb4 20:47 Drug: Promethazine PO 25 mg PO once Route: PO; jb4 Disposition Summary: 10/12/23 22:05 Discharge Ordered Notes: Location: Home sp4 Problem: new sp4 Symptoms: have improved sp4 Condition: Stable sp4 Diagnosis - Acute laryngitis sp4 Followup: sp4 - With: Private Physician - When: 7 - 10 days - Reason: Recheck today's complaints Discharge Instructions: - Discharge Summary Sheet sp4 - Laryngitis sp4 Forms: - Patient Portal Instructions sp4 Prescriptions: - dextromethorphan-guaifenesin 10-200 mg Oral capsule - take 2 capsule ORAL route every 6 hours as needed for cough; 30 capsule; sp4 Refills: 0, Product Selection Permitted - Ibuprofen 800 mg Oral Tablet - take 1 tablet ORAL route every 8 hours As needed take with food; 30 tablet; sp4 Refills: 0, Product Selection Permitted - Zithromax Z-Ezra 250 mg Oral Tablet - take 1 tablet ORAL route as directed for 5 days Day 1 - take two (2) tablets sp4 one time. Day 2, 3, 4 , 5 take one (1) tablet once daily.; 6 tablet; Refills: 0, Product Selection Permitted - promethazine 25 mg Oral tablet - take 1 tablet ORAL route every 6 hours As needed PRN nausea; 30 tablet; sp4 Refills: 0, Product Selection Permitted Signatures: Dispatcher [employer] EDMS Javier Hardin RN RN jb4 Deandre Roach MD MD sp4
--- NOTE | 2023-10-12 22:06 | ER ---
Nurse's Notes [facility] Name: Selena Penn Age: 38 yrs Sex: Female : 1985 Arrival Date: 10/12/2023 Time: 20:18 Bed IW3 Private MD: Diagnosis: Acute laryngitis Presentation: 10/12 20:29 Chief complaint: Patient states: I have had laryngitis for the past 2 weeks, I started jb4 feeling back when I got home from vacation. Body aches started last night no nausea or vomiting, no fever. Coronavirus screen: Client presents with at least one sign or symptom that may indicate coronavirus-19. Standard/surgical mask placed on the client. Provider contacted for isolation considerations. Ebola Screen: No symptoms or risks identified at this time. Initial Sepsis Screen: Does the patient meet any 2 criteria? No. Patient's initial sepsis screen is negative. Does the patient have a suspected source of infection? No. Patient's initial sepsis screen is negative. Risk Assessment: Do you want to hurt yourself or someone else? Patient reports no desire to harm self or others. Onset of symptoms was October 12, 2023. Transition of care: patient was not received from another setting of care. 20:29 Method Of Arrival: Ambulatory jb4 20:29 Acuity: SAMSON 3 jb4 Triage Assessment: 20:31 General: Appears in no apparent distress. uncomfortable, Behavior is calm, cooperative, jb4 appropriate for age. Pain: Complains of pain in throat Pain does not radiate. Pain currently is 8 out of 10 on a pain scale. EENT: Throat is reddened has enlarged tonsils bilaterally with gag reflex present. Neuro: Level of Consciousness is awake, alert, obeys commands, Oriented to person, place, time, situation. Cardiovascular: Patient's skin is warm and dry. Respiratory: Reports cough that is non-productive, persistent. GI: No signs and/or symptoms were reported involving the gastrointestinal system. : No signs and/or symptoms were reported regarding the genitourinary system. Derm: Skin is intact, Skin is pink, warm \T\ dry. Musculoskeletal: Circulation, motion, and sensation intact. Range of motion: intact in all extremities. Historical: - Allergies: 20:31 Latex; jb4 20:31 SHELLFISH (Anaphylaxis); jb4 - PMHx: 20:31 ectopic ; Migraines; sciatica; Gastric Reflux; UTI; jb4 - PSHx: 20:31 section; jb4 - Immunization history:: Adult Immunizations up to date. - Social history:: Smoking status: Patient denies any tobacco usage or history of. - Family history:: not pertinent. Vital Signs: 20:29 BP 154 / 112; Pulse 101; Resp 18; Temp 98.4(O); Pulse Ox 95% on R/A; Weight 97.52 kg jb4 (R); Height 5 ft. 0 in. (R); 20:29 Body Mass Index 41.99 (97.52 kg, 152.4 cm) jb4 ED Course: 20:23 Patient arrived in ED. gm2 20:24 Deandre Roach MD is Attending Physician. sp4 20:31 Triage completed. jb4 20:31 Arm band placed on right wrist. jb4 20:40 Strep Sent. jb4 20:40 COVID-19/FLU A+B Sent. jb4 Administered Medications: 20:47 Drug: Dextromethorphan-Guaifenesin PO Liquid 10 mg-100 mg/5 mL 10 ml PO once Route: PO; jb4 20:47 Drug: Ibuprofen PO 800 mg PO once Route: PO; jb4 20:47 Drug: Acetaminophen PO 1000 mg PO once Route: PO; jb4 20:47 Drug: diphenhydrAMINE PO 25 mg PO once Route: PO; jb4 20:47 Drug: Promethazine PO 25 mg PO once Route: PO; jb4 Outcome: 22:05 Discharge ordered by . sp4 22:52 Patient left the ED. hb Signatures: Mariama Salazar RN RN Javier Smyth RN RN jb4 Deandre Roach MD MD sp4 Eugenie Mrakham gm2
[2023-10-12 23:47] VITALS: BP 154/112; TEMP 98.4; O2SAT 95
== END 2023-10-12 22:52 | disposition home or self-care (01) ==
LOC: ER 20:18
DX: J04.0 Acute laryngitis (principal); Z11.52 Encounter for screening for COVID-19; Z91.040 Latex allergy status; Z91.013 Allergy to seafood
CPT/HCPCS: 0240U; 82947; 87070; 87081; 99283; Q0169

== ENCOUNTER → 2023-12-08 | Emergency (ER) | payer OTHER, SELFPAY ==
[~2023-12-08] MED LIST: AMOX/K CLAV 875 MG TAB ONE; dexAMETHasone 10 MG/ML VIAL ONE
--- NOTE | 2023-12-09 00:09 | ER ---
Nurse's Notes [facility] Name: Selena Penn Age: 38 yrs Sex: Female : 1985 Arrival Date: 12/08/2023 Time: 23:40 Bed 11 Private MD: Diagnosis: Acute sinusitis, unspecified Presentation: 12/08 23:59 Chief complaint: Patient states: COUGH, CONGESTION GOT WORST TODAY. Coronavirus screen: j7 congestion, cough unrelated to allergies. Ebola Screen: No symptoms or risks identified at this time. Initial Sepsis Screen: Does the patient meet any 2 criteria? No. Patient's initial sepsis screen is negative. Does the patient have a suspected source of infection? No. Patient's initial sepsis screen is negative. Risk Assessment: Do you want to hurt yourself or someone else? Patient reports no desire to harm self or others. 23:59 Method Of Arrival: Ambulatory [facility] 23:59 Acuity: SAMSON 5 jj7 Triage Assessment: 12/09 00:07 General: Appears in no apparent distress. uncomfortable, Behavior is calm, cooperative, jj7 appropriate for age. Pain: Denies pain. Respiratory: Reports cough that is dry, hacking, Breath sounds are clear bilaterally. Historical: - Allergies: 00:07 Latex; jj7 00:07 SHELLFISH (Anaphylaxis); jj7 - PMHx: 00:07 ectopic ; Gastric Reflux; Migraines; sciatica; UTI; jj7 - PSHx: 00:07 section; jj7 - Immunization history:: Client reports having NOT received the Covid vaccine. Flu vaccine is not up to date. - Social history:: Smoking status: Patient denies any tobacco usage or history of. Patient uses alcohol, occasionally. Patient/guardian denies using street drugs. Screenin:10 [facility] ED Fall Risk Assessment (Adult) History of falling in the last 3 months, jj7 including since admission No falls in past 3 months (0 pts) Confusion or Disorientation No (0 pts) Intoxicated or Sedated No (0 pts) Impaired Gait No (0 pts) Mobility Assist Device Used No (0 pt) Altered Elimination No (0 pt) Score/Fall Risk Level 0 - 2 = Low Risk Oriented to surroundings, Maintained a safe environment, Educated pt \T\ family on fall prevention, incl call for assistance when getting out of bed. Abuse screen: Denies threats or abuse. Nutritional screening: No deficits noted. Tuberculosis screening: No symptoms or risk factors identified. Assessment: 00:10 Reassessment: SEE TRIAGE ASSESSMENT. Cardiovascular: Capillary refill < 3 seconds. jj7 01:00 Reassessment: Patient appears in no apparent distress at this time. Patient and/or pf1 family updated on plan of care and expected duration. Pain level reassessed. Patient is alert, oriented x 3, equal unlabored respirations, skin warm/dry/pink. Patient states feeling better. Patient states symptoms have improved. Vital Signs: 12/08 23:59 BP 150 / 97; Pulse 92; Resp 16; Temp 97.9; Pulse Ox 100% ; Weight 113.4 kg; jj7 12/09 01:00 BP 141 / 89; Pulse 89; Resp 16; Pulse Ox 100% on R/A; pf1 ED Course: 12/08 23:42 Patient arrived in ED. jj6 23:44 Dara Llamas FNP-C [facility] kb 23:44 Deandre Roach MD is Attending Physician. kb 12/09 00:07 Triage completed. jj7 00:07 Arm band placed on right wrist. jj7 00:10 Patient has correct armband on for positive identification. jj7 00:10 No provider procedures requiring assistance completed. Patient did not have IV access jj7 during this emergency room visit. 01:20 Provided Education on: prescription. pf1 Administered Medications: 00:50 Drug: Amoxicillin-Clavulanate PO 875 mg PO once Route: PO; pf1 01:20 Follow up: Response: No adverse reaction pf1 00:50 Drug: Dexamethasone IM 10 mg IM once Route: IM; Site: right gluteus; pf1 01:20 Follow up: Response: No adverse reaction; Marked relief of symptoms pf1 Medication: 00:10 VIS not applicable for this client. jj7 Outcome: 00:09 Discharge ordered by . kb 01:10 Discharged to home ambulatory, pf1 01:10 Condition: stable pf1 01:10 Discharge instructions given to patient, Instructed on discharge instructions, follow up and referral plans. Demonstrated understanding of instructions, follow-up care, medications, Prescriptions given X 1, 01:20 Patient left the ED. pf1 Signatures: Dara Llamas, [employer]-Grazyna Carter jj6 Caitlyn Holley RN RN jj7 Gisel San RN RN pf1
--- NOTE | 2023-12-09 00:09 | EDPHYS ---
Physician Documentation [facility] Name: Selena Penn Age: 38 yrs Sex: Female : 1985 Arrival Date: 12/08/2023 Time: 23:40 Bed 11 Private MD: ED Physician Deandre Roach HPI: 12/09 00:21 This 38 yrs old Female presents to ER via Ambulatory with complaints of Cough, kb Congestion, Sore Throat. 00:21 Patient is a 38-year-old female who presents for cough, congestion, sinus pain, sore kb throat, hoarse voice that started the week of . States the symptoms started to get better and then they came back, went to PCP at the beginning of November and was given a course of steroids and Tessalon Perles which helped for a little while but then symptoms got worse again.. Historical: - Allergies: 00:07 Latex; jj7 00:07 SHELLFISH (Anaphylaxis); jj7 - PMHx: 00:07 ectopic ; Gastric Reflux; Migraines; sciatica; UTI; jj7 - PSHx: 00:07 section; jj7 - Immunization history:: Client reports having NOT received the Covid vaccine. Flu vaccine is not up to date. - Social history:: Smoking status: Patient denies any tobacco usage or history of. Patient uses alcohol, occasionally. Patient/guardian denies using street drugs. ROS: 00:19 Constitutional: Negative for fever, chills, and weight loss, kb 00:19 ENT: Positive for sinus congestion, sinus pain, sore throat, 00:19 Respiratory: Positive for cough, 00:19 All other systems are negative, Exam: 00:19 Constitutional: This is a well developed, well nourished patient who is awake, alert, kb and in no acute distress. Head/Face: Normocephalic, atraumatic. ENT: Moist Mucous membranes Cardiovascular: Regular rate Respiratory: Respirations even and unlabored. No increased work of breathing. Talking in full sentences Abdomen/GI: Soft, non-tender. No distention Skin: Warm, dry with normal turgor. Normal color. MS/ Extremity: Pulses equal, no cyanosis. Neurovascular intact. Full, normal range of motion. Neuro: Awake and alert, GCS 15, oriented to person, place, time, and situation. Moves all extremities. Normal gait. Vital Signs: 12/08 23:59 BP 150 / 97; Pulse 92; Resp 16; Temp 97.9; Pulse Ox 100% ; Weight 113.4 kg; jj7 12/09 01:00 BP 141 / 89; Pulse 89; Resp 16; Pulse Ox 100% on R/A; pf1 MDM: 12/08 23:46 Patient medically screened. kb 12/09 00:20 Differential Diagnosis: Other Flu, COVID, strep, pharyngitis, laryngitis, sinusitis, kb URI, pneumonia. Data reviewed: vital signs, nurses notes. Test considered but Not performed: Labs: COVID, flu and strep test considered but result would not change plan of care.. X-ray: Chest x-ray considered but lungs clear bilaterally, respirations even and unlabored, oxygen saturation 100% on room air.. Counseling: I had a detailed discussion with the patient and/or guardian regarding the historical points, exam findings, and any diagnostic results supporting the discharge/admit diagnosis, the need for outpatient follow up, a family practitioner, to return to the emergency department if symptoms worsen or persist or if there are any questions or concerns that arise at home. Administered Medications: 00:50 Drug: Amoxicillin-Clavulanate PO 875 mg PO once Route: PO; pf1 01:20 Follow up: Response: No adverse reaction pf1 00:50 Drug: Dexamethasone IM 10 mg IM once Route: IM; Site: right gluteus; pf1 01:20 Follow up: Response: No adverse reaction; Marked relief of symptoms pf1 Disposition: 05:32 Co-signature as Attending Physician, Deandre Roach MD I agree with the assessment sp4 and plan of care. I reviewed the patient's care provided by the Advanced Practice Provider and agree with the diagnosis and treatment plan. Disposition Summary: 12/09/23 00:09 Discharge Ordered Notes: Location: Home Condition: Stable kb Diagnosis - Acute sinusitis, unspecified kb Followup: kb - With: Emergency Department - When: As needed - Reason: Worsening of condition Followup: kb - With: Private Physician - When: 2 - 3 days - Reason: Recheck today's complaints, Continuance of care, Re-evaluation by your physician Discharge Instructions: - Discharge Summary Sheet kb - Sinusitis, Adult, [id number] kb Forms: - Medication Reconciliation Form kb - Thank You Letter kb - Antibiotic Education kb - Prescription Opioid Use kb - Patient Portal Instructions kb - Leadership Thank You Letter kb Prescriptions: - Augmentin 875-125 mg Oral Tablet - take 1 tablet ORAL route every 12 hours for 10 days; 20 tablet; Refills: 0, kb Product Selection Permitted Signatures: Dispatcher [employer] EDMI Dara Llamas, FLORAL DESIGNER-C FLORAL DESIGNER-Caitlyn Silva RN RN jj7 Gisel San RN RN pf1 Deandre Roach MD MD sp4 Corrections: (The following items were deleted from the chart) 00:12/08 23:45 Influenza Screen (A \T\ B)+BA.LAB.BRZ ordered. EDMS EDMS 12/09 00:12/08 23:45 SARS-COV-2 RT PCR+MOL.LAB.BRZ ordered. EDMS EDMS 12/09 00:12/08 23:45 Group A Streptococcus Rapid Sc+BA.LAB.BRZ ordered. EDMS EDMS
[2023-12-09 05:55] VITALS: BP 150/97; TEMP 97.9; O2SAT 100
== END ==
LOC: ER 23:40
DX: J01.90 Acute sinusitis, unspecified (principal); Z91.013 Allergy to seafood; Z91.040 Latex allergy status; Z28.310 Unvaccinated for COVID-19
CPT/HCPCS: 96372; 99284

== ENCOUNTER → 2024-02-02 | Emergency (ER) | payer OTHER ==
--- NOTE | 2024-02-02 18:28 | RAD REPORT ---
EXAM DESCRIPTION: RAD - Ankle Left 3 View - 02/02/2024 6:23 pm CLINICAL HISTORY: injury COMPARISON: No comparisons FINDINGS: Mild soft tissue swelling affects the ankle. Small calcaneal spurs. No fracture.
--- NOTE | 2024-02-02 18:35 | EDPHYS ---
Physician Documentation [facility] Name: Selena Penn Age: 39 yrs Sex: Female : 1985 Arrival Date: 02/02/2024 Time: 17:15 Bed 12 Private MD: ED Physician Nathan Grant HPI: 02/01 17:38 This 39 yrs old Female presents to ER via Wheelchair with complaints of Fall ec2 Injury, Ankle Injury - left. 17:38 Patient arrives after twisting her left ankle. Patient reports that she injured her ec2 ankle 2 days ago. Denies having issues with ambulation.. 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 Flu vaccine is not up to date. - Social history:: Smoking status: Patient denies any tobacco usage or history of. ROS: 17:38 Constitutional: as per hpi ec2 Exam: 17:38 Constitutional: GEN: NAD Head: atraumatic Eyes: EOMI Ears: External ears are ec2 normal. CV: regular rate LUNGS: no respiratory distress ABD: non-distended SKIN: no evidence of rashes MSK: TTP to the lateral and medial malleoli of the L ankle. Intact distal neurovascular status NEURO: moves all extremities equally Vital Signs: 17:30 BP 135 / 95; Pulse 84; Resp 17; Temp 98.2; Pulse Ox 100% ; Weight 95.25 kg; Height 5 ap3 ft. 0 in. ; Pain 8/10; 19:36 BP 122 / 80; Pulse 76; Resp 16; Temp 98.3(O); Pulse Ox 99% on R/A; Pain 6/10; tl4 17:30 Body Mass Index 41.01 (95.25 kg, 152.4 cm) ap3 17:30 Pain Scale: Adult ap3 19:36 Pain Scale: Adult tl4 MDM: 17:37 Patient medically screened. ec2 17:38 Data reviewed: vital signs. ED course: Patient arrives today for left ankle injury. ec2 Examination remarkable for MSK findings as above. Will obtain radiograph of the left ankle. Evaluating for ankle fracture, additionally considering sprain. Will place Parth wrap on the patient as well.. 18:34 ED course: Negative ankle x-ray. Will discharge home. Presentation consistent with ec2 ankle sprain. Return precautions given.. 02/01 17:38 Order name: Ankle Left 3 View XRAY; Complete Time: 18:33 ec2 02/01 17:38 Order name: Parth Wrap; Complete Time: 19:36 ec2 Administered Medications: No medications were administered Disposition Summary: 02/02/24 18:34 Discharge Ordered Notes: Location: Home ec2 Problem: new ec2 Symptoms: are unchanged ec2 Condition: Stable ec2 Diagnosis - Sprain of other ligament of left ankle ec2 Followup: ec2 - With: Private Physician - When: - Reason: Re-evaluation by your physician Discharge Instructions: - Discharge Summary Sheet ec2 - Ankle Sprain, [id number] ec2 Forms: - Medication Reconciliation Form ec2 - Thank You Letter ec2 - Antibiotic Education ec2 - Prescription Opioid Use ec2 - Patient Portal Instructions ec2 - Leadership Thank You Letter ec2 Signatures: Dispatcher [employer] Meena Aguillon RN RN ap3 Nathan Grant MD MD ec2 Lane Cantrell RN RN tl4
--- NOTE | 2024-02-02 18:35 | ER ---
Nurse's Notes [facility] Name: Selena Penn Age: 39 yrs Sex: Female : 1985 Arrival Date: 02/02/2024 Time: 17:15 Bed 12 Private MD: Diagnosis: Sprain of other ligament of left ankle Presentation: 02/01 17:28 Chief complaint: Patient states: she was cleaning, and fell two days ago injuring her ap3 left ankle. patient rates her pain as a 8/10 on the pain scale at this time. Coronavirus screen: At this time, the client does not indicate any symptoms associated with coronavirus-19. Ebola Screen: No symptoms or risks identified at this time. Risk Assessment: Do you want to hurt yourself or someone else? Patient reports no desire to harm self or others. Onset of symptoms was January 31, 2024. 17:28 Method Of Arrival: Wheelchair ap3 17:28 Acuity: SAMSON 4 ap3 17:30 Initial Sepsis Screen: Does the patient meet any 2 criteria? No. Patient's initial ap3 sepsis screen is negative. Does the patient have a suspected source of infection? No. Patient's initial sepsis screen is negative. Triage Assessment: 17:30 General: Appears in no apparent distress. Behavior is calm, cooperative, appropriate ap3 for age. Pain: Complains of pain in left lateral ankle and left medial ankle Quality of pain is described as aching, Pain began suddenly, 2-3 days ago. Neuro: Level of Consciousness is awake, alert, obeys commands, Oriented to person, place, time, situation, Appropriate for age. Cardiovascular: Patient's skin is warm and dry. Respiratory: Airway is patent Respiratory effort is even, unlabored, Respiratory pattern is regular, symmetrical. 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 Flu vaccine is not up to date. - Social history:: Smoking status: Patient denies any tobacco usage or history of. Screenin:31 Abuse screen: Denies threats or abuse. Nutritional screening: No deficits noted. ap3 Tuberculosis screening: No symptoms or risk factors identified. 19:07 [facility] ED Fall Risk Assessment (Adult) History of falling in the last 3 months, tl4 including since admission Yes- single mechanical fall (1 pt) Confusion or Disorientation No (0 pts) Intoxicated or Sedated No (0 pts) Impaired Gait No (0 pts) Mobility Assist Device Used No (0 pt) Altered Elimination No (0 pt) Score/Fall Risk Level 0 - 2 = Low Risk Oriented to surroundings, Maintained a safe environment, Educated pt \T\ family on fall prevention, incl call for assistance when getting out of bed, Assessed \T\ reinforced patient's understanding of fall precautions, Hourly rounding (assess needs \T\ fall precautionary measures) done, Used ambulatory aids as needed (educated on \T\ assisted with), Used gait belt as appropriate. Assessment: 19:06 General: Appears in no apparent distress. Behavior is calm, cooperative. Pain: tl4 Complains of pain in left foot. Neuro: Level of Consciousness is awake, alert, obeys commands, Oriented to person, place, time, situation, Speech is normal, Facial symmetry appears normal. Cardiovascular: Capillary refill < 3 seconds Patient's skin is warm and dry. Respiratory: Breath sounds are clear bilaterally. Denies cough, shortness of breath. GI: No deficits noted. No signs and/or symptoms were reported involving the gastrointestinal system. : No deficits noted. No signs and/or symptoms were reported regarding the genitourinary system. EENT: No deficits noted. No signs and/or symptoms were reported regarding the EENT system. Derm: No deficits noted. No signs and/or symptoms reported regarding the dermatologic system. Musculoskeletal: Reports pain in left foot. Vital Signs: 17:30 BP 135 / 95; Pulse 84; Resp 17; Temp 98.2; Pulse Ox 100% ; Weight 95.25 kg; Height 5 ap3 ft. 0 in. ; Pain 8/10; 19:36 BP 122 / 80; Pulse 76; Resp 16; Temp 98.3(O); Pulse Ox 99% on R/A; Pain 6/10; tl4 17:30 Body Mass Index 41.01 (95.25 kg, 152.4 cm) ap3 17:30 Pain Scale: Adult ap3 19:36 Pain Scale: Adult tl4 ED Course: 17:18 Patient arrived in ED. mr 17:19 Nathan Grant MD is Attending Physician. ec2 17:29 Triage completed. ap3 17:31 Arm band placed on right wrist. ap3 18:25 Ankle Left 3 View XRAY In Process Unspecified. EDNY 19:05 Lane Cantrell, RN is Primary Nurse. tl4 19:07 Patient has correct armband on for positive identification. Bed in low position. Call tl4 light in reach. Side rails up X 1. Provided Education on: ED process. Client placed on continuous cardiac and pulse oximetry monitoring. NIBP monitoring applied. Door closed. Lights dimmed. Moved to private room. 19:08 No provider procedures requiring assistance completed. Patient did not have IV access tl4 during this emergency room visit. 19:38 Parth wrap to left ankle. tl4 Administered Medications: No medications were administered Medication: 19:07 VIS not applicable for this client. tl4 Outcome: 18:34 Discharge ordered by . ec2 19:37 Discharged to home via wheelchair, with family, tl4 19:37 Condition: stable 19:37 Discharge instructions given to patient, Instructed on discharge instructions, follow up and referral plans. medication usage, Demonstrated understanding of instructions, follow-up care, medications, 19:39 Patient left the ED. tl4 Signatures: Dispatcher [employer] [facility] BergBetina, Reg Reg mr Meena Lemons, RN RN ap3 Nathan Grant MD MD ec2 Lane Cantrell, RASHAAD RN tl4
[2024-02-02 20:49] VITALS: BP 135/95; TEMP 98.2; O2SAT 100
== END ==
LOC: ER 17:15
DX: S93.492A Sprain of other ligament of left ankle, initial encounter (principal); Z91.013 Allergy to seafood; Z91.040 Latex allergy status
CPT/HCPCS: 99283

== ENCOUNTER 2024-10-20 16:27 | Emergency (ER) | payer OTHER ==
[2024-10-20 17:34] LABS: SARS-CoV-2 Antigen CONTROL BLUE LINE VIS/BG OK
[2024-10-20 17:35] LABS: SARS-CoV-2 Antigen Rapid Res Negative (Negative)
--- NOTE | 2024-10-20 20:22 | RAD REPORT ---
EXAM: CT Soft Tissue Neck W/Contr INDICATION: [facility] MAIN n/a neck pain, pain with swallowing Bed Name: 11 TECHNIQUE: Helical CT examination of the neck with IV contrast. Sagittal and coronal reformations wer e generated. This exam was performed according to our departmental dose-optimization program, which includes automated exposure control, adjustment of the mA and/or kV according to patient size and/or use of iterative reconstruction technique. COMPARISON: None. FINDINGS: Mucosal spaces: Mild prominence of the palatine tonsillar tissue more so on the right, without signif icant inflammatory changes in the adjacent parapharyngeal fat, or abnormal collections. Nasopharynx, oropharynx, oral cavity, larynx and hypopharynx are otherwise normal. No suspicious mass es. Epiglottis is normal in configuration. True vocal cords cords are normally situated. Piriform sinuses are well-aerated. Lymph Nodes: Mildly prominent bilateral cervical lymph nodes, largest at level IIa on the right measu ring 1.2 cm in short axis, likely reactive. Salivary Glands: Unremarkable. Thyroid Gland: Normal Included Intracranial Structures: Normal Included Orbits: Normal Paranasal Sinuses: Predominantly clear Tympanomastoid Cavities: Normal Vascular Structures: Normal Osseous Structures: No acute osseous abnormality. Included Lung Apices: Normal IMPRESSION: Nonspecific mild suspected inflammatory changes of the pontine tonsils. No evidence of peritonsillar pathology.
--- NOTE | 2024-10-20 20:27 | EDPHYS ---
Physician Documentation [facility] Name: Selena Penn Age: 39 yrs Sex: Female : 1985 Arrival Date: 10/20/2024 Time: 16:27 Bed 11 Private MD: ED Physician Reinier Arreola HPI: 10/20 17:23 This 39 yrs old Female presents to ER via Ambulatory with complaints of Cough, Sore rn Throat, Neck Swelling. 17:23 The patient or guardian reports cough, flu symptoms. Onset: The symptoms/episode rn began/occurred 2 day(s) ago. Severity of symptoms: At their worst the symptoms were mild, in the emergency department the symptoms are unchanged. Associated signs and symptoms: Pertinent positives: sore throat, Pertinent negatives: chest pain. The patient has not experienced similar symptoms in the past. The patient has not recently seen a physician. Pt reports sore throat for a few days, pain when swallowing and moving neck. No difficulty breathing. No chest pain. . 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 - Infectious Disease History:: Denies. - Social history:: Smoking status: Patient denies any tobacco usage or history of. - Family history:: not pertinent. - Hospitalizations: : No recent hospitalization is reported. ROS: 17:23 Constitutional: Negative for fever, chills, and weight loss, Neck: + neck pain and rn trouble swallowing. Cardiovascular: Negative for chest pain, palpitations, and edema, Respiratory: Negative for shortness of breath, cough, wheezing, and pleuritic chest pain, MS/Extremity: Negative for injury and deformity, Skin: Negative for injury, rash, and discoloration, Exam: 17:23 Constitutional: This is a well developed, well nourished patient who is awake, alert, rn and in no acute distress. ENT: Mild pharyngeal erythema without exudate, no stridor, + tender cervical lymphadenopathy Neck: Trachea midline, no masses palpated, and no cervical lymphadenopathy. Supple, full range of motion without nuchal rigidity, or vertebral point tenderness. No Meningismus. Vital Signs: 16:47 BP 158 / 100; Pulse 95; Resp 18; Temp 97.2; Pulse Ox 100% ; ko1 19:57 BP 149 / 95; Pulse 91; Resp 17 S; Pulse Ox 100% on R/A; ha1 MDM: 16:35 Medical Screening Exam initiated rn 20:25 Differential Diagnosis: Other Tonsillitis, esophagitis. Data reviewed: vital signs, rn nurses notes, lab test result(s), radiologic studies, CT scan, and as a result, I will discharge patient. Counseling: I had a detailed discussion with the patient and/or guardian regarding the historical points, exam findings, and any diagnostic results supporting the discharge/admit diagnosis, lab results, radiology results, the need for outpatient follow up, to return to the emergency department if symptoms worsen or persist or if there are any questions or concerns that arise at home. Special discussion: I discussed with the patient/guardian in detail that at this point there is no indication for admission to the hospital. It is understood, however, that if the symptoms persist or worsen the patient needs to return immediately for re-evaluation. 20:25 ED course: CT shows tonsillitis, no other deep space infection. Will discharge home rn with return precautions and antibiotics. 10/20 16:36 Order name: Flu; Complete Time: 18:56 rn 10/20 16:36 Order name: SARS-COV-2 Antigen Rapid; Complete Time: 18:56 rn 10/20 16:36 Order name: Strep rn 10/20 17:42 Order name: Throat Culture EDNE 10/20 16:51 Order name: CT Soft Tissue Neck W/contr; Complete Time: 20:23 rn 10/20 19:00 Order name: IV Start; Complete Time: 19:09 rn Administered Medications: 20:50 Drug: Amoxicillin-Clavulanate PO 875 mg PO once Route: PO; ha1 20:59 Follow up: Response: No adverse reaction ha1 Disposition Summary: 10/20/24 20:26 Discharge Ordered Notes: Location: Home rn Problem: new rn Symptoms: have improved rn Condition: Stable rn Diagnosis - Pain in throat rn - Acute tonsillitis, unspecified rn Followup: rn - With: Private Physician - When: As needed - Reason: Recheck today's complaints, Re-evaluation by your physician Discharge Instructions: - Discharge Summary Sheet rn - Dysphagia rn - Sore Throat rn - Tonsillitis rn Forms: - Medication Reconciliation Form rn - 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
--- NOTE | 2024-10-20 20:27 | ER ---
Nurse's Notes [facility] Name: Selena Penn Age: 39 yrs Sex: Female : 1985 Arrival Date: 10/20/2024 Time: 16:27 Bed 11 Private MD: Diagnosis: Pain in throat;Acute tonsillitis, unspecified Presentation: 10/20 16:47 Chief complaint: Patient states: a couple of days ago I was fine, then my throat ko1 started feeling like something is stuck in my throat, hurts to swallow. Coronavirus screen: At this time, the client does not indicate any symptoms associated with coronavirus-19. Ebola Screen: No symptoms or risks identified at this time. Initial Sepsis Screen: Does the patient meet any 2 criteria? No. Patient's initial sepsis screen is negative. Does the patient have a suspected source of infection? No. Patient's initial sepsis screen is negative. Risk Assessment: Do you want to hurt yourself or someone else? Patient reports no desire to harm self or others. Onset of symptoms was October 20, 2024. 16:47 Method Of Arrival: Ambulatory ko1 16:47 Acuity: SAMSON 3 ko1 Triage Assessment: 16:49 General: Appears in no apparent distress. Behavior is calm, cooperative, appropriate ko1 for age. Pain: Complains of pain in neck. EENT: Reports difficulty swallowing pain when swallowing. 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 - Infectious Disease History:: Denies. - Social history:: Smoking status: Patient denies any tobacco usage or history of. - Family history:: not pertinent. - Hospitalizations: : No recent hospitalization is reported. Screenin:06 [facility] ED Fall Risk Assessment (Adult) History of falling in the last 3 months, ap3 including since admission No falls in past 3 months (0 pts) Confusion or Disorientation No (0 pts) Intoxicated or Sedated No (0 pts) Impaired Gait No (0 pts) Mobility Assist Device Used No (0 pt) Altered Elimination No (0 pt) Score/Fall Risk Level 0 - 2 = Low Risk Oriented to surroundings, Maintained a safe environment, Educated pt \T\ family on fall prevention, incl call for assistance when getting out of bed, Assessed \T\ reinforced patient's understanding of fall precautions, Hourly rounding (assess needs \T\ fall precautionary measures) done, Used ambulatory aids as needed (educated on \T\ assisted with), Used gait belt as appropriate. Abuse screen: Denies threats or abuse. Nutritional screening: No deficits noted. Tuberculosis screening: No symptoms or risk factors identified. Assessment: 17:05 General: Appears in no apparent distress. Behavior is calm, cooperative, appropriate ap3 for age. Pain: Complains of pain in neck. Neuro: Level of Consciousness is awake, alert, obeys commands, Oriented to person, place, time, situation, Appropriate for age. Cardiovascular: Patient's skin is warm and dry. Respiratory: Airway is patent Respiratory effort is even, unlabored. EENT: Throat with gag reflex present. 19:08 Reassessment: Patient and/or family updated on plan of care and expected duration. Pain ap3 level reassessed. Patient is alert, oriented x 3, equal unlabored respirations, skin warm/dry/pink. 19:55 Reassessment: Patient and/or family updated on plan of care and expected duration. Pain ha1 level reassessed. Patient is alert, oriented x 3, equal unlabored respirations, skin warm/dry/pink. Patient states symptoms have improved. 20:58 Reassessment: Patient and/or family updated on plan of care and expected duration. Pain ha1 level reassessed. Patient is alert, oriented x 3, equal unlabored respirations, skin warm/dry/pink. Respiratory: Airway is patent Respiratory effort is even, unlabored, Respiratory pattern is regular, symmetrical, Breath sounds are clear bilaterally. Vital Signs: 16:47 BP 158 / 100; Pulse 95; Resp 18; Temp 97.2; Pulse Ox 100% ; ko1 19:57 BP 149 / 95; Pulse 91; Resp 17 S; Pulse Ox 100% on R/A; ha1 ED Course: 16:28 Patient arrived in ED. im 16:35 Reinier Arreola MD is Attending Physician. rn 16:49 Triage completed. ko1 16:49 Arm band placed on right wrist. Patient placed in an exam room, Patient notified of ko1 wait time. 17:06 Provided Education on: call light education. ap3 17:06 No provider procedures requiring assistance completed. ap3 17:07 Patient has correct armband on for positive identification. Bed in low position. Call ap3 light in reach. Side rails up X 1. 17:08 Radiology exam delayed due to lab results not completed at this time. (BUN/Creatinine) ls3 test not completed at this time. IV insertion attempt and/or patient not having appropriate IV at this time. 18:00 Meena Lemons, RN is Primary Nurse. ap3 19:08 Inserted saline lock: 22 gauge in right antecubital area, using aseptic technique. ap3 Flushed with 10 mL NS. 19:30 CT Soft Tissue Neck W/contr In Process Unspecified. EDMS 20:59 IV discontinued, intact, bleeding controlled, No redness/swelling at site. Pressure ha1 dressing applied. Administered Medications: 20:50 Drug: Amoxicillin-Clavulanate PO 875 mg PO once Route: PO; ha1 20:59 Follow up: Response: No adverse reaction ha1 Medication: 17:07 VIS not applicable for this client. ap3 Outcome: 20:26 Discharge ordered by . rn 20:59 Discharged to home ambulatory, ha1 20:59 Condition: stable 20:59 Discharge instructions given to patient, Instructed on discharge instructions, follow up and referral plans. medication usage, Demonstrated understanding of instructions, follow-up care, medications, Prescriptions given X 1, 21:00 Patient left the ED. ha1 Signatures: Dispatcher [employer] EDMS Reinier Arreola MD MD rn Prokisch, Amanda, RN RN ap3 Klarissa Maldonado ls3 Emily Cabrera RN RN ha1 Kimberlyn Amin RN RN ko1 Cyndee Couch
[2024-10-20] MEDS ORDERED: AMOX/K CLAV 875 MG TAB ONE (20:52)
[2024-10-21 04:37] VITALS: TEMP 97.2; O2SAT 100
[2024-10-21 04:39] VITALS: BP 149/95
== END 2024-10-20 21:00 | disposition home or self-care (01) ==
LOC: ER 16:27
DX: J03.90 Acute tonsillitis, unspecified (principal); Z11.52 Encounter for screening for COVID-19
CPT/HCPCS: 87070; 36415; 87081; 87804 ×2; 70491; 99284; 87811; Q9967

== ENCOUNTER 2024-11-11 21:41 | Emergency (ER) | payer OTHER ==
--- NOTE | 2024-11-11 22:51 | RAD REPORT ---
EXAMINATION: XR RIGHT SHOUDLER CLINICAL INDICATION: Female, 39 years old. PAIN RIGHT TECHNIQUE:Two view radiograph of the right shoulder were obtained. COMPARISON: No prior exam. FINDINGS: No bone or joint abnormality detected. IMPRESSION: No acute or significant abnormalities.
[2024-11-11] MEDS ORDERED: methocarbamoL 750 MG TAB ONE (23:06)
[2024-11-11] MEDS ORDERED: KETOROLAC 30 MG/ML INJ ONE (23:06)
[2024-11-11] MEDS ORDERED: HYDROCODONE/APAP 7.5/325 MG TAB ONE (23:06)
[2024-11-11] MEDS ORDERED: ACETAMINOPHEN 325 MG TABLET ONE (23:08)
--- NOTE | 2024-11-11 23:34 | EDPHYS ---
Physician Documentation [facility] Name: Selena Penn Age: 39 yrs Sex: Female : 1985 Arrival Date: 11/11/2024 Time: 21:41 Bed DX3 Private MD: ED Physician Karol Alexis HPI: 11/11 23:00 This 39 yrs old Female presents to ER via Ambulatory with complaints of Shoulder Injury.cp 23:00 The patient or guardian complains of an injury, pain, that is acute. right shoulder. cp Context: started after she used right arm to catch herself from falling while moving furniture. reports previous injury to right shoulder when she caught herself from falling off ladder after losing balance. 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 - Infectious Disease History:: Denies. - Social history:: Smoking status: unknown. ROS: 23:05 MS/extremity: Positive for painful ROM, Negative for deformity, paresthesias, cp 23:05 Eyes: Negative for injury, pain, redness, and discharge, cp 23:05 Constitutional: Negative for body aches, chills, fever, poor PO intake, 23:05 Neck: Negative for pain with movement, pain at rest, 23:05 Cardiovascular: Negative for chest pain, edema, palpitations, 23:05 Respiratory: Negative for cough, shortness of breath, wheezing, 23:05 Abdomen/GI: Negative for abdominal pain, nausea, vomiting, and diarrhea, 23:05 Back: Negative for pain at rest, pain with movement, 23:05 Neuro: Negative for altered mental status, dizziness, headache, numbness, weakness, 23:05 All other systems are negative, Exam: 23:10 Constitutional: The patient appears in no acute distress, alert, awake, non-toxic, well cp developed, well nourished, uncomfortable, 23:10 Head/Face: Normocephalic, atraumatic. cp 23:10 Neck: C-spine: vertebral tenderness, is not appreciated, crepitus, is not appreciated, ROM/movement: is normal, is supple, without pain, no range of motions limitations, 23:10 Chest/axilla: Inspection: normal, 23:10 Cardiovascular: Rate: normal, Rhythm: regular, Pulses: Pulses are 2+ in right radial artery. 23:10 Respiratory: the patient does not display signs of respiratory distress, Respirations: normal, no use of accessory muscles, no retractions, labored breathing, is not present, Breath sounds: are clear throughout, no decreased breath sounds, no stridor, no wheezing, 23:10 Back: pain, is absent, ROM is normal, 23:10 Musculoskeletal/extremity: Extremities: noted in the right shoulder: lateral side tenderness and pain, pain with passive ROM, the right hand and right arm Sensation intact. 23:10 Neuro: Orientation: to person, place \T\ time. Mentation: is normal, Motor: moves all fours, strength is normal, Vital Signs: 21:47 BP 151 / 96; Pulse 98; Resp 16; Temp 97.9; Pulse Ox 100% on R/A; Weight 90.72 kg; cm10 Height 5 ft. 0 in. ; Pain 8/10; 23:34 Pain 4/10; me1 23:34 Pain 4/10; me1 23:34 Pain 4/10; me1 23:34 Pain 4/10; me1 21:47 Body Mass Index 39.06 (90.72 kg, 152.4 cm) cm10 21:47 Pain Scale: Adult cm10 23:34 Pain Scale: Adult me1 23:34 Pain Scale: Adult me1 23:34 Pain Scale: Adult me1 23:34 Pain Scale: Adult me1 MDM: 22:48 Medical Screening Exam initiated cp 23:33 Data reviewed: vital signs, nurses notes, radiologic studies, plain films, and as a cp result, I will discharge patient. 23:33 Differential diagnosis: Anterior dislocation with fracture, Anterior dislocation cp without fracture, Posterior dislocation with fracture, Posterior dislocation without fracture, tendonitis. I considered the following discharge prescriptions or medication management in the emergency department Medications were administered in the Emergency Department. See MAR. Independent interpretation of the following test(s) in the Emergency Department X-Ray: My interpretation is images of right shoulder negative for fracture. Counseling: I had a detailed discussion with the patient and/or guardian regarding the historical points, exam findings, and any diagnostic results supporting the discharge/admit diagnosis, radiology results, the need for outpatient follow up, a orthopedic surgeon, to return to the emergency department if symptoms worsen or persist or if there are any questions or concerns that arise at home. Response to treatment: the patient's symptoms have mildly improved after treatment, and as a result, I will discharge patient. 11/11 21:50 Order name: Shoulder Right (2 View) XRAY cm10 11/11 23:09 Order name: Sling; Complete Time: 23:16 cp Administered Medications: 23:08 CANCELLED (Physician Discretion): [id number] mg PO once cp 23:12 Drug: Methocarbamol PO 750 mg PO once Route: PO; me1 23:34 Follow up: Pain 4/10 Adult; Response: No adverse reaction; Pain is decreased me1 23:12 Drug: Acetaminophen PO 650 mg PO once Route: PO; me1 23:34 Follow up: Pain 4/10 Adult; Response: No adverse reaction; Pain is decreased me1 23:13 Drug: Ketorolac IM 30 mg IM once Route: IM; Site: left deltoid; me1 23:34 Follow up: Pain 4/10 Adult; Response: No adverse reaction; Pain is decreased me1 23:13 Drug: Hydrocodone-Acetaminophen PO (7.5 mg-325 mg) 1 tabs PO once; RASS on ADMIN: me1 Combtv4, Very Agttd3, Agttd2, Rstlss1, AlertClm0, Drwsy-1, Lt Sdtn-2, Mod Sdtn-3, Dp Sdtn-4, UnArsble-5 Route: PO; 23:34 Follow up: Pain 4/10 Adult; Response: No adverse reaction; Pain is decreased me1 Disposition Summary: 11/11/24 23:33 Discharge Ordered Notes: Location: Home cp Problem: new cp Symptoms: have improved cp Condition: Stable cp Diagnosis - Pain in right shoulder cp Followup: cp - With: Blayne Levine MD - When: 1 week - Reason: Recheck today's complaints Discharge Instructions: - Discharge Summary Sheet cp - Shoulder Pain cp - Shoulder Range of Motion Exercises cp Forms: - Medication Reconciliation Form cp - Antibiotic Education cp - Prescription Opioid Use cp - Patient Portal Instructions cp - Leadership Thank You Letter cp Prescriptions: - Diclofenac Sodium 75 mg Oral Tablet Sustained Release - take 1 tablet ORAL route 2 times per day; 30 tablet; Refills: 0, Product cp Selection Permitted - methocarbamol 750 mg Oral tablet - take 1 tablet ORAL route 3 times per day; 30 tablet; Refills: 0, Product cp Selection Permitted Signatures: Dispatcher [employer] EDNV Sterling Ortiz PA PA cp Martinez, Clarissa, RN RN cm10 Veronica Truong RN RN me1 Corrections: (The following items were deleted from the chart) 23:08 23:01 Acetaminophen PO 1000 mg PO once ordered. cp cp
--- NOTE | 2024-11-11 23:34 | ER ---
Nurse's Notes [facility] Name: Selena Penn Age: 39 yrs Sex: Female : 1985 Arrival Date: 11/11/2024 Time: 21:41 Bed DX3 Private MD: Diagnosis: Pain in right shoulder Presentation: 11/11 21:47 Chief complaint: Patient states: right shoulder pain onset tonight. pt states that she cm10 had a previous injury and tonight was moving furniture and started having pain again. Coronavirus screen: Client denies travel out of the [place] in the last 14 days. Ebola Screen: Patient denies travel to an Ebola-affected area in the 21 days before illness onset. Initial Sepsis Screen: Does the patient meet any 2 criteria? HR > 90 bpm. Does the patient have a suspected source of infection? No. Patient's initial sepsis screen is negative. Risk Assessment: Do you want to hurt yourself or someone else? Patient reports no desire to harm self or others. Onset of symptoms was November 11, 2024. 21:47 Method Of Arrival: Ambulatory cm10 21:47 Acuity: SAMSON 4 cm10 Triage Assessment: 21:49 General: Appears in no apparent distress. comfortable, Behavior is calm, cooperative. cm10 Neuro: No deficits noted. Level of Consciousness is awake, alert, obeys commands, Oriented to person, place, time, situation, Appropriate for age. Respiratory: No deficits noted. Airway is patent Respiratory effort is even, unlabored, Respiratory pattern is regular, symmetrical. 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 - Infectious Disease History:: Denies. - Social history:: Smoking status: unknown. Screenin:57 [facility] ED Fall Risk Assessment (Adult) History of falling in the last 3 months, me1 including since admission No falls in past 3 months (0 pts) Confusion or Disorientation No (0 pts) Intoxicated or Sedated No (0 pts) Impaired Gait No (0 pts) Mobility Assist Device Used No (0 pt) Altered Elimination No (0 pt) Score/Fall Risk Level 0 - 2 = Low Risk Maintained a safe environment, Provided non-skid footwear, Hourly rounding (assess needs \T\ fall precautionary measures) done. Abuse screen: Denies threats or abuse. Nutritional screening: No deficits noted. Tuberculosis screening: No symptoms or risk factors identified. Assessment: 22:57 General: Appears uncomfortable, obese, well groomed, well developed, Behavior is calm, me1 cooperative, appropriate for age, Reports right shoulder pain onset tonight. pt states that she had a previous injury and tonight was moving furniture and started having pain again. Pain: Complains of pain in anterior aspect of right shoulder Pain does not radiate. Pain currently is 7 out of 10 on a pain scale. Quality of pain is described as aching, sharp, Pain began suddenly, Is continuous. Neuro: Level of Consciousness is awake, alert, obeys commands, Oriented to person, place, time, situation, Appropriate for age. Cardiovascular: Patient's skin is warm and dry. Respiratory: Airway is patent Trachea midline Respiratory effort is even, unlabored, Respiratory pattern is regular, symmetrical. GI: No signs and/or symptoms were reported involving the gastrointestinal system. : No signs and/or symptoms were reported regarding the genitourinary system. EENT: No signs and/or symptoms were reported regarding the EENT system. Derm: Skin is intact, is healthy with good turgor, Skin is pink, warm \T\ dry. Musculoskeletal: Circulation, motion, and sensation intact. Range of motion: limited in right shoulder Reports pain in anterior aspect of right shoulder. Injury Description: right shoulder pain onset tonight. pt states that she had a previous injury and tonight was moving furniture and started having pain again. Vital Signs: 21:47 BP 151 / 96; Pulse 98; Resp 16; Temp 97.9; Pulse Ox 100% on R/A; Weight 90.72 kg; cm10 Height 5 ft. 0 in. ; Pain 8/10; 23:34 Pain 4/10; me1 23:34 Pain 4/10; me1 23:34 Pain 4/10; me1 23:34 Pain 4/10; me1 21:47 Body Mass Index 39.06 (90.72 kg, 152.4 cm) cm10 21:47 Pain Scale: Adult cm10 23:34 Pain Scale: Adult me1 23:34 Pain Scale: Adult me1 23:34 Pain Scale: Adult me1 23:34 Pain Scale: Adult me1 ED Course: 21:43 Patient arrived in ED. mr 21:48 Triage completed. cm10 21:49 Arm band placed on left wrist. Patient placed in waiting room. cm10 22:33 Shoulder Right (2 View) XRAY In Process Unspecified. EDMS 22:48 Sterling Ortiz PA is PHCP. cp 22:48 Karol Alexis MD is Attending Physician. cp 22:57 Patient has correct armband on for positive identification. Call light in reach. me1 Provided Education on: POC. Verbalized understanding.. 22:57 No provider procedures requiring assistance completed. me1 23:33 Blayne Levine MD is Referral Physician. cp 23:35 Patient did not have IV access during this emergency room visit. me1 Administered Medications: 23:08 CANCELLED (Physician Discretion): [id number] mg PO once cp 23:12 Drug: Methocarbamol PO 750 mg PO once Route: PO; me1 23:34 Follow up: Pain 4/10 Adult; Response: No adverse reaction; Pain is decreased me1 23:12 Drug: Acetaminophen PO 650 mg PO once Route: PO; me1 23:34 Follow up: Pain 4/10 Adult; Response: No adverse reaction; Pain is decreased me1 23:13 Drug: Ketorolac IM 30 mg IM once Route: IM; Site: left deltoid; me1 23:34 Follow up: Pain 4/10 Adult; Response: No adverse reaction; Pain is decreased me1 23:13 Drug: Hydrocodone-Acetaminophen PO (7.5 mg-325 mg) 1 tabs PO once; RASS on ADMIN: me1 Combtv4, Very Agttd3, Agttd2, Rstlss1, AlertClm0, Drwsy-1, Lt Sdtn-2, Mod Sdtn-3, Dp Sdtn-4, UnArsble-5 Route: PO; 23:34 Follow up: Pain 4/10 Adult; Response: No adverse reaction; Pain is decreased me1 Medication: 22:57 VIS not applicable for this client. me1 Outcome: 23:33 Discharge ordered by . cp 23:39 Discharged to home ambulatory, with family, me1 23:39 Condition: stable 23:39 Discharge instructions given to patient, Instructed on discharge instructions, follow up and referral plans. medication usage, Demonstrated understanding of instructions, follow-up care, medications, Prescriptions given X 2, 23:39 Patient left the ED. me1 Signatures: Dispatcher [employer] EDMS BergBetina, Reg Reg mr Sterling Ortiz, RAHEL PA Jordyn Sánchez RN RN cm10 Veronica Truong RN RN me1 Corrections: (The following items were deleted from the chart) 22:57 21:47 Chief complaint: Patient states: right shoulder pain onset tonight. pt states me1 that she had a previous injury and tonight was moving furniture and started having pain again. cm10
[2024-11-12 00:50] VITALS: BP 151/96; TEMP 97.9; O2SAT 100
== END 2024-11-11 23:39 | disposition home or self-care (01) ==
LOC: ER 21:41
DX: M25.511 Pain in right shoulder (principal)
CPT/HCPCS: 96372; 99284